=== PATIENT | female | born 1970 | race Hispanic/Latino ===

== ENCOUNTER 2018-06-13 00:21 | Inpatient (IN) | payer MEDICARE, OTHER ==
--- NOTE | 2018-06-13 01:13 | ED PDOC ---
Arrival/HPI - General Chief Complaint: Shortness Of Breath Time Seen by Provider: 06/13/18 00:29 Historian: Other (Attendants) - Critical Care Critical Care Minutes: 30 minutes - History of Present Illness Narrative History of Present Illness (Text): 06/13/18 01:09 A 47 year old female, whose past medical history includes developmental delay, mitral regurgitation, deafness, glaucoma, aortic insufficiency, presents from intermediate via EMS accompanied by attendant for further evaluation of exertional dyspnea and occasional perioral cyanosis over the past couple of days. Patient was seen in [facility]. Patient had extensive work up including labs, ultrasound of lower extremities, and CT Chest Angio. Results were noted. No evidence of any DVT, no embolis, Pulmonary emboli. Patient with a pleural effusion, possible CHF with slight elevation of BNP. Case was discussed with Dr. Whitehead from the [facility]. Patient was administered Lasix there. Patient remains stable. Request from the attendants to transfer patient to [place] for admission and further evaluation. Patient has remained stable with no fevers, chills, headache, dizziness, chest pain, shortness of breath, abdominal pain, nausea, vomiting, diarrhea, back pain, neck pain, urinary/bowel changes, or any other complaint. Patient's symptoms appear to be only exertional. Time/Duration: Other (Several Days) Symptom Onset: Sudden Symptom Course: Unchanged Activities at Onset: Rest, Light Context: Home (Detention) Past Medical History - Provider Review Nursing Documentation Reviewed: Yes - Cardiac Hx Cardiac Disorders: Yes Other/Comment: congenital heart defect - HEENT Hx HEENT Disorder: Yes Hx Blind: Yes Hx Deafness: Yes Hx Glaucoma: Yes - Psychiatric Hx Substance Use: No Family/Social History - Physician Review Nursing Documentation Reviewed: Yes Family/Social History: No Known Family HX Smoking Status: Never Smoked Hx Alcohol Use: No Hx Substance Use: No Allergies/Home Meds Allergies/Adverse Reactions: Allergies bee venom protein (honey bee) Adverse Reaction (Verified 06/13/18 14:09) ANAPHYLAXIS NSAIDS (Non-Steroidal Anti-Inflamma Adverse Reaction (Verified 06/13/18 14:09) NAUSEA Home Medications: Home Meds Medication Instructions Recorded Confirmed Aspirin [Lo-Dose Aspirin EC] 1 tab PO DAILY 06/13/18 Atenolol [Tenormin] 1 tab PO DAILY 06/13/18 06/13/18 Buspirone HCl [Buspirone HCl] 1 tab PO DAILY 06/13/18 06/13/18 Clonazepam [Klonopin] 1 tab PO DAILY 06/13/18 06/13/18 Dorzolamide 2% [Trusopt] 1 - 2 drop OU 06/13/18 FLUoxetine [Prozac] 1 tab PO DAILY 06/13/18 06/13/18 Famotidine [Heartburn Prevention] 1 tab PO DAILY 06/13/18 06/13/18 Ferrous Gluconate [Ferrous 1 tab PO DAILY 06/13/18 06/13/18 Gluconate] Latanoprost 0.005% Opht [Xalatan 1 drop OU 06/13/18 Opht] Rivaroxaban [Xarelto] 1 tab PO DAILY 06/13/18 06/13/18 Trazodone HCl [Trazodone HCl] 1 tab PO DAILY 06/13/18 06/13/18 acetaZOLAMIDE [Diamox 250 mg Tab] 1 tab PO TID 06/13/18 06/13/18 Review of Systems - Physician Review All systems were reviewed & negative as marked: Yes - Review of Systems Constitutional: absent: Fevers, Night Sweats Respiratory: absent: SOB, Cough Cardiovascular: PINEDA. absent: Chest Pain Gastrointestinal: absent: Abdominal Pain, Diarrhea, Nausea, Vomiting Genitourinary Female: absent: Urine Output Changes Musculoskeletal: absent: Back Pain, Neck Pain Skin: Other (Perioral cyanosis ) Neurological: absent: Headache, Dizziness Physical Exam Vital Signs Reviewed: Yes Vital Signs Temp Pulse Resp BP Pulse Ox 06/13/18 05:59 81 19 90/47 L 94 L 06/13/18 04:36 80 18 88/45 L 100 06/13/18 02:19 79 20 83/51 L 100 06/13/18 00:34 98.1 F 84 16 92/57 L 100 Temperature: Afebrile Blood Pressure: Hypotensive Pulse: Regular Respiratory Rate: Normal Appearance: Positive for: Non-Toxic Pain Distress: None Mental Status: No: Alert and Oriented X 3 (Awake and Alert) - Systems Exam Head: Present: Atraumatic, Normocephalic Pupils: Present: Other (Irregularly shaped pupils. ) Extroacular Muscles: Present: EOMI Conjunctiva: Present: Other ((+) Glaucoma) Mouth: Present: Moist Mucous Membranes Neck: Present: Normal Range of Motion Respiratory/Chest: Present: Clear to Auscultation, Good Air Exchange. No: Respiratory Distress, Accessory Muscle Use Cardiovascular: Present: Other (3/6 systolic murmur) Abdomen: No: Tenderness, Distention, Peritoneal Signs Back: Present: Normal Inspection Upper Extremity: Present: Normal Inspection. No: Cyanosis, Edema Lower Extremity: Present: Normal Inspection. No: Edema, Cyanosis Neurological: Present: GCS=15, CN II-XII Intact, Speech Normal Skin: Present: Warm, Dry, Normal Color. No: Rashes Psychiatric: Present: Alert (Awake and Alert), Normal Insight, Normal Concentration Medical Decision Making ED Course and Treatment: 06/13/18 01:18 Impression: A 47 year old female presents to the emergency department via EMS from [facility] for further evaluation of exertional dyspnea and occasional perioral cyanosis. Plan: -- EKG -- Labs -- Reassess and disposition Progress Notes: 06/13/18 02:38: Patient with hypotension. Case discussed with Dr. Santoyo and regional medical director. Will come evaluate patient in the emergency department. 06/13/18 02:47 EKG: Ordered, reviewed, and independently interpreted the EKG. Rate : 81 BPM Rhythm : NSR Interpretation : 1st degree AV block. LAD. Septal infarct. Non-specific ST-T changes. 06/13/18 04:13: Case discussed with Dr Santoyo and regional medical director. State patient is stable for telemetry admission at this time. Accepts to hospitalist service. - Lab Interpretations Lab Results: 06/13/18 01:25 06/13/18 01:25 Lab Results 06/13/18 01:25: WBC 10.5, RBC 3.07 L, Hgb 8.3 L, Hct 27.4 L, MCV 89.3, MCH 27.0 , MCHC 30.3 L, RDW 13.9, Plt Count 263, MPV 12.4 H 06/13/18 01:25: Sodium 140, Potassium 3.8, Chloride 105, Carbon Dioxide 25, Anion Gap 14, BUN 16, Creatinine 0.7, Est GFR ( Amer) > 60, Est GFR (Non- Af Amer) > 60, Random Glucose 102, Calcium 8.5, Total Bilirubin 0.4, AST 30, ALT 35, Alkaline Phosphatase 67, Lactate Dehydrogenase 523, Total Creatine Kinase < 20 L, Troponin I < 0.01, NT-Pro-B Natriuret Pep 1180 H, Total Protein 6.9, Albumin 3.8, Globulin 3.1, Albumin/Globulin Ratio 1.2 06/13/18 01:25: PT 19.5 H, INR 1.69 H, APTT 35.8 - EKG Interpretation Interpreted by ED Physician: Yes Type: 12 lead EKG - Medication Orders Current Medication Orders: Buspirone HCl (Buspar) 30 mg PO DAILY [facility] Last Admin: 06/13/18 10:13 Dose: 30 mg Behavioural Document 06/13/18 10:13 RAMOM (Rec: 06/13/18 10:13 [facility] [place] [place] Maintenance Maintenance Dose Yes Nonmedicinal Nonmedicinal Interventions Redirect Behavior Behavior for Medication: Anxiety Re-Assess: Reassess Psych Meds Document 06/13/18 11:13 RAMOM (Rec: 06/13/18 11:16 [facility] [facility] [place] [facility] Reassess Psych Med Effective Clonazepam (Klonopin) 1 mg PO DAILY [facility] PRN Reason: Protocol Last Admin: 06/13/18 11:00 Dose: 1 mg Behavioural Document 06/13/18 11:00 RAMOM (Rec: 06/13/18 11:00 [facility] [place] Maintenance Maintenance Dose Yes Nonmedicinal Nonmedicinal Interventions Redirect Behavior Behavior for Medication: Anxiety Re-Assess: Reassess Psych Meds Document 06/13/18 12:00 RAMOM (Rec: 06/13/18 13:19 [facility] [place] Reassess Psych Med Effective Dorzolamide HCl (Trusopt) 0 ml OU TID [facility] Last Admin: 06/13/18 13:20 Dose: 1 drop Ferrous Gluconate (Fergon) 324 mg PO DAILY [facility] Last Admin: 06/13/18 10:12 Dose: 324 mg Fluoxetine HCl (Prozac) 10 mg PO DAILY [facility] Last Admin: 06/13/18 10:12 Dose: 10 mg Home Med (Home Med) 0 unit OU TID [facility] Latanoprost (Xalatan Opht) 0 ml OU HS [facility] Metoprolol Tartrate (Lopressor) 25 mg PO BID [facility] Last Admin: 06/13/18 13:49 Dose: 25 mg MAR Pulse and Blood Pressure Document 06/13/18 13:49 RAMOM (Rec: 06/13/18 13:50 [facility] [place] [place] Pulse Pulse Rate (60-90) 80 Blood Pressure Blood Pressure (100/60-150/90) 92/63 Pantoprazole Sodium (Protonix Ec Tab) 40 mg PO 0600 [facility] Pilocarpine HCl (Isopto Carpine 1% Opht Soln) 0 ml OD QID [facility] Last Admin: 06/13/18 13:20 Dose: 1 drop Rivaroxaban (Xarelto) 20 mg PO DAILY [facility] PRN Reason: Protocol Last Admin: 06/13/18 10:12 Dose: 20 mg Trazodone HCl (Desyrel) 100 mg PO HS [facility] Discontinued Medications Adenosine (Adenosine 6 Mg/2 Ml Inj) 6 mg IVP ONCE ONE Stop: 06/13/18 14:22 Last Admin: 06/13/18 14:15 Dose: 6 mg IVP Administration Document 06/13/18 14:15 RAMOM (Rec: 06/13/18 14:53 [facility] [place] [place] Charges for Administration # of IVP Administrations 1 Furosemide (Lasix) 20 mg IVP ONCE ONE Stop: 06/13/18 16:39 Trazodone HCl (Desyrel) 100 mg PO DAILY [facility] - Scribe Statement The provider has reviewed the documentation as recorded by the Frank Sanchez Provider Scribe Attestation: All medical record entries made by the Scribe were at my direction and personally dictated by me. I have reviewed the chart and agree that the record accurately reflects my personal performance of the history, physical exam, medical decision making, and the department course for this patient. I have also personally directed, reviewed, and agree with the discharge instructions and disposition. Disposition/Present on Arrival - Present on Arrival Any Indicators Present on Arrival: No History of DVT/PE: No History of Uncontrolled Diabetes: No Urinary Catheter: No History of Decub. Ulcer: No History Surgical Site Infection Following: None - Disposition Have Diagnosis and Disposition been Completed?: Yes Diagnosis: CHF (congestive heart failure) Disposition: HOSPITALIZED Disposition Time: 04:12 Patient Problems: Current Active Problems Problem Status Onset CHF (congestive heart failure) Acute Condition: STABLE
[2018-06-13 01:37] LABS: HEMOGLOBIN 8.3 g/dL (12.0-16.0); MEAN CELL VOLUME 89.3 fl (80.0-105.0); MEAN CORPUSCULAR HGB CONC 30.3 g/dl (31.0-37.0); MEAN PLATELET VOLUME 12.4 fl (7.0-11.0); RBC 3.07 10^6/uL (3.5-6.1); RED CELL DISTRIBUTION WIDTH 13.9 % (11.5-14.5); WHITE BLOOD COUNT 10.5 10^3/ul (4.5-11.0)
[2018-06-13 01:46] LABS: ALB/GLOB RATIO 1.2 (1.1-1.8); ALBUMIN 3.8 g/dL (3.0-4.8); ALT/SGPT 35 U/L (7-56); AST/SGOT 30 U/L (14-36); BLOOD UREA NITROGEN 16 mg/dL (7-21); CALCIUM 8.5 mg/dL (8.4-10.5); GFR AFRICAN-AMERICAN > 60; GFR NON-AFRICAN AMERICAN > 60
[2018-06-13 01:57] LABS: B-TYPE NATRIURETIC PEPTIDE 1180 pg/mL (0-450); TROPONIN I < 0.01 ng/mL
[2018-06-13 02:21] LABS: INR 1.69 (0.93-1.08); PARTIAL THROMBOPLASTIN TIME 35.8 Seconds (25.1-36.5); PROTHROMBIN TIME 19.5 SECONDS (9.4-12.5)
[2018-06-13 05:09] LABS: BASO # 0.09 K/mm3 (0.0-2.0); EOS # 0.5 (0.0-0.7); EOS % 5.1 % (1.5-5.0); GRAN # 6.37 (1.4-6.5); HEMOGLOBIN 7.8 g/dL (12.0-16.0); LYMPH # 1.2 (1.2-3.4); LYMPH % 13.2 % (22.0-35.0); MEAN CELL VOLUME 89.8 fl (80.0-105.0); MEAN CORPUSCULAR HEMOGLOBIN 27.4 pg (25.0-35.0); MEAN CORPUSCULAR HGB CONC 30.5 g/dl (31.0-37.0); MEAN PLATELET VOLUME 12.3 fl (7.0-11.0); MONO % 10.7 % (1.0-6.0); RBC 2.85 10^6/uL (3.5-6.1); WHITE BLOOD COUNT 9.1 10^3/ul (4.5-11.0)
--- NOTE | 2018-06-13 05:36 | CP.PCM.CON ---
History of Present Illness - History of Present Illness History of Present Illness: Tanner Vivas PGY1 Internal Medicine Web Consultant - ICU Consult Note Past Patient History - Past Social History Smoking Status: Never Smoked - CARDIAC Hx Cardiac Disorders: Yes Other/Comment: congenital heart defect - HEENT Hx HEENT Problems: Yes Hx Blind: Yes Hx Deafness: Yes Hx Glaucoma: Yes - PSYCHIATRIC Hx Substance Use: No Meds Allergies/Adverse Reactions: Allergies Allergy/AdvReac Type Severity Reaction Status Date / Time bee venom protein (honey bee) AdvReac ANAPHYLAXIS Verified 06/13/18 00:39 NSAIDS (Non-Steroidal AdvReac NAUSEA Verified 06/13/18 00:39 Anti-Inflamma Results - Vital Signs Recent Vital Signs: Last Vital Signs Temp 98.1 F 06/13/18 00:34 Pulse 80 06/13/18 04:36 Resp 18 06/13/18 04:36 BP 88/45 L 06/13/18 04:36 Pulse Ox 100 06/13/18 04:36 - Labs Result Diagrams: 06/13/18 05:00 06/13/18 01:25 Labs: Laboratory Results - last 24 hr 06/13/18 05:00 WBC 9.1 RBC 2.85 L Hgb 7.8 L Hct 25.6 L MCV 89.8 MCH 27.4 MCHC 30.5 L RDW 14.0 Plt Count 248 MPV 12.3 H Gran % 70.0 H Lymph % (Auto) 13.2 L [place] % (Auto) 10.7 H Eos % (Auto) 5.1 H Baso % (Auto) 1.0 Gran # 6.37 Lymph # (Auto) 1.2 [place] # (Auto) 1.0 H Eos # (Auto) 0.5 Baso # (Auto) 0.09
[2018-06-13 06:06] LABS: IRON 21 ug/dL (45-180)
[2018-06-13 06:08] LABS: ALB/GLOB RATIO 1.1 (1.1-1.8); ALBUMIN 3.4 g/dL (3.0-4.8); ALT/SGPT 32 U/L (7-56); AST/SGOT 23 U/L (14-36); BLOOD UREA NITROGEN 14 mg/dL (7-21); CALCIUM 8.3 mg/dL (8.4-10.5); GFR AFRICAN-AMERICAN > 60; GFR NON-AFRICAN AMERICAN > 60
[2018-06-13 06:15] LABS: % IRON SATURATION 6 % (20-55); TOTAL IRON BINDING CAPACITY 322 ug/dL (265-497)
--- NOTE | 2018-06-13 06:24 | CP.PCM.HP ---
<Tanner Vivas - Last Filed: 06/13/18 06:03> History of Present Illness - History of Present Illness History of Present Illness: Tanner Vivas DO PGY1 Internal Medicine [employer]cher - Hospital H&P CC: Exertional Dyspnea/ Cyanosis/ Cough 47F w/ a PMH significant for developmental delay, deafness, autism, congenital rubella syndrome, glaucoma, mitral regurgitation, aortic insufficiency, atrial fibrillation anticoagulated w/ xarvaheo [place] [facility] [place] w/ CC of exertional dyspnea, cyanosis, and cough. She is developmentally delayed, only communicates w/ sign language. Care givers noticed that patient has been less tolerant to ambulation and requires frequent stops when walking to catch breath since Monday. Patient was also noted to have increasing cough and wheezing; denies She was sent to [facility] ED and transferred subsequently to [facility] for [place]. Per report, at [facility] pt had no LE DVT on US, CT chest angio showed no PE, did show R sided small pleural effusion; BNP elevated, and subsequently administered lasix. In ED patient was noted to be hypotensive 80s/ 50s HR in 80s with some runs of tachycardia in @ 115. Per field care coordinator pt has not had any decreased appetite, urinary complaints, bowel complaints, hematochezia, melena, sick contacts, recent travel, wt loss/gain, fever, chill, N/V/D/C, . Remainder of ROS was unable to be assessed due to pt's baseline mentation. PMD: Dr. Shepard [place] [facility]: [facility] PMH: As Above Social: Lives in correction; able to ambulate w/o cane Present on Admission - Present on Admission Any Indicators Present on Admission: No Review of Systems - Review of Systems Systems not reviewed;Unavailable: Other (Baseline mentation) Past Patient History - Past Social History Smoking Status: Never Smoked - CARDIAC Hx Cardiac Disorders: Yes Other/Comment: congenital heart defect - HEENT Hx HEENT Problems: Yes Hx Blind: Yes Hx Deafness: Yes Hx Glaucoma: Yes - PSYCHIATRIC Hx Substance Use: No Meds Allergies/Adverse Reactions: Allergies Allergy/AdvReac Type Severity Reaction Status Date / Time bee venom protein (honey bee) AdvReac ANAPHYLAXIS Verified 06/13/18 00:39 NSAIDS (Non-Steroidal AdvReac NAUSEA Verified 06/13/18 00:39 Anti-Inflamma Physical Exam - Constitutional Appears: Non-toxic - Head Exam Head Exam: ATRAUMATIC, NORMOCEPHALIC - Eye Exam Additional comments: Clouded; Cataracts BL - ENT Exam Additional comments: Poor dentation - Neck Exam Neck exam: Positive for: Normal Inspection - Respiratory Exam Respiratory Exam: Rhonchi (BL), NORMAL BREATHING PATTERN. absent: Wheezes - Cardiovascular Exam Cardiovascular Exam: +S1, +S2 Additional comments: Systolic murmur at Aortic Post 3/6 Systolic Murmur at Pulmonary Post 5/6 Systolic Murmur at mitral Post 3/6 - GI/Abdominal Exam GI & Abdominal Exam: Normal Bowel Sounds, Soft. absent: Tenderness - Rectal Exam Rectal Exam: NORMAL INSPECTION Additional comments: FOBT+ - Extremities Exam Extremities exam: Positive for: pedal edema Additional comments: 2+ BL pitting - Psychiatric Exam Additional comments: Appears to be at baseline - Skin Skin Exam: Dry, Intact, Warm Results - Vital Signs Recent Vital Signs: Last Vital Signs Temp 98.1 F 06/13/18 00:34 Pulse 81 06/13/18 05:59 Resp 19 06/13/18 05:59 BP 90/47 L 06/13/18 05:59 Pulse Ox 94 L 06/13/18 05:59 - Labs Result Diagrams: 06/13/18 05:00 06/13/18 01:25 Labs: Laboratory Results - last 24 hr 06/13/18 05:00 WBC 9.1 RBC 2.85 L Hgb 7.8 L Hct 25.6 L MCV 89.8 MCH 27.4 MCHC 30.5 L RDW 14.0 Plt Count 248 MPV 12.3 H Gran % 70.0 H Lymph % (Auto) 13.2 L [place] % (Auto) 10.7 H Eos % (Auto) 5.1 H Baso % (Auto) 1.0 Gran # 6.37 Lymph # (Auto) 1.2 [place] # (Auto) 1.0 H Eos # (Auto) 0.5 Baso # (Auto) 0.09 Assessment & Plan - Assessment and Plan (Free Text) Assessment: 47F w/ a PMH significant for developmental delay, deafness, autism, congenital rubella syndrome, glaucoma, mitral regurgitation, aortic insufficiency, atrial fibrillation anticoagulated w/ xarleto [place] [facility] [place] w/ CC of exertional dyspnea, cyanosis, and cough. Exertional Dyspnea - Pulmonary Edema 2/2 Pulmonary HTN vs Anemia vs Infective etiology CT[facility] from [facility] ED shows R sided pleural effusion; Pt. given 40 lasix at [facility] O2 Sat >95% on nonrebreather; 80-85% off of nonrebreather mask Unclear if murmur at pulmonic position is new onset; no mention in prior documentation [facility] 1180 Hold Acetozolamide 2/2 Hypotension Procal pending ABG pending CXR pending Echocardiogram pending Cardiology consulted Normocytic Anemia Anemia appears to be chronic given patient is on Fe supplement; however unable to establish baseline Hb at this time Follow up w/ PMD Dr. Shepard; FOBT + however appears to be false given Oral Fe Supplement; No gross blood on exam; no tarry stool on exam Iron, TIBC, B12, Folate, Levels pending Hx Atrial Fibrillation Hold rate control w/ atenolol 2/2 Hypotension C/w home Xarleto 1mg QD Hx Psychiatric Disorder/ Developmental Delay -C/w Home Rx below: Buspirone 1mg QD clonazepam 1mg QD prozac 1mg QD Trazadone 1 tab HS GI/ DVT PPX: Protonix / Xarelto as above Dispo: Admit to telemetry for further evaluation of dyspnea/SOB Tanner Vivas DO PGY1 Internal Medicine [employer]cher - Date & Time Date: 06/13/18 Time: 06:25 <Yousif Ortega - Last Filed: 06/13/18 07:04> Results - Vital Signs Recent Vital Signs: Last Vital Signs Temp 98.1 F 06/13/18 00:34 Pulse 81 06/13/18 05:59 Resp 19 06/13/18 05:59 BP 90/47 L 06/13/18 05:59 Pulse Ox 94 L 06/13/18 05:59 - Labs Result Diagrams: 06/13/18 05:00 06/13/18 05:00 Labs: Laboratory Results - last 24 hr 06/13/18 06/13/18 06/13/18 05:00 05:00 05:00 WBC 9.1 RBC 2.85 L Hgb 7.8 L Hct 25.6 L MCV 89.8 MCH 27.4 MCHC 30.5 L RDW 14.0 Plt Count 248 MPV 12.3 H Gran % 70.0 H Lymph % (Auto) 13.2 L [place] % (Auto) 10.7 H Eos % (Auto) 5.1 H Baso % (Auto) 1.0 Gran # 6.37 Lymph # (Auto) 1.2 [place] # (Auto) 1.0 H Eos # (Auto) 0.5 Baso # (Auto) 0.09 Sodium 140 Potassium 3.8 Chloride 107 Carbon Dioxide 25 Anion Gap 12 BUN 14 Creatinine 0.7 Est GFR ( Amer) > 60 Est GFR (Non-Af Amer) > 60 Random Glucose 97 Calcium 8.3 L Iron 21 L TIBC 322 % Saturation 6 L Total Bilirubin 0.3 AST 23 ALT 32 Alkaline Phosphatase 60 Total Protein 6.3 Albumin 3.4 Globulin 3.0 Albumin/Globulin Ratio 1.1 Assessment & Plan - Assessment and Plan (Free Text) Plan: Pt seen and examined by me independently, I agree with the above note by resident.
[2018-06-13 07:16] LABS: ARTERIAL BLOOD GAS PCO2 43 mm/Hg (35-45); ARTERIAL BLOOD GAS PH 7.38 (7.35-7.45)
[2018-06-13 07:17] LABS: ARTERIAL BLOOD GAS HCO3 25.4 mmol/L (21-28); ARTERIAL BLOOD GAS TCO2 26.7 mmol.L (22-28)
[2018-06-13 07:18] LABS: ARTERIAL BLOOD GAS O2 SAT 99.8 % (95-98)
[2018-06-13] MEDS ORDERED: Sodium Chloride 0.9% 250 ML IV STA (07:24)
[2018-06-13] MEDS: Dorzolamide 2% Opht Sol 10ml OU SCH ×3 (11:00→17:44)
--- NOTE | 2018-06-13 11:08 | CP.PCM.CON ---
History of Present Illness - History of Present Illness History of Present Illness: John Hale DO PGY-1, ICU Consult note for Dr. Mccoy CC: Exertional Dyspnea/ Cyanosis/ Cough 47F w/ a PMH of developmental delay, deafness, autism, congenital rubella syndrome, HTN, glaucoma, mitral regurgitation, aortic insufficiency, atrial fibrillation anticoagulated w/ Xarelto (last dose 6 pm 06/12), neurogenic bladder (wears adult diaper), anxiety presents to [facility] on 06/13 w/ CC of exertional dyspnea, cyanosis, and cough. She is developmentally delayed, only communicates w/ sign language and finger spelling with caretaker resort (Bar). Pt' s sputum has not been evaluated as she is swallowing after coughing. Care givers reports pt has had shortness of breath on 06/08, with associated blue discoloration of lips, that resolved after five minutes of rest. Caregiver also states that the patient's lips turned blue again while short of breath last night, which prompted evaluation at [facility] ED. As per reports, bilateral lower extremity dopplar showed no evidence of DVT. Chest CTA showed no PE, right sided small pleural effusion. Pt's BNP was elevated at 400, and she received Lasix 40 mg IVP. Pt was admitted to the floor early this morning for medical management. ICU was consulted for respiratory distress ( tachypnea) and hypotension (90/47). Pt was seen and examined at bedside. Translation was done by caregiver using combination of sign language and finger spelling. We attempted using [employer] video translation but pt is not fluent in sign language and unable to understand video job putter up and ticket preparer. As per caregiver, pt feels the same as earlier today without any substantial improvement. Pt has not had decreased appetite, urinary complaints, bowel complaints, hematochezia, melena, recent travel, wt loss/gain, fever, chill, N/V/D/C. Pt denies chest pain. PMD: Dr. Shepard, [place] Pharmacy: [facility] PMH: see HPI PSHx: open heart surgery likely due to valve replacement; caregiver denies history of CAD FMHx: father is deaf; mother 3 years ago (cause unknown) Allx: Bee sting, NSAIDs Social: Lives in [facility]; able to ambulate w/o cane. denies etoh, smoking, illicit drug use. Review of Systems - Review of Systems Systems not reviewed;Unavailable: Language Barrier (pt is deaf, and autistic; poor communication with sign language) All systems: reviewed and no additional remarkable complaints except (as per HPI ) Past Patient History - Past Social History Smoking Status: Never Smoked Alcohol: None Drugs: Denies Home Situation {Lives}: Other (lives in [facility]) - CARDIAC Hx Cardiac Disorders: Yes Hx Atrial Fibrillation: Yes (on xarelto) Hx Hypertension: Yes Other/Comment: congenital heart defect - NEUROLOGICAL Other/Comment: autism, congential rubella syndrome - HEENT Hx HEENT Problems: Yes Hx Blind: Yes Hx Deafness: Yes Hx Glaucoma: Yes - GENITOURINARY/GYNECOLOGICAL Hx Genitourinary Disorders: Yes (neurogenic bladder) - PSYCHIATRIC Hx Anxiety: Yes Hx Substance Use: No - SURGICAL HISTORY Hx Surgeries: Yes (open heart) Meds Allergies/Adverse Reactions: Allergies Allergy/AdvReac Type Severity Reaction Status Date / Time bee venom protein (honey bee) AdvReac ANAPHYLAXIS Verified 06/13/18 00:39 NSAIDS (Non-Steroidal AdvReac NAUSEA Verified 06/13/18 00:39 Anti-Inflamma - Medications Medications: Current Medications Buspirone HCl (Buspar) 30 mg PO DAILY LURDES Clonazepam (Klonopin) 1 mg PO DAILY LURDES PRN Reason: Protocol Dorzolamide HCl (Trusopt) 0 ml OU TID LURDES Ferrous Gluconate (Fergon) 324 mg PO DAILY LURDES Fluoxetine HCl (Prozac) 10 mg PO DAILY LURDES Latanoprost (Xalatan Opht) 0 ml OU HS LURDES Pantoprazole Sodium (Protonix Ec Tab) 40 mg PO 0600 LURDES Rivaroxaban (Xarelto) 20 mg PO DAILY LURDES PRN Reason: Protocol Trazodone HCl (Desyrel) 100 mg PO HS LURDES Physical Exam - Constitutional Appears: No Acute Distress - Head Exam Head Exam: ATRAUMATIC, NORMAL INSPECTION. absent: NORMOCEPHALIC (microcephaly) - Eye Exam Eye Exam: EOMI. absent: Conjunctival injection, Normal appearance (glaucoma), Scleral icterus - ENT Exam ENT Exam: Mucous Membranes Moist - Neck Exam Neck exam: Positive for: Normal Inspection - Respiratory Exam Respiratory Exam: Rales (diffuse, worse on left lung hernández), Wheezes (scattered ). absent: Accessory Muscle Use, Clear to Auscultation Bilateral - Cardiovascular Exam Cardiovascular Exam: REGULAR RHYTHM, Systolic Murmur (harsh, loudest in pulmonic valve) - GI/Abdominal Exam GI & Abdominal Exam: Normal Bowel Sounds (in all 4 quadrants), Soft. absent: Tenderness - Extremities Exam Extremities exam: Positive for: pedal edema (3+ pitting edema to the knees bilaterally) - Neurological Exam Neurological exam: Alert - Psychiatric Exam Psychiatric exam: Normal Affect - Skin Skin Exam: Dry, Intact, Normal Color ((+) ecchymosis to right lower extremity), Warm Results - Vital Signs Recent Vital Signs: Last Vital Signs Temp 98.1 F 06/13/18 00:34 Pulse 80 06/13/18 09:31 Resp 22 06/13/18 09:30 BP 94/66 L 06/13/18 09:23 Pulse Ox 100 06/13/18 09:30 - Labs Result Diagrams: 06/13/18 05:00 06/13/18 05:00 Labs: Laboratory Results - last 24 hr 06/13/18 06/13/18 06/13/18 05:00 05:00 05:00 WBC 9.1 RBC 2.85 L Hgb 7.8 L Hct 25.6 L MCV 89.8 MCH 27.4 MCHC 30.5 L RDW 14.0 Plt Count 248 MPV 12.3 H Gran % 70.0 H Lymph % (Auto) 13.2 L [place] % (Auto) 10.7 H Eos % (Auto) 5.1 H Baso % (Auto) 1.0 Gran # 6.37 Lymph # (Auto) 1.2 [place] # (Auto) 1.0 H Eos # (Auto) 0.5 Baso # (Auto) 0.09 pCO2 pO2 HCO3 ABG pH ABG Total CO2 ABG O2 Saturation ABG Base Excess ABG Hemoglobin ABG Carboxyhemoglobin POC ABG HHb (Measured) ABG Methemoglobin Hgb O2 Saturation Sodium 140 Potassium 3.8 Chloride 107 Carbon Dioxide 25 Anion Gap 12 BUN 14 Creatinine 0.7 Est GFR ( Amer) > 60 Est GFR (Non-Af Amer) > 60 Random Glucose 97 Calcium 8.3 L Iron 21 L TIBC 322 % Saturation 6 L Total Bilirubin 0.3 AST 23 ALT 32 Alkaline Phosphatase 60 Total Protein 6.3 Albumin 3.4 Globulin 3.0 Albumin/Globulin Ratio 1.1 Blood Type Antibody Screen Crossmatch BBK History Checked 06/13/18 06/13/18 05:43 09:30 WBC RBC Hgb Hct MCV MCH MCHC RDW Plt Count MPV Gran % Lymph % (Auto) [place] % (Auto) Eos % (Auto) Baso % (Auto) Gran # Lymph # (Auto) [place] # (Auto) Eos # (Auto) Baso # (Auto) pCO2 43 pO2 332.0 H HCO3 25.4 ABG pH 7.38 ABG Total CO2 26.7 ABG O2 Saturation 99.8 H ABG Base Excess 0.2 ABG Hemoglobin 8.0 L ABG Carboxyhemoglobin 2.0 H POC ABG HHb (Measured) 0.2 ABG Methemoglobin 1.2 Hgb O2 Saturation 96.5 Sodium Potassium Chloride Carbon Dioxide Anion Gap BUN Creatinine Est GFR ( Amer) Est GFR (Non-Af Amer) Random Glucose Calcium Iron TIBC % Saturation Total Bilirubin AST ALT Alkaline Phosphatase Total Protein Albumin Globulin Albumin/Globulin Ratio Blood Type A POSITIVE Antibody Screen Negative Crossmatch See Detail BBK History Checked No verified bt Assessment & Plan - Assessment and Plan (Free Text) Assessment: This is a 47 year old F w/ a PMH of HTN, mitral regurgitation, aortic insufficiency, atrial fibrillation anticoagulated w/ Xarelto (last dose 6 pm ), congenital rubella syndrome, developmental delay, deafness, autism, glaucoma, neurogenic bladder (wears adult diapers), anxiety presents to [facility] on 06/13 w/ CC of exertional dyspnea, cyanosis, and cough. Pt was evaluated at [facility] ED on 06/12. As per reports, bilateral lower extremity dopplar showed no evidence of DVT. Chest CTA showed no PE, right sided small pleural effusion. Pt's BNP was elevated at 400, and she received Lasix 40 mg IVP. Pt was admitted to the floor early this morning for medical management. ICU was consulted for respiratory distress (tachypnea) and hypotension (90/47). Plan: Neuro: - monitor for mental status changes - pt is nonverbal at baseline (autism and congenital rubella syndrome), but is able to answer questions via interpretor (caretaker resort [place]) Cardio: - maintain MAP>65 mmHg - BNP elevated at 1180 - troponin is negative - Lasix 40 mg IVP after blood transfusion - monitor vital signs - atenolol is on hold due to BP - f/u echocardiogram - cardiology consulted, will f/u with recs Pulm: - Chest CTA (06/12): No PE, small right plueral effusion. - maintain spo2>90% - O2 via ventimask prn - HoB>30 degrees GI: - ppx with ppi - HHD Renal: - maintain euvolemia - replete electrolytes as needed - pt has neurogenic bladder (incontinent) at baseline Heme: - per PMD and medical team, pt's baseline hgb is 14, and experienced heavy menstrual period recently - will transfuse 2 units pRBCs, and follow up H/H - transvginal US will be done to rule out organic causes - goal Hgb is greater than 9 ID: - no leukocytosis, pt afebrile - f/u procalcitonin Endo: - maintain euglycemia - TSH is normal per record from [facility] PPX: PPI for GI; pt received xarelto dose today, but future vte ppx with SCDs Dispo: Manage the pt in the ICU for hypotension and symptomatic anemia Case was reviewed and discussed with attending physician, Dr. Mccoy
[2018-06-13 12:23] LABS: FERRITIN 14.2 ng/mL
[2018-06-13 12:54] LABS: FOLATE 15.7 ng/mL
[2018-06-13] MEDS: Pilocarpine 1% Opht (15ml) OD SCH ×3 (13:20→21:51)
--- NOTE | 2018-06-13 16:04 | CON ---
DATE: 06/13/2018 CARDIOLOGY CONSULTATION HISTORY: The patient is a 47-year-old woman with a history of developmental issues, congenital heart disease as well as apparently some kind of heart surgery and follows at [facility] for several years. What we do know is that she suffers from chronic atrial fibrillation, treated with anticoagulation. No other cardiac history is obtainable, though we are attempting to call the oxygen plant operator to get some information. She presented with dyspnea and after the Lasix, developed hypotension, was transferred to the ICU. Currently, the patient is not in any distress. In the ICU, the patient was in an SVT at 120 and converted spontaneously. PHYSICAL EXAMINATION: GENERAL: Currently, the patient is in bed, awake and alert. VITAL SIGNS: Blood pressure is 92/63, heart rates in the 80s, normal sinus rhythm after conversion. NECK: Negative JVD. LUNGS: Decreased breath sounds. HEART: Reveals II/ systolic ejection murmur. EXTREMITIES: Without edema. EKG shows normal sinus rhythm with an IVCD, first-degree heart block noted. LABORATORY DATA: BUN and creatinine are unremarkable. ProBNP was 1180. Troponin is negative x1. Hemoglobin is 7.8. IMPRESSION: 1. Dyspnea, likely due to diastolic congestive heart failure. 2. Questionable aortic valve disease and probable aortic valve disease. 3. Anemia. 4. Chronic atrial fibrillation with an episode of supraventricular tachycardia, which spontaneously converted to normal sinus rhythm. 5. Anemia. 6. History of congenital heart disease. PLAN: Given these findings, we will need to obtain history from her oxygen plant operator at [facility] in terms of her previous cardiac history. We will start the patient on beta blockers at this time to help control her heart rate. Echocardiogram has been ordered. Yuriy Rg MD
[2018-06-13 17:10] VITALS: BMI 26.9
[2018-06-13] MEDS ORDERED: Pneumococcal 23-Valent Vaccine IM ONE (17:10)
[2018-06-13] MEDS: ALPHAGAN P 0.1% OU SCH (17:44)
--- NOTE | 2018-06-13 18:22 | CARD ---
APPROVED REPORT Date of service: 06/13/2018 EXAM: Two-dimensional and M-mode echocardiogram with Doppler and color Doppler. INDICATION 2D DIMENSIONS Left Atrium (2D)5.2 (1.6-4.0cm)IVSd1.2 (0.7-1.1cm) LVDd3.7 (3.9-5.9cm)LVOT Diameter2.3 (1.8-2.4cm) PWd1.2 (0.7-1.1cm)LVDs2.3 (2.5-4.0cm) FS (%) 37.2 %LVEF (%)68.0 (>50%) M-Mode DIMENSIONS Aortic Root1.30 (2.2-3.7cm) Aortic Valve AoV Peak Oxtmqdsu934.0cm/sAoV SXL772.0cmAO Peak GR.101mmHg LVOT Peak Uwkdlvvo73.3cm/sLVOT VTI17.70cmAO Mean GR.53mmHg JOSE ANTONIO (VMAX)0.21qt3QXN (VTI)0.40ic8SO P 1/2 Lnsa036ns Mitral Valve MV E Xbedfadc966.0cm/sMV E Peak Gr.149mmHgMV A Usrhfrfl69.4cm/s E/A ratio2.9 TDI Lateral E' Peak V13.60cm/sMedial E' Peak V8.77cm/sE/Lateral E'12.1 E/Medial E'18.8 Tricuspid Valve TR Peak Wwejiyux096mf/sRAP [id number] Peak Gr.36mmHg [id number] LEFT VENTRICLE The left ventricle is normal size. There is normal left ventricular wall thickness. The left ventricular function is normal. The left ventricular ejection fraction is within the normal range. There is normal LV segmental wall motion. RIGHT VENTRICLE The right ventricle is normal size. There is normal right ventricular wall thickness. The right ventricular systolic function is normal. ATRIA The left atrium is moderately dilated. The right atrium is moderately dilated. AORTIC VALVE The aortic valve is bicusped and moderately calcified There is severe aortic regurgitation. There is severe valvular aortic stenosis. MITRAL VALVE The mitral valve is moderately thickened. Mitral regurgitation is moderate. TRICUSPID VALVE There is mild to moderate tricuspid regurgitation. There is mild to moderate pulmonary hypertension. GREAT VESSELS The aortic root is mildly enlarged. The IVC is dilated. <Conclusion> The aortic valve is bicusped and moderately calcified There is severe aortic regurgitation. There is severe valvular aortic stenosis. Mitral regurgitation is moderate. There is mild to moderate tricuspid regurgitation. There is mild to moderate pulmonary hypertension. There is normal left ventricular wall thickness. The left ventricular function is normal. The left ventricular ejection fraction is within the normal range.
--- NOTE | 2018-06-13 18:42 | CARD ---
APPROVED REPORT Date of service: 06/13/2018 EKG Measurement Heart [id number] <Conclusion> Sinus rhythm with 1st degree AV block Left axis deviation Left ventricular hypertrophy with QRS widening and repolarization abnormality Cannot rule out Septal infarct, age undetermined Abnormal ECG
[2018-06-13 20:08] LABS: BASO # 0.08 K/mm3 (0.0-2.0); BASO % 0.9 % (0.0-3.0); EOS # 0.5 (0.0-0.7); EOS % 5.1 % (1.5-5.0); GRAN # 6.26 (1.4-6.5); GRAN % 70.4 % (50.0-68.0); HEMOGLOBIN 11.2 g/dL (12.0-16.0); LYMPH # 1.1 (1.2-3.4); MEAN CELL VOLUME 86.6 fl (80.0-105.0); MEAN CORPUSCULAR HEMOGLOBIN 27.8 pg (25.0-35.0); MEAN CORPUSCULAR HGB CONC 32.1 g/dl (31.0-37.0); MEAN PLATELET VOLUME 12.1 fl (7.0-11.0); MONO % 11.6 % (1.0-6.0); RBC 4.03 10^6/uL (3.5-6.1); RED CELL DISTRIBUTION WIDTH 14.8 % (11.5-14.5); WHITE BLOOD COUNT 8.9 10^3/ul (4.5-11.0)
[2018-06-13] MEDS: Latanoprost 2.5 ml Opht Soln OU SCH (21:53)
[2018-06-13 23:25] LABS: URINE BILIRUBIN NEGATIVE (NEGATIVE); URINE BLOOD NEGATIVE (NEGATIVE); URINE GLUCOSE (UA) NEGATIVE (NEGATIVE); URINE LEUKOCYTE ESTERASE NEGATIVE Leu/uL (NEGATIVE); URINE PROTEIN NEGATIVE mg/dL (<30 mg/dL); URINE UROBILINOGEN 0.2 E.U./dL (<1 E.U./dL)
[2018-06-13 23:29] LABS: URINE APPEARANCE CLEAR (CLEAR); URINE COLOR LIGHT YELLOW (YELLOW)
[2018-06-14] MEDS: Pantoprazole 40 mg EC Tab PO SCH (05:47)
[2018-06-14 06:00] LABS: BASO # 0.08 K/mm3 (0.0-2.0); EOS # 0.6 (0.0-0.7); EOS % 7.1 % (1.5-5.0); GRAN # 5.27 (1.4-6.5); GRAN % 68.1 % (50.0-68.0); HEMOGLOBIN 11.4 g/dL (12.0-16.0); LYMPH # 0.6 (1.2-3.4); LYMPH % 8.1 % (22.0-35.0); MEAN CELL VOLUME 85.6 fl (80.0-105.0); MEAN CORPUSCULAR HEMOGLOBIN 27.3 pg (25.0-35.0); MEAN CORPUSCULAR HGB CONC 31.9 g/dl (31.0-37.0); MEAN PLATELET VOLUME 12.5 fl (7.0-11.0); MONO # 1.2 (0.1-0.6); MONO % 15.7 % (1.0-6.0); RBC 4.17 10^6/uL (3.5-6.1); RED CELL DISTRIBUTION WIDTH 15.1 % (11.5-14.5); WHITE BLOOD COUNT 7.8 10^3/ul (4.5-11.0)
[2018-06-14 06:10] LABS: BLOOD UREA NITROGEN 14 mg/dL (7-21); CALCIUM 8.9 mg/dL (8.4-10.5); GFR AFRICAN-AMERICAN > 60; GFR NON-AFRICAN AMERICAN > 60
--- NOTE | 2018-06-14 07:24 | CP.CCUPN ---
<John Hale - Last Filed: 06/14/18 09:45> CCU Subjective - Physician Review Subjective (Free Text): John Hale DO PGY-1, ICU progress note for Dr. Mccoy Pt was seen and examined at bedside. Commercial Glazier is not at bedside, and I was unable to interview the pt effectively due to baseline deafness, intellectual disability and inability to communicate without assistance of caregiver. No acute events overnight; pt has been afebrile, and produced 1400 mL of clear urine via purewick catheter. Pt has neurogenic bladder at baseline. No bowel movements overnight. A 12-point ROS was unobtainable due to pt being deaf with developmental delay at baseline. CCU Objective - Vital Signs / Intake & Output Vital Signs (Last 4 hours): Vital Signs Temp Pulse 06/14/18 06:00 80 06/14/18 04:00 97.8 F Intake and Output (Last 8hrs): Intake & Output 06/13/18 06/14/18 06/14/18 22:59 06:59 14:59 Intake Total 1170 300 Output Total 0 1400 Balance 1170 -1100 Weight 68.946 kg 68.946 kg Intake: Oral 480 300 Blood Product 650 Red Blood Cells Cpd As1 325 Lr Unit [id number] Red Blood Cells Cpd As1 325 Lr Unit [id number] Other 40 Red Blood Cells Cpd As1 20 Lr Unit [id number] Red Blood Cells Cpd As1 20 Lr Unit [id number] Output: Urine 0 1400 Condom 0 1400 Other: Voiding Method Incontinent # Bowel Movements 0 0 - Physical Exam Physical Exam Limitations: Positive for: Other (intellectual disability, autism) Head: Positive for: Atraumatic. Negative for: Normocephalic (microcephaly) Pupils: Positive for: Other (Irregularly shaped pupils. ) Extroacular Muscles: Positive for: EOMI Conjunctiva: Positive for: Other ((+) Glaucoma) Mouth: Positive for: Moist Mucous Membranes Nose (Internal): Negative for: Normal Inspection (syndromic faces consistent iwth congenital rubells syndrom) Neck: Positive for: Normal Range of Motion Respiratory/Chest: Positive for: Good Air Exchange, Rales (diffuse; more prominent in left lung hernández). Negative for: Respiratory Distress, Accessory Muscle Use, Wheezes Cardiovascular: Positive for: Other (5/6 systolic murmur that is most prominent at pulmonic valve) Abdomen: Negative for: Tenderness, Distention, Peritoneal Signs Back: Positive for: Normal Inspection Upper Extremity: Positive for: Normal Inspection. Negative for: Cyanosis, Edema Lower Extremity: Positive for: Normal Inspection. Negative for: Edema, CALF TENDERNESS, Cyanosis Neurological: Positive for: GCS=15, CN II-XII Intact, Speech Normal Skin: Positive for: Warm, Dry, Normal Color. Negative for: Rashes Psychiatric: Positive for: Alert (Awake and Alert), Normal Insight, Normal Concentration - Medications Active Medications: Active Medications Generic Name Dose Route Start Last Admin Trade Name Freq PRN Reason Stop Dose Admin Buspirone HCl 30 mg 06/13/18 10:00 06/13/18 10:13 Buspar PO 30 mg DAILY LURDES Administration Clonazepam 1 mg 06/13/18 10:00 06/13/18 11:00 Klonopin PO 1 mg DAILY LURDES Administration Protocol Dorzolamide HCl 0 ml 06/13/18 10:00 06/13/18 17:44 Trusopt OU 1 drop TID LURDES Administration Ferrous Gluconate 324 mg 06/13/18 10:00 06/13/18 10:12 Fergon PO 324 mg DAILY LURDES Administration Fluoxetine HCl 10 mg 06/13/18 10:00 06/13/18 10:12 Prozac PO 10 mg DAILY LURDES Administration Home Med 0 unit 06/13/18 18:00 06/13/18 17:44 Home Med OU 1 unit TID LURDES Administration Latanoprost 0 ml 06/13/18 22:00 06/13/18 21:53 Xalatan Opht OU 2.5 ml HS LURDES Administration Metoprolol Tartrate 25 mg 06/13/18 18:00 06/13/18 17:32 Lopressor PO Not Given BID LURDES Pantoprazole Sodium 40 mg 06/14/18 06:00 06/14/18 05:47 Protonix Ec Tab PO 40 mg 0600 LURDES Administration Pilocarpine HCl 0 ml 06/13/18 14:00 06/13/18 21:51 Isopto Carpine 1% Opht Soln OD 1 drop QID LURDES Administration Rivaroxaban 20 mg 06/13/18 10:00 06/13/18 10:12 Xarelto PO 20 mg DAILY LURDES Administration Protocol Trazodone HCl 100 mg 06/13/18 22:00 06/13/18 21:51 Desyrel PO 100 mg HS LURDES Administration - Patient Studies Lab Studies: Lab Studies 06/14/18 06/14/18 06/13/18 Range/Units 05:45 05:45 22:50 WBC 7.8 (4.5-11.0) 10^3/ul RBC 4.17 (3.5-6.1) 10^6/uL Hgb 11.4 L (12.0-16.0) g/dL Hct 35.7 L (36.0-48.0) % MCV 85.6 (80.0-105.0) fl MCH 27.3 (25.0-35.0) pg MCHC 31.9 (31.0-37.0) g/dl RDW 15.1 H (11.5-14.5) % Plt Count 231 (120.0-450.0) 10^3/uL MPV 12.5 H (7.0-11.0) fl Gran % 68.1 H (50.0-68.0) % Lymph % (Auto) 8.1 L (22.0-35.0) % Darke % (Auto) 15.7 H (1.0-6.0) % Eos % (Auto) 7.1 H (1.5-5.0) % Baso % (Auto) 1.0 (0.0-3.0) % Gran # 5.27 (1.4-6.5) Lymph # (Auto) 0.6 L (1.2-3.4) Darke # (Auto) 1.2 H (0.1-0.6) Eos # (Auto) 0.6 (0.0-0.7) Baso # (Auto) 0.08 (0.0-2.0) K/mm3 pCO2 (35-45) mm/Hg pO2 (80-100) mm/Hg HCO3 (21-28) mmol/L ABG pH (7.35-7.45) ABG Total CO2 (22-28) mmol.L ABG O2 Saturation (95-98) % ABG Base Excess (-2.0-3.0) mmol/L ABG Hemoglobin (11.7-17.4) g/dL ABG Carboxyhemoglobin (0.5-1.5) % POC ABG HHb (Measured) (0-5) % ABG Methemoglobin (0.0-3.0) % Hgb O2 Saturation (95.0-98.0) % Sodium 141 (132-148) mmol/L Potassium 4.0 (3.6-5.0) mmol/L Chloride 106 (98-107) mmol/L Carbon Dioxide 27 (21-33) mmol/L Anion Gap 13 (10-20) BUN 14 (7-21) mg/dL Creatinine 0.7 (0.7-1.2) mg/dl Est GFR ( Amer) > 60 Est GFR (Non-Af Amer) > 60 Random Glucose 92 (70-110) mg/dL Calcium 8.9 (8.4-10.5) mg/dL Ferritin ng/mL Total Bilirubin (0.2-1.3) mg/dL AST (14-36) U/L ALT (7-56) U/L Alkaline Phosphatase (38-126) U/L Total Protein (5.8-8.3) g/dL Albumin (3.0-4.8) g/dL Globulin gm/dL Albumin/Globulin Ratio (1.1-1.8) Vitamin B12 (239-931) pg/mL Folate ng/mL Procalcitonin (0.19-0.49) NG/ML Urine Color Light yellow (YELLOW) Urine Appearance Clear (CLEAR) Urine pH 6.0 (4.7-8.0) Ur Specific [place] 1.010 (1.005-1.035) Urine Protein Negative (<30 mg/dL) mg/dL Urine Glucose (UA) Negative (NEGATIVE) mg/dL Urine Ketones Negative (NEGATIVE) mg/dL Urine Blood Negative (NEGATIVE) Urine Nitrate Negative (NEGATIVE) Urine Bilirubin Negative (NEGATIVE) Urine Urobilinogen 0.2 (<1 E.U./dL) E.U./dL Ur Leukocyte Esterase Negative (NEGATIVE) Kait/uL Blood Type Blood Type Confirm Antibody Screen Crossmatch BBK History Checked 06/13/18 06/13/18 06/13/18 Range/Units 18:55 09:45 09:30 WBC 8.9 (4.5-11.0) 10^3/ul RBC 4.03 (3.5-6.1) 10^6/uL Hgb 11.2 L D (12.0-16.0) g/dL Hct 34.9 L (36.0-48.0) % MCV 86.6 D (80.0-105.0) fl MCH 27.8 (25.0-35.0) pg MCHC 32.1 (31.0-37.0) g/dl RDW 14.8 H (11.5-14.5) % Plt Count 239 (120.0-450.0) 10^3/uL MPV 12.1 H (7.0-11.0) fl Gran % 70.4 H (50.0-68.0) % Lymph % (Auto) 12.0 L (22.0-35.0) % Darke % (Auto) 11.6 H (1.0-6.0) % Eos % (Auto) 5.1 H (1.5-5.0) % Baso % (Auto) 0.9 (0.0-3.0) % Gran # 6.26 (1.4-6.5) Lymph # (Auto) 1.1 L (1.2-3.4) Darke # (Auto) 1.0 H (0.1-0.6) Eos # (Auto) 0.5 (0.0-0.7) Baso # (Auto) 0.08 (0.0-2.0) K/mm3 pCO2 (35-45) mm/Hg pO2 (80-100) mm/Hg HCO3 (21-28) mmol/L ABG pH (7.35-7.45) ABG Total CO2 (22-28) mmol.L ABG O2 Saturation (95-98) % ABG Base Excess (-2.0-3.0) mmol/L ABG Hemoglobin (11.7-17.4) g/dL ABG Carboxyhemoglobin (0.5-1.5) % POC ABG HHb (Measured) (0-5) % ABG Methemoglobin (0.0-3.0) % Hgb O2 Saturation (95.0-98.0) % Sodium (132-148) mmol/L Potassium (3.6-5.0) mmol/L Chloride (98-107) mmol/L Carbon Dioxide (21-33) mmol/L Anion Gap (10-20) BUN (7-21) mg/dL Creatinine (0.7-1.2) mg/dl Est GFR ( Amer) Est GFR (Non-Af Amer) Random Glucose (70-110) mg/dL Calcium (8.4-10.5) mg/dL Ferritin ng/mL Total Bilirubin (0.2-1.3) mg/dL AST (14-36) U/L ALT (7-56) U/L Alkaline Phosphatase (38-126) U/L Total Protein (5.8-8.3) g/dL Albumin (3.0-4.8) g/dL Globulin gm/dL Albumin/Globulin Ratio (1.1-1.8) Vitamin B12 (239-931) pg/mL Folate ng/mL Procalcitonin (0.19-0.49) NG/ML Urine Color (YELLOW) Urine Appearance (CLEAR) Urine pH (4.7-8.0) Ur Specific [place] (1.005-1.035) Urine Protein (<30 mg/dL) mg/dL Urine Glucose (UA) (NEGATIVE) mg/dL Urine Ketones (NEGATIVE) mg/dL Urine Blood (NEGATIVE) Urine Nitrate (NEGATIVE) Urine Bilirubin (NEGATIVE) Urine Urobilinogen (<1 E.U./dL) E.U./dL Ur Leukocyte Esterase (NEGATIVE) Kait/uL Blood Type A POSITIVE Blood Type Confirm A POSITIVE Antibody Screen Negative Crossmatch See Detail BBK History Checked No verified bt 06/13/18 06/13/18 06/13/18 Range/Units 05:43 05:00 05:00 WBC (4.5-11.0) 10^3/ul RBC (3.5-6.1) 10^6/uL Hgb (12.0-16.0) g/dL Hct (36.0-48.0) % MCV (80.0-105.0) fl MCH (25.0-35.0) pg MCHC (31.0-37.0) g/dl RDW (11.5-14.5) % Plt Count (120.0-450.0) 10^3/uL MPV (7.0-11.0) fl Gran % (50.0-68.0) % Lymph % (Auto) (22.0-35.0) % Darke % (Auto) (1.0-6.0) % Eos % (Auto) (1.5-5.0) % Baso % (Auto) (0.0-3.0) % Gran # (1.4-6.5) Lymph # (Auto) (1.2-3.4) Darke # (Auto) (0.1-0.6) Eos # (Auto) (0.0-0.7) Baso # (Auto) (0.0-2.0) K/mm3 pCO2 43 (35-45) mm/Hg pO2 332.0 H (80-100) mm/Hg HCO3 25.4 (21-28) mmol/L ABG pH 7.38 (7.35-7.45) ABG Total CO2 26.7 (22-28) mmol.L ABG O2 Saturation 99.8 H (95-98) % ABG Base Excess 0.2 (-2.0-3.0) mmol/L ABG Hemoglobin 8.0 L (11.7-17.4) g/dL ABG Carboxyhemoglobin 2.0 H (0.5-1.5) % POC ABG HHb (Measured) 0.2 (0-5) % ABG Methemoglobin 1.2 (0.0-3.0) % Hgb O2 Saturation 96.5 (95.0-98.0) % Sodium 140 (132-148) mmol/L Potassium 3.8 (3.6-5.0) mmol/L Chloride 107 (98-107) mmol/L Carbon Dioxide 25 (21-33) mmol/L Anion Gap 12 (10-20) BUN 14 (7-21) mg/dL Creatinine 0.7 (0.7-1.2) mg/dl Est GFR ( Amer) > 60 Est GFR (Non-Af Amer) > 60 Random Glucose 97 (70-110) mg/dL Calcium 8.3 L (8.4-10.5) mg/dL Ferritin 14.2 ng/mL Total Bilirubin 0.3 (0.2-1.3) mg/dL AST 23 (14-36) U/L ALT 32 (7-56) U/L Alkaline Phosphatase 60 (38-126) U/L Total Protein 6.3 (5.8-8.3) g/dL Albumin 3.4 (3.0-4.8) g/dL Globulin 3.0 gm/dL Albumin/Globulin Ratio 1.1 (1.1-1.8) Vitamin B12 510 (239-931) pg/mL Folate 15.7 ng/mL Procalcitonin < 0.05 L (0.19-0.49) NG/ML Urine Color (YELLOW) Urine Appearance (CLEAR) Urine pH (4.7-8.0) Ur Specific [place] (1.005-1.035) Urine Protein (<30 mg/dL) mg/dL Urine Glucose (UA) (NEGATIVE) mg/dL Urine Ketones (NEGATIVE) mg/dL Urine Blood (NEGATIVE) Urine Nitrate (NEGATIVE) Urine Bilirubin (NEGATIVE) Urine Urobilinogen (<1 E.U./dL) E.U./dL Ur Leukocyte Esterase (NEGATIVE) Kait/uL Blood Type Blood Type Confirm Antibody Screen Crossmatch BBK History Checked Laboratory Results - last 24 hr 06/13/18 06/13/18 06/13/18 05:00 05:00 05:43 WBC RBC Hgb Hct MCV MCH MCHC RDW Plt Count MPV Gran % Lymph % (Auto) Darke % (Auto) Eos % (Auto) Baso % (Auto) Gran # Lymph # (Auto) Darke # (Auto) Eos # (Auto) Baso # (Auto) pCO2 43 pO2 332.0 H HCO3 25.4 ABG pH 7.38 ABG Total CO2 26.7 ABG O2 Saturation 99.8 H ABG Base Excess 0.2 ABG Hemoglobin 8.0 L ABG Carboxyhemoglobin 2.0 H POC ABG HHb (Measured) 0.2 ABG Methemoglobin 1.2 Hgb O2 Saturation 96.5 Sodium 140 Potassium 3.8 Chloride 107 Carbon Dioxide 25 Anion Gap 12 BUN 14 Creatinine 0.7 Est GFR ( Amer) > 60 Est GFR (Non-Af Amer) > 60 Random Glucose 97 Calcium 8.3 L Ferritin 14.2 Total Bilirubin 0.3 AST 23 ALT 32 Alkaline Phosphatase 60 Total Protein 6.3 Albumin 3.4 Globulin 3.0 Albumin/Globulin Ratio 1.1 Vitamin B12 510 Folate 15.7 Procalcitonin < 0.05 L Urine Color Urine Appearance Urine pH Ur Specific [place] Urine Protein Urine Glucose (UA) Urine Ketones Urine Blood Urine Nitrate Urine Bilirubin Urine Urobilinogen Ur Leukocyte Esterase Blood Type Blood Type Confirm Antibody Screen Crossmatch BBK History Checked 06/13/18 06/13/18 06/13/18 09:30 09:45 18:55 WBC 8.9 RBC 4.03 Hgb 11.2 L D Hct 34.9 L MCV 86.6 D MCH 27.8 MCHC 32.1 RDW 14.8 H Plt Count 239 MPV 12.1 H Gran % 70.4 H Lymph % (Auto) 12.0 L Darke % (Auto) 11.6 H Eos % (Auto) 5.1 H Baso % (Auto) 0.9 Gran # 6.26 Lymph # (Auto) 1.1 L Darke # (Auto) 1.0 H Eos # (Auto) 0.5 Baso # (Auto) 0.08 pCO2 pO2 HCO3 ABG pH ABG Total CO2 ABG O2 Saturation ABG Base Excess ABG Hemoglobin ABG Carboxyhemoglobin POC ABG HHb (Measured) ABG Methemoglobin Hgb O2 Saturation Sodium Potassium Chloride Carbon Dioxide Anion Gap BUN Creatinine Est GFR ( Amer) Est GFR (Non-Af Amer) Random Glucose Calcium Ferritin Total Bilirubin AST ALT Alkaline Phosphatase Total Protein Albumin Globulin Albumin/Globulin Ratio Vitamin B12 Folate Procalcitonin Urine Color Urine Appearance Urine pH Ur Specific [place] Urine Protein Urine Glucose (UA) Urine Ketones Urine Blood Urine Nitrate Urine Bilirubin Urine Urobilinogen Ur Leukocyte Esterase Blood Type A POSITIVE Blood Type Confirm A POSITIVE Antibody Screen Negative Crossmatch See Detail BBK History Checked No verified bt 06/13/18 06/14/18 06/14/18 22:50 05:45 05:45 WBC 7.8 RBC 4.17 Hgb 11.4 L Hct 35.7 L MCV 85.6 MCH 27.3 MCHC 31.9 RDW 15.1 H Plt Count 231 MPV 12.5 H Gran % 68.1 H Lymph % (Auto) 8.1 L Darke % (Auto) 15.7 H Eos % (Auto) 7.1 H Baso % (Auto) 1.0 Gran # 5.27 Lymph # (Auto) 0.6 L Darke # (Auto) 1.2 H Eos # (Auto) 0.6 Baso # (Auto) 0.08 pCO2 pO2 HCO3 ABG pH ABG Total CO2 ABG O2 Saturation ABG Base Excess ABG Hemoglobin ABG Carboxyhemoglobin POC ABG HHb (Measured) ABG Methemoglobin Hgb O2 Saturation Sodium 141 Potassium 4.0 Chloride 106 Carbon Dioxide 27 Anion Gap 13 BUN 14 Creatinine 0.7 Est GFR ( Amer) > 60 Est GFR (Non-Af Amer) > 60 Random Glucose 92 Calcium 8.9 Ferritin Total Bilirubin AST ALT Alkaline Phosphatase Total Protein Albumin Globulin Albumin/Globulin Ratio Vitamin B12 Folate Procalcitonin Urine Color Light yellow Urine Appearance Clear Urine pH 6.0 Ur Specific [place] 1.010 Urine Protein Negative Urine Glucose (UA) Negative Urine Ketones Negative Urine Blood Negative Urine Nitrate Negative Urine Bilirubin Negative Urine Urobilinogen 0.2 Ur Leukocyte Esterase Negative Blood Type Blood Type Confirm Antibody Screen Crossmatch BBK History Checked Review of Systems - Review of Systems All systems: reviewed and no additional remarkable complaints except (as per HPI ) Critical Care Progress Note - Nutrition Nutrition: Nutrition Category Date Time Status Heart Healthy Diet [DIET] Diets 06/13/18 Breakfast Active Assessment/Plan - Assessment and Plan (Free Text) Assessment: This is a 47 year old F w/ a PMH of HTN, mitral regurgitation, aortic insufficiency, atrial fibrillation anticoagulated w/ Xarelto (last dose 6 pm ), congenital rubella syndrome, developmental delay, deafness, autism, glaucoma, neurogenic bladder (wears adult diapers), anxiety presents to [facility] on 06/13 w/ CC of exertional dyspnea, cyanosis, and cough. Pt was evaluated at [facility] ED on 06/12. As per reports, bilateral lower extremity dopplar showed no evidence of DVT. Chest CTA showed no PE, right sided small pleural effusion. Pt's BNP was elevated at 400, and she received Lasix 40 mg IVP. Pt was transferred to [facility] and admitted to the floor for medical management. Cardiology consulted. Pt noted to have a Hgb of 7.8; baseline of 14 as per PMD. ICU was consulted for respiratory distress (tachypnea ) and hypotension (90/47). Pt received 2 units of pRBCs with adequate response; Hgb is now greater than 11 on two CBCs. Pt continues to have asymptomatic episodes of SVT (120s) on the monitor which last a few minutes and convert to NSR spontaneously. Pt is in no respiratory distress, and is maintained on ventimask at 5L. Plan: Neuro: - monitor for mental status changes - pt is nonverbal at baseline (autism and congenital rubella syndrome), but is able to answer questions via interpretor (patient care coordinator Bar) Cardio: - maintain MAP>65 mmHg - monitor vital signs - atenolol is on hold due to BP - continue Lopressor 25 mg PO BID as per Cardio - Echocardiogram (06/13) shows EF of 68%. Bicuspid aortic valve with moderate calcifications. Severe aortic regurgitations. Severe aortic valvular stenosis. Moderate MR. Mild to moderate TR and pulmonary hypertension. - pt's lower extremity edema has decreased due to lasix post blood transfusion, but continues to have rales on lung exam - f/u with cardio recs - f/u with [facility] cardiology records Pulm: - Chest CTA (06/12): No PE, small right plueral effusion. - maintain spo2>90% - O2 via ventimask prn - HoB>30 degrees GI: - ppx with ppi - HHD Renal: - maintain euvolemia - replete electrolytes as needed - pt has neurogenic bladder (incontinent) at baseline; has good urine output measured with purewick catheter Heme: - H/H is stable s/p transfusion of pRBCs x 2 units - maintain Hgb is greater than 9 - xarelto is on hold until transvaginal US results - continue ferrous gluconate - f/u transvaginal US ID: - no signs of infectious etiology - no leukocytosis, pt afebrile - Procalcitonin <0.05 Endo: - maintain euglycemia - TSH is normal per record from [facility] PPX: PPI for GI; vte ppx with SCDs (anticoagulation is on hold pending transvaginal US) Dispo: Pt is medically stable and safe for transfer to telemetry; Hospitalist is aware of transfer and agrees with management Case was reviewed and discussed with attending physician, Dr. Mccoy <John Mccoy - Last Filed: 06/14/18 10:35> CCU Objective - Vital Signs / Intake & Output Vital Signs (Last 4 hours): Vital Signs Pulse Resp BP Pulse Ox 06/14/18 10:01 127 H 41 H 113/77 92 L 06/14/18 10:00 128 H 31 H 93 L 06/14/18 09:45 126 H 117/63 06/14/18 09:43 128 H 39 H 117/63 92 L 06/14/18 09:17 127 H 20 94/63 L 91 L 06/14/18 09:15 124 H 91 L 06/14/18 08:00 77 26 H 92/30 L 91 L 06/14/18 07:02 71 25 H 107/50 L 91 L 06/14/18 07:00 68 23 85/53 L 91 L Intake and Output (Last 8hrs): Intake & Output 06/13/18 06/14/18 06/14/18 22:59 06:59 14:59 Intake Total 1170 300 Output Total 0 1400 Balance 1170 -1100 Weight 152 lb 152 lb Intake: Oral 480 300 Blood Product 650 Red Blood Cells Cpd As1 325 Lr Unit [id number] Red Blood Cells Cpd As1 325 Lr Unit [id number] Other 40 Red Blood Cells Cpd As1 20 Lr Unit [id number] Red Blood Cells Cpd As1 20 Lr Unit [id number] Output: Urine 0 1400 Condom 0 1400 Other: Voiding Method Incontinent # Bowel Movements 0 0 - Medications Active Medications: Active Medications Generic Name Dose Route Start Last Admin Trade Name Shu PRN Reason Stop Dose Admin Buspirone HCl 30 mg 06/13/18 10:00 06/14/18 09:49 Buspar PO 30 mg DAILY LURDES Administration Clonazepam 1 mg 06/13/18 10:00 06/13/18 11:00 Klonopin PO 1 mg DAILY LURDES Administration Protocol Dorzolamide HCl 0 ml 06/13/18 10:00 06/14/18 09:45 Trusopt OU 1 drop TID LURDES Administration Ferrous Gluconate 324 mg 06/13/18 10:00 06/14/18 09:49 Fergon PO 324 mg DAILY LURDES Administration Fluoxetine HCl 10 mg 06/13/18 10:00 06/14/18 09:42 Prozac PO 10 mg DAILY LURDES Administration Home Med 0 unit 06/13/18 18:00 06/14/18 09:42 Home Med OU 1 unit TID LURDES Administration Latanoprost 0 ml 06/13/18 22:00 06/13/18 21:53 Xalatan Opht OU 2.5 ml HS LURDES Administration Metoprolol Tartrate 25 mg 06/13/18 18:00 06/14/18 09:45 Lopressor PO 25 mg BID LURDES Administration Pantoprazole Sodium 40 mg 06/14/18 06:00 06/14/18 05:47 Protonix Ec Tab PO 40 mg 0600 LURDES Administration Pilocarpine HCl 0 ml 06/13/18 14:00 06/14/18 09:43 Isopto Carpine 1% Opht Soln OD 1 drop QID LURDES Administration Rivaroxaban 20 mg 06/13/18 10:00 06/13/18 10:12 Xarelto PO 20 mg DAILY LURDES Administration Protocol Trazodone HCl 100 mg 06/13/18 22:00 06/13/18 21:51 Desyrel PO 100 mg HS LURDES Administration - Patient Studies Lab Studies: Lab Studies 06/14/18 06/14/18 06/13/18 Range/Units 05:45 05:45 22:50 WBC 7.8 (4.5-11.0) 10^3/ul RBC 4.17 (3.5-6.1) 10^6/uL Hgb 11.4 L (12.0-16.0) g/dL Hct 35.7 L (36.0-48.0) % MCV 85.6 (80.0-105.0) fl MCH 27.3 (25.0-35.0) pg MCHC 31.9 (31.0-37.0) g/dl RDW 15.1 H (11.5-14.5) % Plt Count 231 (120.0-450.0) 10^3/uL MPV 12.5 H (7.0-11.0) fl Gran % 68.1 H (50.0-68.0) % Lymph % (Auto) 8.1 L (22.0-35.0) % Darke % (Auto) 15.7 H (1.0-6.0) % Eos % (Auto) 7.1 H (1.5-5.0) % Baso % (Auto) 1.0 (0.0-3.0) % Gran # 5.27 (1.4-6.5) Lymph # (Auto) 0.6 L (1.2-3.4) Darke # (Auto) 1.2 H (0.1-0.6) Eos # (Auto) 0.6 (0.0-0.7) Baso # (Auto) 0.08 (0.0-2.0) K/mm3 Sodium 141 (132-148) mmol/L Potassium 4.0 (3.6-5.0) mmol/L Chloride 106 (98-107) mmol/L Carbon Dioxide 27 (21-33) mmol/L Anion Gap 13 (10-20) BUN 14 (7-21) mg/dL Creatinine 0.7 (0.7-1.2) mg/dl Est GFR ( Amer) > 60 Est GFR (Non-Af Amer) > 60 Random Glucose 92 (70-110) mg/dL Calcium 8.9 (8.4-10.5) mg/dL Ferritin ng/mL Vitamin B12 (239-931) pg/mL Folate ng/mL Procalcitonin (0.19-0.49) NG/ML Urine Color Light yellow (YELLOW) Urine Appearance Clear (CLEAR) Urine pH 6.0 (4.7-8.0) Ur Specific [place] 1.010 (1.005-1.035) Urine Protein Negative (<30 mg/dL) mg/dL Urine Glucose (UA) Negative (NEGATIVE) mg/dL Urine Ketones Negative (NEGATIVE) mg/dL Urine Blood Negative (NEGATIVE) Urine Nitrate Negative (NEGATIVE) Urine Bilirubin Negative (NEGATIVE) Urine Urobilinogen 0.2 (<1 E.U./dL) E.U./dL Ur Leukocyte Esterase Negative (NEGATIVE) Kait/uL Blood Type Blood Type Confirm Antibody Screen Crossmatch BBK History Checked 06/13/18 06/13/18 06/13/18 Range/Units 18:55 09:45 09:30 WBC 8.9 (4.5-11.0) 10^3/ul RBC 4.03 (3.5-6.1) 10^6/uL Hgb 11.2 L D (12.0-16.0) g/dL Hct 34.9 L (36.0-48.0) % MCV 86.6 D (80.0-105.0) fl MCH 27.8 (25.0-35.0) pg MCHC 32.1 (31.0-37.0) g/dl RDW 14.8 H (11.5-14.5) % Plt Count 239 (120.0-450.0) 10^3/uL MPV 12.1 H (7.0-11.0) fl Gran % 70.4 H (50.0-68.0) % Lymph % (Auto) 12.0 L (22.0-35.0) % Darke % (Auto) 11.6 H (1.0-6.0) % Eos % (Auto) 5.1 H (1.5-5.0) % Baso % (Auto) 0.9 (0.0-3.0) % Gran # 6.26 (1.4-6.5) Lymph # (Auto) 1.1 L (1.2-3.4) Darke # (Auto) 1.0 H (0.1-0.6) Eos # (Auto) 0.5 (0.0-0.7) Baso # (Auto) 0.08 (0.0-2.0) K/mm3 Sodium (132-148) mmol/L Potassium (3.6-5.0) mmol/L Chloride (98-107) mmol/L Carbon Dioxide (21-33) mmol/L Anion Gap (10-20) BUN (7-21) mg/dL Creatinine (0.7-1.2) mg/dl Est GFR ( Amer) Est GFR (Non-Af Amer) Random Glucose (70-110) mg/dL Calcium (8.4-10.5) mg/dL Ferritin ng/mL Vitamin B12 (239-931) pg/mL Folate ng/mL Procalcitonin (0.19-0.49) NG/ML Urine Color (YELLOW) Urine Appearance (CLEAR) Urine pH (4.7-8.0) Ur Specific [place] (1.005-1.035) Urine Protein (<30 mg/dL) mg/dL Urine Glucose (UA) (NEGATIVE) mg/dL Urine Ketones (NEGATIVE) mg/dL Urine Blood (NEGATIVE) Urine Nitrate (NEGATIVE) Urine Bilirubin (NEGATIVE) Urine Urobilinogen (<1 E.U./dL) E.U./dL Ur Leukocyte Esterase (NEGATIVE) Kait/uL Blood Type A POSITIVE Blood Type Confirm A POSITIVE Antibody Screen Negative Crossmatch See Detail BBK History Checked No verified bt 06/13/18 06/13/18 Range/Units 05:00 05:00 WBC (4.5-11.0) 10^3/ul RBC (3.5-6.1) 10^6/uL Hgb (12.0-16.0) g/dL Hct (36.0-48.0) % MCV (80.0-105.0) fl MCH (25.0-35.0) pg MCHC (31.0-37.0) g/dl RDW (11.5-14.5) % Plt Count (120.0-450.0) 10^3/uL MPV (7.0-11.0) fl Gran % (50.0-68.0) % Lymph % (Auto) (22.0-35.0) % Darke % (Auto) (1.0-6.0) % Eos % (Auto) (1.5-5.0) % Baso % (Auto) (0.0-3.0) % Gran # (1.4-6.5) Lymph # (Auto) (1.2-3.4) Darke # (Auto) (0.1-0.6) Eos # (Auto) (0.0-0.7) Baso # (Auto) (0.0-2.0) K/mm3 Sodium (132-148) mmol/L Potassium (3.6-5.0) mmol/L Chloride (98-107) mmol/L Carbon Dioxide (21-33) mmol/L Anion Gap (10-20) BUN (7-21) mg/dL Creatinine (0.7-1.2) mg/dl Est GFR ( Amer) Est GFR (Non-Af Amer) Random Glucose (70-110) mg/dL Calcium (8.4-10.5) mg/dL Ferritin 14.2 ng/mL Vitamin B12 510 (239-931) pg/mL Folate 15.7 ng/mL Procalcitonin < 0.05 L (0.19-0.49) NG/ML Urine Color (YELLOW) Urine Appearance (CLEAR) Urine pH (4.7-8.0) Ur Specific [place] (1.005-1.035) Urine Protein (<30 mg/dL) mg/dL Urine Glucose (UA) (NEGATIVE) mg/dL Urine Ketones (NEGATIVE) mg/dL Urine Blood (NEGATIVE) Urine Nitrate (NEGATIVE) Urine Bilirubin (NEGATIVE) Urine Urobilinogen (<1 E.U./dL) E.U./dL Ur Leukocyte Esterase (NEGATIVE) Kait/uL Blood Type Blood Type Confirm Antibody Screen Crossmatch BBK History Checked Laboratory Results - last 24 hr 06/13/18 06/13/18 06/13/18 05:00 05:00 09:30 WBC RBC Hgb Hct MCV MCH MCHC RDW Plt Count MPV Gran % Lymph % (Auto) Darke % (Auto) Eos % (Auto) Baso % (Auto) Gran # Lymph # (Auto) Darke # (Auto) Eos # (Auto) Baso # (Auto) Sodium Potassium Chloride Carbon Dioxide Anion Gap BUN Creatinine Est GFR ( Amer) Est GFR (Non-Af Amer) Random Glucose Calcium Ferritin 14.2 Vitamin B12 510 Folate 15.7 Procalcitonin < 0.05 L Urine Color Urine Appearance Urine pH Ur Specific [place] Urine Protein Urine Glucose (UA) Urine Ketones Urine Blood Urine Nitrate Urine Bilirubin Urine Urobilinogen Ur Leukocyte Esterase Blood Type A POSITIVE Blood Type Confirm Antibody Screen Negative Crossmatch See Detail BBK History Checked No verified bt 06/13/18 06/13/18 06/13/18 09:45 18:55 22:50 WBC 8.9 RBC 4.03 Hgb 11.2 L D Hct 34.9 L MCV 86.6 D MCH 27.8 MCHC 32.1 RDW 14.8 H Plt Count 239 MPV 12.1 H Gran % 70.4 H Lymph % (Auto) 12.0 L Darke % (Auto) 11.6 H Eos % (Auto) 5.1 H Baso % (Auto) 0.9 Gran # 6.26 Lymph # (Auto) 1.1 L Darke # (Auto) 1.0 H Eos # (Auto) 0.5 Baso # (Auto) 0.08 Sodium Potassium Chloride Carbon Dioxide Anion Gap BUN Creatinine Est GFR ( Amer) Est GFR (Non-Af Amer) Random Glucose Calcium Ferritin Vitamin B12 Folate Procalcitonin Urine Color Light yellow Urine Appearance Clear Urine pH 6.0 Ur Specific [place] 1.010 Urine Protein Negative Urine Glucose (UA) Negative Urine Ketones Negative Urine Blood Negative Urine Nitrate Negative Urine Bilirubin Negative Urine Urobilinogen 0.2 Ur Leukocyte Esterase Negative Blood Type Blood Type Confirm A POSITIVE Antibody Screen Crossmatch BBK History Checked 06/14/18 06/14/18 05:45 05:45 WBC 7.8 RBC 4.17 Hgb 11.4 L Hct 35.7 L MCV 85.6 MCH 27.3 MCHC 31.9 RDW 15.1 H Plt Count 231 MPV 12.5 H Gran % 68.1 H Lymph % (Auto) 8.1 L Darke % (Auto) 15.7 H Eos % (Auto) 7.1 H Baso % (Auto) 1.0 Gran # 5.27 Lymph # (Auto) 0.6 L Darke # (Auto) 1.2 H Eos # (Auto) 0.6 Baso # (Auto) 0.08 Sodium 141 Potassium 4.0 Chloride 106 Carbon Dioxide 27 Anion Gap 13 BUN 14 Creatinine 0.7 Est GFR ( Amer) > 60 Est GFR (Non-Af Amer) > 60 Random Glucose 92 Calcium 8.9 Ferritin Vitamin B12 Folate Procalcitonin Urine Color Urine Appearance Urine pH Ur Specific [place] Urine Protein Urine Glucose (UA) Urine Ketones Urine Blood Urine Nitrate Urine Bilirubin Urine Urobilinogen Ur Leukocyte Esterase Blood Type Blood Type Confirm Antibody Screen Crossmatch BBK History Checked Critical Care Progress Note - Nutrition Nutrition: Nutrition Category Date Time Status Heart Healthy Diet [DIET] Diets 06/13/18 Breakfast Active Assessment/Plan - Assessment and Plan (Free Text) Plan: Patient seen and examined on rounds with resident, agree with note with following additions/exceptions: Patient is 47yo female w/PMH of developmental delay, deafness, autism, congenital rubella syndrome, HTN, glaucoma, mitral regurgitation, aortic insufficiency, atrial fibrillation on Xarelto, neurogenic bladder, anxiety presents to [facility] on 06/13 c/o exertional dyspnea, cyanosis, and coughP patient found to be anemic, baseline HH ~14. Patient went to [facility] ER where she had negative DVT/PE study, noted to have pleural effusion. Currently the patient is afebrile, BP stable, O2 sat 92% on room air. Pt given 2u PRBC yesterday, with appropriate HH response. Had pelvic U/S done, results pending. Anemia SOB Afib Developmental delay/Autism HTN MR Recommend: - supp o2 as needed, goal sat>90% - NO ID issues - BP control - lopressor 25mg BID - cardiology follow up - monitor HH - check Iron studies, FOBT, VitB12 levels - Research Clerk consult - GI ppx - transfer to telemetry
--- NOTE | 2018-06-14 07:56 | CP.PCM.PN ---
Addendum entered and electronically signed by Graeme Vivas DO 06/14/18 13:33: Update on Management: director of primary consulted- spoke with Dr. Walker and reviewed the patient's case thus far. Advised that no acute WIRE STITCHER OPERATOR intervention is required at this time. Instructed to have the patient follow up with her private OBGYN or his office in the outpatient setting. Original Note: <Graeme Vivas - Last Filed: 06/14/18 11:45> Subjective - Date & Time of Evaluation Date of Evaluation: 06/14/18 Time of Evaluation: 09:00 - Subjective Subjective: Subjective: Patient seen and examined at bedside. Resting comfortably in bed. No acute overnight events. Further subjective data cannot be gathered at this time due to communication barrier as ham stripper is not at beside. 12-point review of systems cannot be ascertained at this time due to communication barrier Physical Examination: - Constitutional Appears: Non-toxic - Head Exam Head Exam: ATRAUMATIC, NORMOCEPHALIC - Eye Exam Additional comments: Clouded; Cataracts BL - ENT Exam Additional comments: Poor dentation - Neck Exam Neck exam: Positive for: Normal Inspection - Respiratory Exam Respiratory Exam: no accessory muscle use absent: Wheezes - Cardiovascular Exam Cardiovascular Exam: +S1, +S2, tachycardic, + systolic murmur 2nd ICS Right, 2nd ICS left, and left inferior sternal border - GI/Abdominal Exam GI & Abdominal Exam: Normal Bowel Sounds, Soft. absent: Tenderness - Extremities Exam Extremities exam: Positive for: trace edema bilateral lower extremities - Skin Skin Exam: Dry, Intact, Warm Assessment and Plan: Patient is a 47 year old female with a PMHx of significant for developmental delay, deafness, autism, congenital rubella syndrome, glaucoma, mitral regurgitation, aortic insufficiency, and atrial fibrillation anticoagulated w/ xarleto who was admitted for evaluation and treatment of exertional dyspnea, cyanosis, and cough. It is important to note the patient went to [facility] where she underwent a LLE u/s and CT chest angio which ruled out a DVT and PE. In ED patient was noted to be hypotensive 80s/50s HR in 80s with some runs of sinus tachycardia in the 115s. Patient was admitted to the ICU for further management. Exertional Dyspnea - likely secondary to diastolic congestive heart failure vs chronic atrial fibrillation with intermittent SVTs - maintain O2 Sat >95% on nonrebreather - Procal low- no need for abx - ABG- pH WNL, carboxyhemoglobin elevated 2.0 - Echocardiogram reviewed and appreciated- LVEF 68%, aortic valve bicuspid, severe aortic regurg, severe valvular aortic stenosis, MR moderate - Cardiology consulted- recommendations appreciated- started patient on Lopressor 25 mg BID - Call placed to patient's information officer Dr. East, information consent form faxed to his office, spoke with office staff, informed that information will be sent, awaiting requested information Normocytic Anemia - Hgb reviewed, trended, appreciated- 11.4 from 7.6 s/p 2units - Anemia appears to be chronic given patient is on Fe supplement; however unable to establish baseline Hb at this time - Iron, TIBC, B12, Folate- iron is low at 21, % saturation is low - transvaginal ultrasound could not be completed due to patient noncompliance, pelvic ultrasound official read pending to find source of bleed Deconditioning - physical therapy consulted awaiting recommendations Hx Atrial Fibrillation - hold home Xarleto 1mg QD due to possible GI bleed - started patient on Lopressor as per cardiology - cardiology consulted- appreciate recommendations Hx Psychiatric Disorder/ Developmental Delay - Buspirone 1mg QD - clonazepam 1mg QD - prozac 1mg QD - Trazadone 1 tab HS Prophylaxis - PPI- Protonix - DVT- hold Xarelto as above Patient seen, case discussed with, and plan approved by attending physician, Dr. Vail. Objective - Vital Signs/Intake and Output Vital Signs (last 24 hours): Temp Pulse Resp BP Pulse Ox 97.8 F 80 28 H 99/53 L 91 L 06/14/18 04:00 06/14/18 06:00 06/13/18 21:00 06/13/18 21:00 06/13/18 21:00 Intake and Output: 06/14/18 06/14/18 06:59 18:59 Intake Total 300 Output Total 1400 Balance -1100 - Medications Medications: Current Medications Buspirone HCl (Buspar) 30 mg PO DAILY [facility] Last Admin: 06/13/18 10:13 Dose: 30 mg Clonazepam (Klonopin) 1 mg PO DAILY [facility] PRN Reason: Protocol Last Admin: 06/13/18 11:00 Dose: 1 mg Dorzolamide HCl (Trusopt) 0 ml OU TID [facility] Last Admin: 06/13/18 17:44 Dose: 1 drop Ferrous Gluconate (Fergon) 324 mg PO DAILY [facility] Last Admin: 06/13/18 10:12 Dose: 324 mg Fluoxetine HCl (Prozac) 10 mg PO DAILY [facility] Last Admin: 06/13/18 10:12 Dose: 10 mg Home Med (Home Med) 0 unit OU TID [facility] Last Admin: 06/13/18 17:44 Dose: 1 unit Latanoprost (Xalatan Opht) 0 ml OU HS [facility] Last Admin: 06/13/18 21:53 Dose: 2.5 ml Metoprolol Tartrate (Lopressor) 25 mg PO BID [facility] Last Admin: 06/13/18 17:32 Dose: Not Given Pantoprazole Sodium (Protonix Ec Tab) 40 mg PO 0600 [facility] Last Admin: 06/14/18 05:47 Dose: 40 mg Pilocarpine HCl (Isopto Carpine 1% Opht Soln) 0 ml OD QID [facility] Last Admin: 06/13/18 21:51 Dose: 1 drop Rivaroxaban (Xarelto) 20 mg PO DAILY [facility] PRN Reason: Protocol Last Admin: 06/13/18 10:12 Dose: 20 mg Trazodone HCl (Desyrel) 100 mg PO HS [facility] Last Admin: 06/13/18 21:51 Dose: 100 mg - Labs Labs: 06/14/18 05:45 06/14/18 05:45 PT 19.5 SECONDS (9.4-12.5) H 06/13/18 01:25 INR 1.69 (0.93-1.08) H 06/13/18 01:25 APTT 35.8 Seconds (25.1-36.5) 06/13/18 01:25 <Rangasamy,Ajantha - Last Filed: 06/16/18 14:10> Objective - Vital Signs/Intake and Output Vital Signs (last 24 hours): Temp Pulse Resp BP Pulse Ox 98.1 F 68 18 136/97 H 100 06/16/18 04:00 06/16/18 12:00 06/16/18 12:00 06/16/18 12:00 06/16/18 04:00 Intake and Output: 06/16/18 06/16/18 06:59 18:59 Intake Total 180 Balance 180 - Medications Medications: Current Medications Buspirone HCl (Buspar) 30 mg PO DAILY [facility] Last Admin: 06/15/18 09:40 Dose: 30 mg Clonazepam (Klonopin) 1 mg PO BID [facility] PRN Reason: Protocol Docusate Sodium (Colace Liquid) 100 mg PO TID [facility] Last Admin: 06/16/18 12:29 Dose: Not Given Dorzolamide HCl (Trusopt) 0 ml OU TID [facility] Last Admin: 06/16/18 10:10 Dose: 1 drop Ferrous Gluconate (Fergon) 324 mg PO DAILY [facility] Last Admin: 06/16/18 10:08 Dose: 324 mg Fluoxetine HCl (Prozac) 10 mg PO DAILY [facility] Last Admin: 06/16/18 13:22 Dose: Not Given Home Med (Home Med) 0 unit OU TID [facility] Last Admin: 06/16/18 10:09 Dose: 1 unit Latanoprost (Xalatan Opht) 0 ml OU HS [facility] Last Admin: 06/16/18 00:20 Dose: 2.5 ml Lorazepam (Ativan) 1 mg IVP Q6H PRN; Protocol PRN Reason: Anxiety Metoprolol Tartrate (Lopressor) 25 mg PO BID [facility] Last Admin: 06/16/18 13:22 Dose: Not Given Metoprolol Tartrate (Lopressor) 5 mg IVP Q6 PRN PRN Reason: Systolic Blood Pressure Pantoprazole Sodium (Protonix Ec Tab) 40 mg PO 0600 [facility] Last Admin: 06/16/18 06:43 Dose: 40 mg Pilocarpine HCl (Isopto Carpine 1% Opht Soln) 0 ml OD QID [facility] Last Admin: 06/16/18 10:09 Dose: 1 drop Polyethylene Glycol (Miralax) 17 gm PO DAILY [facility] Last Admin: 06/16/18 13:22 Dose: Not Given Rivaroxaban (Xarelto) 20 mg PO DAILY [facility] PRN Reason: Protocol Last Admin: 06/16/18 13:22 Dose: Not Given Trazodone HCl (Desyrel) 100 mg PO HS [facility] Last Admin: 06/16/18 00:19 Dose: Not Given - Labs Labs: 06/16/18 06:30 06/16/18 06:30 PT 19.5 SECONDS (9.4-12.5) H 06/13/18 01:25 INR 1.69 (0.93-1.08) H 06/13/18 01:25 APTT 35.8 Seconds (25.1-36.5) 06/13/18 01:25 Attending/Attestation - Attestation I have personally seen and examined this patient.: Yes I have fully participated in the care of the patient.: Yes I have reviewed all pertinent clinical information, including history, physical exam and plan: Yes Notes (Text): 06/16/18 14:02 Attending note; Patient seen and examined with resident in ICU. Patient is alert and awake. On oxygen nasal cannula. Not in any acute distress. tolerating diet well. No nausea or vomiting. Patient is a 47 year old female with a PMHx significant for developmental delay , deafness, autism, congenital rubella syndrome, glaucoma, mitral regurgitation , as,aortic insufficiency, and atrial fibrillation anticoagulated w/ xarleto who was admitted for evaluation and treatment of exertional dyspnea, cyanosis, and cough. The patient was initially seen by [facility]. Doppler LE is negative for DVT on US and CT chest angio showed no PE, did show R sided small pleural effusion; BNP elevated, and subsequently administered lasix. The patient was then transferred to [facility]. Monitored on the second floor. Then transferred to ICU for close monitoring. The patient was hypotensive initially with 80/50. Baseline blood pressure is 90/ 60. Patient was tachycardic. Hemoglobin was found to be 7.9. No active bleeding noted. Status post 2 unit PRBC transfusion. Currently tachycardia resolved. Hypotension is resolving. Not in any acute distress. Cardiology evaluation appreciated. Message left with patient's primary information officer. Awaiting for fax report. Dyspnea is resolving; mostly secondary to anemia. Patient's previous hemoglobin was 14 in January 2018. Currently hemoglobin is 11.2. pelvic ultrasound showed no significant abnormality even though it is limited. Reviewed with WIRE STITCHER OPERATOR in detail. Patient needs close outpatient follow-up with primary WIRE STITCHER OPERATOR. Congenital rubella syndrome with viri disorder; continue home medications including clonazepam, BuSpirone,prozac,and trazadone. 1;1 sitter at the bedside for assistance at times. Case discussed with PMD in detail by the resident. Monitor patient closely in ICU. Case discussed with case management coordinator/socially responsible investment adviser in detail.
[2018-06-14] MEDS: ALPHAGAN P 0.1% OU SCH ×3 (09:42→17:37)
[2018-06-14] MEDS: Pilocarpine 1% Opht (15ml) OD SCH ×3 (09:43→17:37)
[2018-06-14] MEDS: Dorzolamide 2% Opht Sol 10ml OU SCH ×3 (09:45→17:36)
--- NOTE | 2018-06-14 12:25 | US ---
Date of service: 06/14/2018 HISTORY: bleeding COMPARISON: None available. TECHNIQUE: Transabdominal only. Attempt at transvaginal evaluation was unsuccessful due to the patient's inability to cooperate for the examination. The transabdominal examination was performed with the patient sitting. FINDINGS: UTERUS: Measures 7.0 x 3.7 x 5.2 cm. Normal in size and appearance. No fibroid or other mass lesion seen. ENDOMETRIUM: Measures 8 mm in diameter. Trace endometrial fluid noted. CERVIX: No cervical abnormality identified. RIGHT OVARY: Not visualized LEFT OVARY: Not visualize FREE FLUID: No significant free fluid noted. OTHER FINDINGS: None. IMPRESSION: Limited examination. Trace endometrial fluid. Ovaries not visualized. Unable to perform transvaginal examination.
[2018-06-14] MEDS ORDERED: Barium Sulfate Susp 2.1% w/v, 2.0% w/w 450 mL Bottle PO ONE (13:02)
--- NOTE | 2018-06-14 17:26 | CT ---
Date of service: 06/14/2018 PROCEDURE: CT Abdomen and Pelvis without intravenous contrast HISTORY: symptomatic anemia COMPARISON: None. TECHNIQUE: Unenhanced study. Neither oral nor intravenous contrast administered. Sensitivity and specificity for acute inflammatory processes limited by the absence of oral and intravenous contrast. The value of this study in the assessment of symptomatic anemia is also limited. Radiation dose: Total exam DLP = 923.65 mGy-cm. This CT exam was performed using one or more of the following dose reduction techniques: Automated exposure control, adjustment of the mA and/or kV according to patient size, and/or use of iterative reconstruction technique. FINDINGS: LOWER THORAX: Trace right pleural effusion the similar finding identified on recent CT of the thorax 06/12/2018. LIVER: Unremarkable. No gross lesion or ductal dilatation. GALLBLADDER AND BILE DUCTS: Unremarkable. PANCREAS: Unremarkable. No gross lesion or ductal dilatation. SPLEEN: Unremarkable. ADRENALS: Unremarkable. No mass. KIDNEYS AND URETERS: Unremarkable. No hydronephrosis. No solid mass. Incidental finding(s): Nonobstructing calculi in the upper and lower poles. The largest measures 13 mm. VASCULATURE: Unremarkable. No aortic aneurysm. BOWEL: Constipation/fecal impaction without obstructing lesion APPENDIX: Unremarkable. Normal appendix. PERITONEUM: Unremarkable. No free fluid. No free air. LYMPH NODES: Unremarkable. No enlarged lymph nodes. BLADDER: Unremarkable. REPRODUCTIVE: Unremarkable. BONES: No acute fracture. OTHER FINDINGS: None. IMPRESSION: No acute findings related to/accounting for the clinical presentation. Additional benign and/or incidental findings described above. Limitations of the current examination: Absence of oral and intravenous contrast in the setting of symptomatic anemia.
[2018-06-14] MEDS: Latanoprost 2.5 ml Opht Soln OU SCH (21:49)
--- NOTE | 2018-06-14 22:34 | PN ---
DATE: 06/14/[address] Yuriy Rg. SUBJECTIVE: Patient does not appear to be in any respiratory distress. She is on nasal O2. PHYSICAL EXAMINATION: GENERAL: Patient is a middle-aged female who does not appear to be in acute distress. VITAL SIGNS: Blood pressure 95/64, heart rate 74, temperature 97.5, respirations 31. HEENT: Slight pallor. NECK: No JVD. CHEST: Bibasilar coarse crepitations. HEART: S1 and S2, regular. EXTREMITIES: 1+ pitting edema. Abdomen and pelvis CT scan revealed no acute findings. EKG revealed sinus rhythm with first degree AV block, left axis deviation, left ventricular hypertrophy, cannot rule out septal infarct. Echocardiographic study revealed a bicuspid and moderate calcified aortic valve with sever aortic insufficiency and severe aortic stenosis, [id number] pulmonary hypertension, normal ejection fraction. LABORATORY DATA: Today's SMA-7 is entirely within normal limit. Today's hemoglobin and hematocrit 11.4 and 35.7, white count and platelet count are within normal limits. ASSESSMENT: 1. Bicuspid aortic valve with severe aortic stenosis and aortic insufficiency. 2. Anemia. 3. History of atrial fibrillation, the patient converted to sinus rhythm while in intensive care unit. RECOMMENDATIONS: Continue current Lopressor 25 mg twice a day, Xarelto 20 mg once a day. Obtain a portable chest x-ray. Bin Gallagher MD
[2018-06-15 05:37] LABS: BASO # 0.05 K/mm3 (0.0-2.0); BASO % 0.7 % (0.0-3.0); EOS # 0.5 (0.0-0.7); EOS % 6.5 % (1.5-5.0); GRAN # 5.33 (1.4-6.5); GRAN % 71.9 % (50.0-68.0); HEMOGLOBIN 10.9 g/dL (12.0-16.0); LYMPH # 0.7 (1.2-3.4); LYMPH % 9.7 % (22.0-35.0); MEAN CELL VOLUME 87.1 fl (80.0-105.0); MEAN CORPUSCULAR HEMOGLOBIN 27.1 pg (25.0-35.0); MEAN CORPUSCULAR HGB CONC 31.1 g/dl (31.0-37.0); MEAN PLATELET VOLUME 11.8 fl (7.0-11.0); MONO # 0.8 (0.1-0.6); MONO % 11.2 % (1.0-6.0); RBC 4.02 10^6/uL (3.5-6.1); RED CELL DISTRIBUTION WIDTH 14.9 % (11.5-14.5); WHITE BLOOD COUNT 7.4 10^3/ul (4.5-11.0)
[2018-06-15 06:40] LABS: BLOOD UREA NITROGEN 11 mg/dL (7-21); CALCIUM 8.6 mg/dL (8.4-10.5); GFR AFRICAN-AMERICAN > 60; GFR NON-AFRICAN AMERICAN > 60
[2018-06-15] MEDS: Pantoprazole 40 mg EC Tab PO SCH (07:26)
[2018-06-15] MEDS: Dorzolamide 2% Opht Sol 10ml OU SCH ×3 (09:46→18:46)
[2018-06-15] MEDS: POLYETHYLENE GLYCOL 3350 17 GM/Dose PACKET PO SCH (09:50)
[2018-06-15] MEDS: ALPHAGAN P 0.1% OU SCH ×3 (10:05→18:45)
[2018-06-15] MEDS: Pilocarpine 1% Opht (15ml) OD SCH ×3 (10:17→18:46)
--- NOTE | 2018-06-15 10:21 | RAD ---
Date of service: 06/15/2018 HISTORY: follow up pleural effusion COMPARISON: Outside CT 06/12/2018 FINDINGS: LUNGS: No active pulmonary disease. PLEURA: No significant effusion CARDIOVASCULAR: Mild vascular congestion. OSSEOUS STRUCTURES: There is a pectus deformity. Mild scoliosis convex to the left VISUALIZED UPPER ABDOMEN: Normal. OTHER FINDINGS: None. IMPRESSION: Mild vascular congestion
--- NOTE | 2018-06-15 11:58 | PN ---
DATE: 06/15/2018 FOLLOWUP SUBJECTIVE: The patient is comfortable in bed this morning. She ate her breakfast and had her medications. No record of ventricular arrhythmia. PHYSICAL EXAMINATION: VITAL SIGNS: Blood pressure 97/63, heart rate 77, respirations 28, temperature 98 degrees Fahrenheit. HEENT: Mild pallor. NECK: No JVD. CHEST: Minimal basal rhonchi. HEART: S1 and S2 regular. Grade IV/ ejection systolic murmur over left sternal border. EXTREMITIES: Trace leg edema. LABORATORY DATA: Hemoglobin and hematocrit 10.9 and 35. White count and platelet count are within normal limit. Today's SMA-7 is entirely within normal limit. Chest x-ray revealed mild vascular congestion. ASSESSMENT: 1. Improved congestive heart failure. 2. Severe aortic stenosis and aortic insufficiency with possibly calcific bicuspid aortic valve. 3. Anemia. 4. Paroxysmal atrial fibrillation. RECOMMENDATIONS: Continue current Lopressor 25 mg twice a day, Prozac 10 mg once a day, Xarelto 20 mg once a day. The plan is to transfer the patient to telemetry prior to going to subacute rehab. Bin Gallagher MD
--- NOTE | 2018-06-15 13:37 | CP.PCM.PN ---
<Ascencion Mcginnis - Last Filed: 06/15/18 15:40> Subjective - Date & Time of Evaluation Date of Evaluation: 06/15/18 Time of Evaluation: 13:36 - Subjective Subjective: Ascencion Mcginnis D.O PGY-1, Internal Medicine progress note for Patient seen and examined at bedside. Resting comfortably in bed, no acute overnight events. Patient downgraded to telemetry floor from the ICU. Further subjective data cannot be gathered at this time due to communication barrier as orderlies teacher is not at beside. Objective - Vital Signs/Intake and Output Vital Signs (last 24 hours): Temp Pulse Resp BP Pulse Ox 98 F 118 H 28 H 128/67 94 L 06/15/18 04:00 06/15/18 12:00 06/15/18 12:00 06/15/18 12:00 06/15/18 12:00 Intake and Output: 06/15/18 06/15/18 06:59 18:59 Intake Total 720 Output Total 400 Balance 320 - Medications Medications: Current Medications Buspirone HCl (Buspar) 30 mg PO DAILY [facility] Last Admin: 06/15/18 09:40 Dose: 30 mg Clonazepam (Klonopin) 1 mg PO DAILY [facility] PRN Reason: Protocol Last Admin: 06/15/18 09:43 Dose: 1 mg Docusate Sodium (Colace Liquid) 100 mg PO TID [facility] Last Admin: 06/15/18 09:40 Dose: 100 mg Dorzolamide HCl (Trusopt) 0 ml OU TID [facility] Last Admin: 06/15/18 09:46 Dose: 1 drop Ferrous Gluconate (Fergon) 324 mg PO DAILY [facility] Last Admin: 06/15/18 09:43 Dose: 324 mg Fluoxetine HCl (Prozac) 10 mg PO DAILY [facility] Last Admin: 06/15/18 09:54 Dose: 10 mg Home Med (Home Med) 0 unit OU TID [facility] Last Admin: 06/15/18 10:05 Dose: 1 unit Latanoprost (Xalatan Opht) 0 ml OU HS [facility] Last Admin: 06/14/18 21:49 Dose: 2.5 ml Metoprolol Tartrate (Lopressor) 25 mg PO BID [facility] Last Admin: 06/15/18 09:50 Dose: 25 mg Pantoprazole Sodium (Protonix Ec Tab) 40 mg PO 0600 [facility] Last Admin: 06/15/18 07:26 Dose: 40 mg Pilocarpine HCl (Isopto Carpine 1% Opht Soln) 0 ml OD QID [facility] Last Admin: 06/15/18 10:17 Dose: 1 drop Polyethylene Glycol (Miralax) 17 gm PO DAILY [facility] Last Admin: 06/15/18 09:50 Dose: 17 gm Rivaroxaban (Xarelto) 20 mg PO DAILY [facility] PRN Reason: Protocol Last Admin: 06/15/18 09:43 Dose: 20 mg Trazodone HCl (Desyrel) 100 mg PO HS [facility] Last Admin: 06/14/18 21:48 Dose: 100 mg - Labs Labs: 06/15/18 04:45 06/15/18 04:45 PT 19.5 SECONDS (9.4-12.5) H 06/13/18 01:25 INR 1.69 (0.93-1.08) H 06/13/18 01:25 APTT 35.8 Seconds (25.1-36.5) 06/13/18 01:25 - Constitutional Appears: No Acute Distress - Head Exam Head Exam: ATRAUMATIC, NORMAL INSPECTION - Eye Exam Eye Exam: absent: Normal appearance Additional comments: Cataracts on bilateral eyes - ENT Exam ENT Exam: Mucous Membranes Moist Additional comments: Poor dentation - Respiratory Exam Respiratory Exam: Clear to Ausculation Bilateral. absent: Rales, Rhonchi, Wheezes - Cardiovascular Exam Cardiovascular Exam: Tachycardia, +S1, +S2, Murmur Additional comments: systolic murmur heard 2nd left, 2nd right intercostal spaces, and left inferior sternal border - GI/Abdominal Exam GI & Abdominal Exam: Soft, Normal Bowel Sounds. absent: Tenderness - Extremities Exam Extremities Exam: absent: Calf Tenderness Additional comments: trace edema bilateral lower extremities - Neurological Exam Neurological Exam: Alert, Awake - Psychiatric Exam Psychiatric exam: Normal Affect, Normal Mood - Skin Skin Exam: Dry, Normal Color, Warm Assessment and Plan - Assessment and Plan (Free Text) Assessment: Ms. Wong is a 47 year old female with a PMHx of significant for developmental delay, deafness, autism, congenital rubella syndrome, glaucoma, mitral regurgitation, aortic insufficiency, and atrial fibrillation anticoagulated w/ xarleto who was admitted for evaluation and treatment of exertional dyspnea, cyanosis, and cough. It is important to note the patient went to [facility] where she underwent a LLE u/s and CT chest angio which ruled out a DVT and PE. In ED patient was noted to be hypotensive 80s/50s HR in 80s with some runs of sinus tachycardia in the 115s. Plan: Exertional Dyspnea - likely secondary to diastolic congestive heart failure vs chronic atrial fibrillation with intermittent SVTs - maintain O2 Sat >95% on nonrebreather - ABG (06/13): pH WNL - Echocardiogram (06/13) reviewed and appreciated- LVEF 68%, aortic valve bicuspid, severe aortic regurg, severe valvular aortic stenosis, MR moderate - Call placed to patient's roller leveler Dr. East, information consent form faxed to his office, spoke with office staff, informed that information will be sent, awaiting requested information Hx Atrial Fibrillation - Continue home Xarleto 1mg QD - FOBT negative - c/w Lopressor 25mg PO BID as per cardiology - cardiology consulted Normocytic Anemia, resolved - Hgb reviewed, trended, appreciated- 11.4 from 7.6 s/p 2units - Anemia appears to be chronic given patient is on Fe supplement; however unable to establish baseline Hb at this time - Iron, TIBC, B12, Folate- iron is low at 21, % saturation is low - Transvaginal ultrasound not done due to patient getting agitated - Pelvic ultrasound (06/13): trace endometrial fluid Constipation - Pelvic ultrasound showed constipation - started colace and miralax Deconditioning - physical therapy consulted awaiting recommendations Hx Psychiatric Disorder/ Developmental Delay - Buspirone 1mg QD - clonazepam 1mg QD - prozac 1mg QD - Trazadone 1 tab HS Prophylaxis - PPI- Protonix - DVT- Xarelto Patient seen, case discussed with, and plan approved by attending physician, Dr. Vail. <Mima Vail - Last Filed: 06/16/18 14:14> Objective - Vital Signs/Intake and Output Vital Signs (last 24 hours): Temp Pulse Resp BP Pulse Ox 98.1 F 68 18 136/97 H 100 06/16/18 04:00 06/16/18 12:00 06/16/18 12:00 06/16/18 12:00 06/16/18 04:00 Intake and Output: 06/16/18 06/16/18 06:59 18:59 Intake Total 180 Balance 180 - Medications Medications: Current Medications Buspirone HCl (Buspar) 30 mg PO DAILY [facility] Last Admin: 06/15/18 09:40 Dose: 30 mg Clonazepam (Klonopin) 1 mg PO BID [facility] PRN Reason: Protocol Docusate Sodium (Colace Liquid) 100 mg PO TID [facility] Last Admin: 06/16/18 12:29 Dose: Not Given Dorzolamide HCl (Trusopt) 0 ml OU TID [facility] Last Admin: 06/16/18 10:10 Dose: 1 drop Ferrous Gluconate (Fergon) 324 mg PO DAILY [facility] Last Admin: 06/16/18 10:08 Dose: 324 mg Fluoxetine HCl (Prozac) 10 mg PO DAILY [facility] Last Admin: 06/16/18 13:22 Dose: Not Given Home Med (Home Med) 0 unit OU TID [facility] Last Admin: 06/16/18 10:09 Dose: 1 unit Latanoprost (Xalatan Opht) 0 ml OU [facility] Last Admin: 06/16/18 00:20 Dose: 2.5 ml Lorazepam (Ativan) 1 mg IVP Q6H PRN; Protocol PRN Reason: Anxiety Metoprolol Tartrate (Lopressor) 25 mg PO BID [facility] Last Admin: 06/16/18 13:22 Dose: Not Given Metoprolol Tartrate (Lopressor) 5 mg IVP Q6 PRN PRN Reason: Systolic Blood Pressure Pantoprazole Sodium (Protonix Ec Tab) 40 mg PO 0600 [facility] Last Admin: 06/16/18 06:43 Dose: 40 mg Pilocarpine HCl (Isopto Carpine 1% Opht Soln) 0 ml OD QID [facility] Last Admin: 06/16/18 10:09 Dose: 1 drop Polyethylene Glycol (Miralax) 17 gm PO DAILY [facility] Last Admin: 06/16/18 13:22 Dose: Not Given Rivaroxaban (Xarelto) 20 mg PO DAILY [facility] PRN Reason: Protocol Last Admin: 06/16/18 13:22 Dose: Not Given Trazodone HCl (Desyrel) 100 mg PO HS [facility] Last Admin: 06/16/18 00:19 Dose: Not Given - Labs Labs: 06/16/18 06:30 06/16/18 06:30 PT 19.5 SECONDS (9.4-12.5) H 06/13/18 01:25 INR 1.69 (0.93-1.08) H 06/13/18 01:25 APTT 35.8 Seconds (25.1-36.5) 06/13/18 01:25 Attending/Attestation - Attestation I have personally seen and examined this patient.: Yes I have fully participated in the care of the patient.: Yes I have reviewed all pertinent clinical information, including history, physical exam and plan: Yes Notes (Text): 06/16/18 14:11 Attending note; Patient seen and examined with resident in ICU. Patient is alert and awake. Not in any acute distress. tolerating diet well. No nausea or vomiting. Patient is a 47 year old female with a PMHx significant for developmental delay , deafness, autism, congenital rubella syndrome, glaucoma, mitral regurgitation , as,aortic insufficiency, and atrial fibrillation anticoagulated w/ xarleto who was admitted for evaluation and treatment of exertional dyspnea, cyanosis, and cough. The patient was initially seen by [facility]. Doppler LE is negative for DVT on US and CT chest angio showed no PE, did show R sided small pleural effusion; BNP elevated, and subsequently administered lasix. The patient was then transferred to [facility]. Anemia; Status post 2 unit PRBC transfusion. Currently tachycardia resolved. Hypotension resolved. Patient with a history of significant aortic stenosis/insufficiency. Paroxysmal atrial fibrillation; continue xarelto. No active bleeding noted. UA is normal. Stool for occult blood is negative. No vaginal bleeding. Constipation; CT abdomen showed constipation. Started on MiraLAX and Colace. Patient is having bowel movement. Tolerating diet well. Abdominal examination is normal. pelvic ultrasound showed no significant abnormality even though it is limited. Reviewed with SENIOR PROFESSIONAL SERVICES CONSULTANT in detail. Patient needs close outpatient follow-up with primary SENIOR PROFESSIONAL SERVICES CONSULTANT. Congenital rubella syndrome with viri disorder; continue home medications including clonazepam, BuSpirone,prozac,and trazadone. Case discussed with catalytic case operator/social media marketing specialist in detail. Transferred to telemetry floor. Physical therapy evaluation requested.
[2018-06-16] MEDS: Pilocarpine 1% Opht (15ml) OD SCH ×6 (00:20→23:05)
[2018-06-16] MEDS: Latanoprost 2.5 ml Opht Soln OU SCH ×2 (00:20→23:04)
[2018-06-16] MEDS: Pantoprazole 40 mg EC Tab PO SCH (06:43)
[2018-06-16 07:17] LABS: BASO # 0.06 K/mm3 (0.0-2.0); BASO % 0.6 % (0.0-3.0); EOS # 0.5 (0.0-0.7); EOS % 5.7 % (1.5-5.0); GRAN # 6.64 (1.4-6.5); GRAN % 70.9 % (50.0-68.0); HEMOGLOBIN 11.7 g/dL (12.0-16.0); LYMPH # 0.7 (1.2-3.4); LYMPH % 7.7 % (22.0-35.0); MEAN CELL VOLUME 88.2 fl (80.0-105.0); MEAN CORPUSCULAR HEMOGLOBIN 27.1 pg (25.0-35.0); MEAN CORPUSCULAR HGB CONC 30.7 g/dl (31.0-37.0); MEAN PLATELET VOLUME 12.3 fl (7.0-11.0); MONO # 1.4 (0.1-0.6); MONO % 15.1 % (1.0-6.0); RBC 4.32 10^6/uL (3.5-6.1); WHITE BLOOD COUNT 9.4 10^3/ul (4.5-11.0)
[2018-06-16 07:41] LABS: ALB/GLOB RATIO 1.3 (1.1-1.8); ALBUMIN 3.9 g/dL (3.0-4.8); ALT/SGPT 30 U/L (7-56); AST/SGOT 28 U/L (14-36); BLOOD UREA NITROGEN 7 mg/dL (7-21); CALCIUM 9.1 mg/dL (8.4-10.5); GFR AFRICAN-AMERICAN > 60; GFR NON-AFRICAN AMERICAN > 60
[2018-06-16] MEDS: POLYETHYLENE GLYCOL 3350 17 GM/Dose PACKET PO SCH ×2 (10:08→13:22)
[2018-06-16] MEDS: ALPHAGAN P 0.1% OU SCH ×3 (10:09→17:22)
[2018-06-16] MEDS: Dorzolamide 2% Opht Sol 10ml OU SCH ×3 (10:10→17:22)
--- NOTE | 2018-06-16 10:43 | CP.PCM.PN ---
<Ascencion Mcginnis - Last Filed: 06/16/18 12:02> Subjective - Date & Time of Evaluation Date of Evaluation: 06/16/18 Time of Evaluation: 10:37 - Subjective Subjective: Ascencion Mcginnis D.O PGY-1, Internal Medicine progress note for Patient seen and examined at bedside. Patient was agitated last night after her packer sausage and wiener left, patient was put on 1:1. Further subjective data cannot be gathered at this time due to communication barrier as packer sausage and wiener is not at beside. Objective - Vital Signs/Intake and Output Vital Signs (last 24 hours): Temp Pulse Resp BP Pulse Ox 98.1 F 120 H 16 115/74 100 06/16/18 04:00 06/16/18 10:08 06/16/18 04:00 06/16/18 10:08 06/16/18 04:00 Intake and Output: 06/16/18 06/16/18 06:59 18:59 Intake Total 180 Balance 180 - Medications Medications: Current Medications Buspirone HCl (Buspar) 30 mg PO DAILY [facility] Last Admin: 06/16/18 10:18 Dose: 30 mg Clonazepam (Klonopin) 1 mg PO DAILY [facility] PRN Reason: Protocol Last Admin: 06/16/18 10:08 Dose: 1 mg Docusate Sodium (Colace Liquid) 100 mg PO TID [facility] Last Admin: 06/16/18 10:08 Dose: 100 mg Dorzolamide HCl (Trusopt) 0 ml OU TID [facility] Last Admin: 06/16/18 10:10 Dose: 1 drop Ferrous Gluconate (Fergon) 324 mg PO DAILY [facility] Last Admin: 06/16/18 10:08 Dose: 324 mg Fluoxetine HCl (Prozac) 10 mg PO DAILY [facility] Last Admin: 06/16/18 10:07 Dose: 10 mg Home Med (Home Med) 0 unit OU TID [facility] Last Admin: 06/16/18 10:09 Dose: 1 unit Latanoprost (Xalatan Opht) 0 ml OU HS [facility] Last Admin: 06/16/18 00:20 Dose: 2.5 ml Metoprolol Tartrate (Lopressor) 25 mg PO BID [facility] Last Admin: 06/16/18 10:08 Dose: 25 mg Pantoprazole Sodium (Protonix Ec Tab) 40 mg PO 0600 [facility] Last Admin: 06/16/18 06:43 Dose: 40 mg Pilocarpine HCl (Isopto Carpine 1% Opht Soln) 0 ml OD QID [facility] Last Admin: 06/16/18 10:09 Dose: 1 drop Polyethylene Glycol (Miralax) 17 gm PO DAILY [facility] Last Admin: 06/16/18 10:08 Dose: 17 gm Rivaroxaban (Xarelto) 20 mg PO DAILY [facility] PRN Reason: Protocol Last Admin: 06/16/18 10:08 Dose: 20 mg Trazodone HCl (Desyrel) 100 mg PO HS [facility] Last Admin: 06/16/18 00:19 Dose: Not Given - Labs Labs: 06/16/18 06:30 06/16/18 06:30 PT 19.5 SECONDS (9.4-12.5) H 06/13/18 01:25 INR 1.69 (0.93-1.08) H 06/13/18 01:25 APTT 35.8 Seconds (25.1-36.5) 06/13/18 01:25 - Constitutional Appears: No Acute Distress - Head Exam Head Exam: ATRAUMATIC, NORMAL INSPECTION - Eye Exam Additional comments: cataracts on bilateral eyes - ENT Exam ENT Exam: Mucous Membranes Moist - Respiratory Exam Respiratory Exam: Clear to Ausculation Bilateral. absent: Rales, Rhonchi, Wheezes - Cardiovascular Exam Cardiovascular Exam: REGULAR RHYTHM, +S1, +S2. absent: Gallop, Rubs, Murmur - GI/Abdominal Exam GI & Abdominal Exam: Soft, Normal Bowel Sounds. absent: Tenderness - Extremities Exam Extremities Exam: absent: Calf Tenderness Additional comments: trace edema on both legs - Neurological Exam Neurological Exam: Alert, Awake - Psychiatric Exam Psychiatric exam: Normal Affect, Normal Mood - Skin Skin Exam: Dry, Normal Color, Warm Assessment and Plan - Assessment and Plan (Free Text) Assessment: Ms. Wong is a 47 year old female with a PMHx of significant for developmental delay, deafness, autism, congenital rubella syndrome, glaucoma, mitral regurgitation, aortic insufficiency, and atrial fibrillation anticoagulated w/ xarleto who was admitted for evaluation and treatment of exertional dyspnea, cyanosis, and cough. Plan: Exertional Dyspnea - likely secondary to diastolic congestive heart failure vs chronic atrial fibrillation with intermittent SVTs - maintain O2 Sat >95% on nonrebreather - Echocardiogram (06/13) reviewed and appreciated- LVEF 68%, aortic valve bicuspid, severe aortic regurg, severe valvular aortic stenosis, MR moderate - Call placed to patient's welding teacher Dr. East, information consent form faxed to his office, spoke with office staff, informed that information will be sent, awaiting requested information Hx Atrial Fibrillation - Continue home Xarelto 1mg QD - FOBT negative - c/w Lopressor 25mg PO BID as per cardiology - cardiology consulted - d/c telemetry Normocytic Anemia, resolved - Anemia appears to be chronic - C/w home iron pills - Transvaginal ultrasound not done due to patient getting agitated - Pelvic ultrasound (06/13): trace endometrial fluid Constipation - Pelvic ultrasound showed constipation - c/w colace and miralax Deconditioning - physical therapy consulted awaiting recommendations Hx Psychiatric Disorder/ Developmental Delay - Buspirone 1mg QD - clonazepam 1mg QD - prozac 1mg QD - Trazadone 1 tab HS Prophylaxis - PPI- Protonix - DVT- Xarelto Patient seen, case discussed with, and plan approved by attending physician, Dr. Vail. <Mima Vail - Last Filed: 06/17/18 13:24> Objective - Vital Signs/Intake and Output Vital Signs (last 24 hours): Temp Pulse Resp BP Pulse Ox 99 F 114 H 18 109/77 91 L 06/17/18 12:00 06/17/18 12:00 06/17/18 12:00 06/17/18 12:00 06/17/18 06:05 Intake and Output: 06/17/18 06/17/18 06:59 18:59 Intake Total 540 Balance 540 - Medications Medications: Current Medications Buspirone HCl (Buspar) 30 mg PO DAILY [facility] Last Admin: 06/17/18 11:23 Dose: 30 mg Clonazepam (Klonopin) 1 mg PO BID [facility] PRN Reason: Protocol Last Admin: 06/17/18 11:22 Dose: 1 mg Docusate Sodium (Colace Liquid) 100 mg PO TID [facility] Last Admin: 06/17/18 11:25 Dose: 100 mg Dorzolamide HCl (Trusopt) 0 ml OU TID [facility] Last Admin: 06/17/18 11:29 Dose: 1 drop Enoxaparin Sodium (Lovenox) 60 mg SC Q12H [facility] PRN Reason: Protocol Last Admin: 06/17/18 02:52 Dose: 60 mg Ferrous Gluconate (Fergon) 324 mg PO DAILY [facility] Last Admin: 06/17/18 11:22 Dose: 324 mg Fluoxetine HCl (Prozac) 10 mg PO DAILY [facility] Last Admin: 06/17/18 11:22 Dose: 10 mg Home Med (Home Med) 0 unit OU TID [facility] Last Admin: 06/17/18 11:27 Dose: 1 unit Latanoprost (Xalatan Opht) 0 ml OU HS [facility] Last Admin: 06/16/18 23:04 Dose: 2.5 ml Lorazepam (Ativan) 1 mg IVP Q6H PRN; Protocol PRN Reason: Anxiety Metoprolol Tartrate (Lopressor) 25 mg PO BID [facility] Last Admin: 06/17/18 11:21 Dose: 25 mg Metoprolol Tartrate (Lopressor) 5 mg IVP Q6 PRN PRN Reason: Systolic Blood Pressure Last Admin: 06/16/18 14:22 Dose: 5 mg Pantoprazole Sodium (Protonix Ec Tab) 40 mg PO 0600 [facility] Last Admin: 06/17/18 05:32 Dose: Not Given Pilocarpine HCl (Isopto Carpine 1% Opht Soln) 0 ml OD QID [facility] Last Admin: 06/17/18 11:28 Dose: 1 drop Polyethylene Glycol (Miralax) 17 gm PO DAILY [facility] Last Admin: 06/17/18 11:25 Dose: 17 gm Trazodone HCl (Desyrel) 100 mg PO [facility] Last Admin: 06/16/18 23:03 Dose: 100 mg - Labs Labs: 06/17/18 07:00 06/16/18 06:30 PT 19.5 SECONDS (9.4-12.5) H 06/13/18 01:25 INR 1.69 (0.93-1.08) H 06/13/18 01:25 APTT 35.8 Seconds (25.1-36.5) 06/13/18 01:25 Attending/Attestation - Attestation I have personally seen and examined this patient.: Yes I have fully participated in the care of the patient.: Yes I have reviewed all pertinent clinical information, including history, physical exam and plan: Yes Notes (Text): 06/17/18 13:14 Attending note; Patient seen and examined with resident. Patient is alert and awake. Not in any acute distress. Patient was agitated last night after the sitter left. Now has episodes of restlessness. Walking around in the room. Oxygen saturation is normal. tolerating diet well. No nausea or vomiting. Patient is refusing by mouth medications on and off. Patient is a 47 year old female with a PMHx significant for developmental delay , deafness, autism, congenital rubella syndrome, glaucoma, mitral regurgitation , as,aortic insufficiency, and atrial fibrillation anticoagulated w/ xarleto who was admitted for evaluation and treatment of exertional dyspnea, cyanosis, and cough. The patient was initially seen by [facility]. Doppler LE is negative for DVT on US and CT chest angio showed no PE, did show R sided small pleural effusion; BNP elevated, and subsequently administered lasix. Shortness of breath secondary to Anemia/aortic valvular disease. Status post 2 unit PRBC transfusion. Hemoglobin stable at 10.8. Paroxysmal atrial fibrillation; continue xarelto. No active bleeding noted. UA is normal. Stool for occult blood is negative. No vaginal bleeding. Constipation; CT abdomen showed constipation. Started on MiraLAX and Colace. Patient is having bowel movement. Tolerating diet well. GI evaluation requested. pelvic ultrasound showed no significant abnormality even though it is limited. Reviewed with DIET COUNSELOR in detail. Patient needs close outpatient follow-up with primary DIET COUNSELOR. Congenital rubella syndrome with viri disorder; continue home medications including clonazepam, BuSpirone,prozac,and trazadone. Monitor closely in telemetry. Might need to give IV medication if patient refuses by mouth meds. IV metoprolol can be given to control heart rate instead of by mouth metoprolol. Subcutaneous Lovenox given instead of xarelto. continue IV Ativan when necessary. Nursing staff informed. Monitor closely. We will follow up with school social worker for discharge planning.
--- NOTE | 2018-06-16 13:55 | PN ---
DATE: 06/16/2018 FOLLOWUP SUBJECTIVE: The patient appears comfortable. She is walking around. She is one-to-one watch. PHYSICAL EXAMINATION: VITAL SIGNS: Blood pressure 115/74, heart rate 120, temperature 98.1, respirations 16. HEENT: No icterus. CHEST: Minimal rhonchi. HEART: S1 and S2 regular with grade IV/ ejection systolic murmur over left sternal border. EXTREMITIES: Trace leg edema. LABORATORY DATA: Hemoglobin and hematocrit 11.7 and 38.1. White count and platelet count today are within normal limits. Today's SMA-7 is within normal limit except for creatinine 0.6. ASSESSMENT: 1. Bicuspid aortic valve with severe aortic stenosis and aortic insufficiency. 2. Anemia. 3. Paroxysmal atrial fibrillation. RECOMMENDATIONS: Continue current BuSpar, Desyrel, Klonopin, Lopressor and Xarelto at 20 mg daily. Bin Gallagher MD
[2018-06-16] MEDS: Metoprolol 1 mg/ml Inj IVP PRN (14:22)
[2018-06-16] MEDS: Enoxaparin 60 mg Syringe SC SCH (15:48)
[2018-06-17] MEDS: Enoxaparin 60 mg Syringe SC SCH (02:52)
[2018-06-17] MEDS: Pantoprazole 40 mg EC Tab PO SCH ×2 (05:28→05:32)
[2018-06-17 07:45] LABS: BASO # 0.07 K/mm3 (0.0-2.0); BASO % 1.2 % (0.0-3.0); EOS # 0.5 (0.0-0.7); EOS % 8.3 % (1.5-5.0); GRAN # 3.41 (1.4-6.5); GRAN % 60.6 % (50.0-68.0); HEMOGLOBIN 10.8 g/dL (12.0-16.0); LYMPH # 0.9 (1.2-3.4); LYMPH % 15.3 % (22.0-35.0); MEAN CELL VOLUME 88.9 fl (80.0-105.0); MEAN CORPUSCULAR HEMOGLOBIN 27.2 pg (25.0-35.0); MEAN CORPUSCULAR HGB CONC 30.6 g/dl (31.0-37.0); MEAN PLATELET VOLUME 12.6 fl (7.0-11.0); MONO # 0.8 (0.1-0.6); MONO % 14.6 % (1.0-6.0); RBC 3.97 10^6/uL (3.5-6.1); RED CELL DISTRIBUTION WIDTH 15.1 % (11.5-14.5); WHITE BLOOD COUNT 5.6 10^3/ul (4.5-11.0)
[2018-06-17] MEDS ORDERED: Mineral Oil Enema 135 ml RC ONE (08:00)
--- NOTE | 2018-06-17 10:13 | CP.PCM.PN ---
<Ascencion Mcginnis - Last Filed: 06/17/18 10:09> Subjective - Date & Time of Evaluation Date of Evaluation: 06/17/18 Time of Evaluation: 10:09 - Subjective Subjective: Ascencion Mcginnis D.O PGY-1, Internal Medicine progress note for Patient seen and examined at bedside. Patient still on 1:1 but she is not agitated today. Further subjective data cannot be gathered at this time due to communication barrier as cadence specialists is not at beside. Objective - Vital Signs/Intake and Output Vital Signs (last 24 hours): Temp Pulse Resp BP Pulse Ox 97.3 F L 105 H 20 101/72 91 L 06/17/18 06:05 06/17/18 06:05 06/17/18 06:05 06/17/18 06:05 06/17/18 06:05 Intake and Output: 06/17/18 06/17/18 06:59 18:59 Intake Total 540 Balance 540 - Medications Medications: Current Medications Buspirone HCl (Buspar) 30 mg PO DAILY [facility] Last Admin: 06/15/18 09:40 Dose: 30 mg Clonazepam (Klonopin) 1 mg PO BID [facility] PRN Reason: Protocol Last Admin: 06/16/18 17:22 Dose: 1 mg Docusate Sodium (Colace Liquid) 100 mg PO TID [facility] Last Admin: 06/16/18 18:05 Dose: Not Given Dorzolamide HCl (Trusopt) 0 ml OU TID [facility] Last Admin: 06/16/18 17:22 Dose: 1 drop Enoxaparin Sodium (Lovenox) 60 mg SC Q12H [facility] PRN Reason: Protocol Last Admin: 06/17/18 02:52 Dose: 60 mg Ferrous Gluconate (Fergon) 324 mg PO DAILY [facility] Last Admin: 06/16/18 14:13 Dose: Not Given Fluoxetine HCl (Prozac) 10 mg PO DAILY [facility] Last Admin: 06/16/18 13:22 Dose: Not Given Home Med (Home Med) 0 unit OU TID [facility] Last Admin: 06/16/18 17:22 Dose: 1 unit Latanoprost (Xalatan Opht) 0 ml OU HS [facility] Last Admin: 06/16/18 23:04 Dose: 2.5 ml Lorazepam (Ativan) 1 mg IVP Q6H PRN; Protocol PRN Reason: Anxiety Metoprolol Tartrate (Lopressor) 25 mg PO BID [facility] Last Admin: 06/16/18 17:21 Dose: 25 mg Metoprolol Tartrate (Lopressor) 5 mg IVP Q6 PRN PRN Reason: Systolic Blood Pressure Last Admin: 06/16/18 14:22 Dose: 5 mg Pantoprazole Sodium (Protonix Ec Tab) 40 mg PO 0600 [facility] Last Admin: 06/17/18 05:32 Dose: Not Given Pilocarpine HCl (Isopto Carpine 1% Opht Soln) 0 ml OD QID [facility] Last Admin: 06/16/18 23:05 Dose: 1 drop Polyethylene Glycol (Miralax) 17 gm PO DAILY [facility] Last Admin: 06/16/18 13:22 Dose: Not Given Trazodone HCl (Desyrel) 100 mg PO HS [facility] Last Admin: 06/16/18 23:03 Dose: 100 mg - Labs Labs: 06/17/18 07:00 06/16/18 06:30 PT 19.5 SECONDS (9.4-12.5) H 06/13/18 01:25 INR 1.69 (0.93-1.08) H 06/13/18 01:25 APTT 35.8 Seconds (25.1-36.5) 06/13/18 01:25 - Constitutional Appears: No Acute Distress - Head Exam Head Exam: ATRAUMATIC, NORMAL INSPECTION - Eye Exam Additional comments: cataracts present on bilateral eyes - ENT Exam ENT Exam: Mucous Membranes Moist - Respiratory Exam Respiratory Exam: Clear to Ausculation Bilateral. absent: Rales, Rhonchi, Wheezes - Cardiovascular Exam Cardiovascular Exam: REGULAR RHYTHM, +S1, +S2, Murmur Additional comments: + systolic murmur 2nd ICS Right, 2nd ICS left, and left inferior sternal border - GI/Abdominal Exam GI & Abdominal Exam: Soft, Normal Bowel Sounds. absent: Tenderness - Extremities Exam Extremities Exam: absent: Calf Tenderness, Pedal Edema - Neurological Exam Neurological Exam: Alert, Awake - Psychiatric Exam Psychiatric exam: Normal Affect, Normal Mood - Skin Skin Exam: Dry, Normal Color, Warm Assessment and Plan - Assessment and Plan (Free Text) Assessment: Ms. Wong is a 47 year old female with a PMHx of significant for developmental delay, deafness, autism, congenital rubella syndrome, glaucoma, mitral regurgitation, aortic insufficiency, and atrial fibrillation anticoagulated w/ xarleto who was admitted for evaluation and treatment of exertional dyspnea, cyanosis, and cough. Plan: Hx Atrial Fibrillation - Xarelto 1mg QD held- patient is refusing PO medications, give lovenox SC - started Lovenox 60mg SC Q12 - c/w Lopressor 25mg PO BID-patient is refusing PO medications, give IV Lopressor - c/w Lopressor IV 5mg Q6 PRN - cardiology consulted, Dr. Gallagher - patient on telemetry Constipation - Pelvic ultrasound showed constipation - c/w colace and miralax- not given, patient is refusing PO medications - will consider suppositories Exertional Dyspnea, resolved - likely secondary to diastolic congestive heart failure vs chronic atrial fibrillation with intermittent SVTs - Echocardiogram (06/13): LVEF 68%, aortic valve bicuspid, severe aortic regurg, severe valvular aortic stenosis, MR moderate - Call placed to patient's roll forming supervisor Dr. East, information consent form faxed to his office, spoke with office staff, informed that information will be sent, awaiting requested information Normocytic Anemia, resolved - Anemia appears to be chronic - C/w home iron pills- not given, patient is refusing PO medications - Transvaginal ultrasound not done due to patient getting agitated - Pelvic ultrasound (06/13): trace endometrial fluid Deconditioning - physical therapy consulted awaiting recommendations Hx Psychiatric Disorder/ Developmental Delay - Buspirone 30mg QD - clonazepam 1mg BID - prozac 10mg QD-not given, patient is refusing PO medications - Trazadone 100mg HS Prophylaxis - PPI: Protonix - DVT: Lovenox Patient seen, case discussed with, and plan approved by attending physician, Dr. Vail. <Mima Vail - Last Filed: 06/17/18 13:27> Objective - Vital Signs/Intake and Output Vital Signs (last 24 hours): Temp Pulse Resp BP Pulse Ox 99 F 114 H 18 109/77 91 L 06/17/18 12:00 06/17/18 12:00 06/17/18 12:00 06/17/18 12:00 06/17/18 06:05 Intake and Output: 06/17/18 06/17/18 06:59 18:59 Intake Total 540 Balance 540 - Medications Medications: Current Medications Buspirone HCl (Buspar) 30 mg PO DAILY [facility] Last Admin: 06/17/18 11:23 Dose: 30 mg Clonazepam (Klonopin) 1 mg PO BID [facility] PRN Reason: Protocol Last Admin: 06/17/18 11:22 Dose: 1 mg Docusate Sodium (Colace Liquid) 100 mg PO TID [facility] Last Admin: 06/17/18 11:25 Dose: 100 mg Dorzolamide HCl (Trusopt) 0 ml OU TID [facility] Last Admin: 06/17/18 11:29 Dose: 1 drop Ferrous Gluconate (Fergon) 324 mg PO DAILY [facility] Last Admin: 06/17/18 11:22 Dose: 324 mg Fluoxetine HCl (Prozac) 10 mg PO DAILY [facility] Last Admin: 06/17/18 11:22 Dose: 10 mg Home Med (Home Med) 0 unit OU TID [facility] Last Admin: 06/17/18 11:27 Dose: 1 unit Latanoprost (Xalatan Opht) 0 ml OU HS [facility] Last Admin: 06/16/18 23:04 Dose: 2.5 ml Lorazepam (Ativan) 1 mg IVP Q6H PRN; Protocol PRN Reason: Anxiety Metoprolol Tartrate (Lopressor) 25 mg PO BID [facility] Last Admin: 06/17/18 11:21 Dose: 25 mg Metoprolol Tartrate (Lopressor) 5 mg IVP Q6 PRN PRN Reason: Systolic Blood Pressure Last Admin: 06/16/18 14:22 Dose: 5 mg Pantoprazole Sodium (Protonix Ec Tab) 40 mg PO 0600 [facility] Last Admin: 06/17/18 05:32 Dose: Not Given Pilocarpine HCl (Isopto Carpine 1% Opht Soln) 0 ml OD QID [facility] Last Admin: 06/17/18 11:28 Dose: 1 drop Polyethylene Glycol (Miralax) 17 gm PO DAILY [facility] Last Admin: 06/17/18 11:25 Dose: 17 gm Rivaroxaban (Xarelto) 20 mg PO DAILY [facility] PRN Reason: Protocol Trazodone HCl (Desyrel) 100 mg PO HS [facility] Last Admin: 06/16/18 23:03 Dose: 100 mg - Labs Labs: 06/17/18 07:00 06/16/18 06:30 PT 19.5 SECONDS (9.4-12.5) H 06/13/18 01:25 INR 1.69 (0.93-1.08) H 06/13/18 01:25 APTT 35.8 Seconds (25.1-36.5) 06/13/18 01:25 Attending/Attestation - Attestation I have personally seen and examined this patient.: Yes I have fully participated in the care of the patient.: Yes I have reviewed all pertinent clinical information, including history, physical exam and plan: Yes Notes (Text): 06/17/18 13:24 Attending note; Patient seen and examined with resident. One-to-one sitter by the bedside. Patient is more calm today. Taking po medications today. Patient is a 47 year old female with a PMHx significant for developmental delay , deafness, autism, congenital rubella syndrome, glaucoma, mitral regurgitation , as,aortic insufficiency, and atrial fibrillation anticoagulated w/ xarleto who was admitted for evaluation and treatment of exertional dyspnea, cyanosis, and cough. The patient was initially seen by [facility]. Doppler LE is negative for DVT on US and CT chest angio showed no PE, did show R sided small pleural effusion; BNP elevated, and subsequently administered lasix. Shortness of breath secondary to Anemia/aortic valvular disease. resolved. Status post 2 unit PRBC transfusion. Hemoglobin stable at 10.8. Paroxysmal atrial fibrillation; continue xarelto. No active bleeding noted. UA is normal. Stool for occult blood is negative. No vaginal bleeding. Constipation; CT abdomen showed constipation. Started on MiraLAX and Colace. Patient is having bowel movement. Tolerating diet well. Denies any nausea, vomiting. GI evaluation appreciated. Fleet enema ordered. Congenital rubella syndrome with viri disorder; continue home medications including clonazepam, BuSpirone,prozac,and trazadone. Patient has episodes of agitation and aggression. Continue one-to-one observation. Monitor closely in telemetry. Nursing staff informed. We will follow up with social service manager for discharge planning. Upon discharge the patient will follow-up with PMD Dr. Mera. 06/17/18 13:27
[2018-06-17] MEDS: POLYETHYLENE GLYCOL 3350 17 GM/Dose PACKET PO SCH (11:25)
[2018-06-17] MEDS: ALPHAGAN P 0.1% OU SCH ×3 (11:27→17:33)
[2018-06-17] MEDS: Pilocarpine 1% Opht (15ml) OD SCH ×4 (11:28→22:01)
[2018-06-17] MEDS: Dorzolamide 2% Opht Sol 10ml OU SCH ×3 (11:29→17:34)
--- NOTE | 2018-06-17 13:53 | CON ---
DATE: 06/17/2018 HISTORY OF PRESENT ILLNESS: I examined Ms. Wong this morning. She is a 47-year-old white female with past medical history significant for developmental delay with some deafness, mitral regurgitation, aortic insufficiency, atrial fibrillation, apparently anticoagulated with Xarelto, presented to the hospital on 06/13/2018 with dyspnea and cough. Patient is also known to have increasing cough and wheezing. Evaluation at local facility included ultrasound as well as chest CT angio, which is noncontributory. Her BNP had been elevated. She was also hypotensive on admission. This consult was called by Dr. Vail for complaints of constipation. On review of her pelvic ultrasound, no findings were noted. Review of the images on CT scan, which was performed on 06/14/2018, indicated a small pleural effusion, also trace amount of stool noted in the ascending colon, as well as in the distal sigmoid and rectum. Does not appear to be bowel obstruction or stricture. I discussed this case with the nurse on the floor. Apparently, there has not been no abdominal pain, nausea or vomiting. Bowel movements have been very small pebble like, according to the clinical nursing instructor at bedside. PHYSICAL EXAMINATION: VITAL SIGNS: I reviewed this patient's vital signs. HEENT: Unable to be performed properly. LUNGS: Decreased breath sounds at bases. HEART: Irregular rhythm. ABDOMEN: Soft. Fullness noted in the area above the umbilicus suggestive of stool in the transverse colon. She also has a fullness noted at the periumbilical and left lower quadrants. LABORATORY DATA: Reviewed. As indicated in the note above, CT indicates substantial amount of stool, noted in the distal sigmoid as well as rectum. OVERALL ASSESSMENT: This is a 47-year-old female with developmental delay, admitted with congestive heart failure and initial brain natriuretic peptide value was 1180. Patient is being treated for congestive heart failure and being seen by multiple consultants. According to the last Cardiology note, patient has tricuspid aortic valve and severe aortic stenosis with aortic insufficiency. I reviewed the recommendations of Dr. Gallagher. Imaging studies and her physical exam are suggestive of scattered stool throughout the colon and substantially in the distal colon and rectum. Would suggest at least for today Fleet's oil retention enema followed by two water enemas. If this is unsuccessful in inducing a bowel movement ,may require digital disimpaction by the house staff. After she has success with the bowel movement with the regimen noted above, suggest continuing with the MiraLax and Colace. She may need a mini colon prep or either MOM or magnesium citrate on a periodic basis to maintain bowel movements. John Darden DO, PhD MARRY
[2018-06-17] MEDS: Latanoprost 2.5 ml Opht Soln OU SCH (22:02)
[2018-06-18] MEDS: Pantoprazole 40 mg EC Tab PO SCH (05:34)
[2018-06-18] MEDS: Pilocarpine 1% Opht (15ml) OD SCH ×4 (09:55→23:20)
[2018-06-18] MEDS: ALPHAGAN P 0.1% OU SCH ×3 (09:55→17:29)
[2018-06-18] MEDS: Dorzolamide 2% Opht Sol 10ml OU SCH ×3 (09:56→17:29)
[2018-06-18] MEDS ORDERED: POLYETHYLENE GLYCOL 3350 17 GM/Dose PACKET PO PRN (15:14)
--- NOTE | 2018-06-18 15:26 | CP.PCM.PN ---
<Anabel Martellpham - Last Filed: 06/18/18 17:51> Subjective - Date & Time of Evaluation Date of Evaluation: 06/18/18 Time of Evaluation: 15:23 - Subjective Subjective: Yolanda Martell PGY-[address] Progress Note for Hospitalist Dr. Vivas Ms. Wong is deaf and non-verbal at this time. She was not agitated last night. Communication unavailable due to vendor management specialist not at bedside. Nursing notes indicate low agitation over night. Objective - Vital Signs/Intake and Output Vital Signs (last 24 hours): Temp Pulse Resp BP Pulse Ox 98.7 F 121 H 19 107/76 94 L 06/18/18 12:00 06/18/18 12:00 06/18/18 12:00 06/18/18 12:00 06/18/18 05:53 - Medications Medications: Current Medications Buspirone HCl (Buspar) 30 mg PO DAILY [facility] Last Admin: 06/18/18 09:53 Dose: 30 mg Clonazepam (Klonopin) 1 mg PO BID [facility] PRN Reason: Protocol Last Admin: 06/18/18 09:53 Dose: 1 mg Dorzolamide HCl (Trusopt) 0 ml OU TID [facility] Last Admin: 06/18/18 14:08 Dose: 1 drop Ferrous Gluconate (Fergon) 324 mg PO DAILY [facility] Last Admin: 06/18/18 09:53 Dose: 324 mg Fluoxetine HCl (Prozac) 10 mg PO DAILY [facility] Last Admin: 06/18/18 09:54 Dose: 10 mg Home Med (Home Med) 0 unit OU TID [facility] Last Admin: 06/18/18 14:08 Dose: 1 unit Latanoprost (Xalatan Opht) 0 ml OU HS [facility] Last Admin: 06/17/18 22:02 Dose: 2.5 ml Lorazepam (Ativan) 1 mg IVP Q6H PRN; Protocol PRN Reason: Anxiety Metoprolol Tartrate (Lopressor) 25 mg PO BID [facility] Last Admin: 06/18/18 09:54 Dose: Not Given Metoprolol Tartrate (Lopressor) 5 mg IVP Q6 PRN PRN Reason: Systolic Blood Pressure Last Admin: 06/16/18 14:22 Dose: 5 mg Metoprolol Tartrate (Lopressor) 12.5 mg PO BID [facility] Pantoprazole Sodium (Protonix Ec Tab) 40 mg PO 0600 [facility] Last Admin: 06/18/18 05:34 Dose: Not Given Pilocarpine HCl (Isopto Carpine 1% Opht Soln) 0 ml OD QID [facility] Last Admin: 06/18/18 14:07 Dose: 1 drop Polyethylene Glycol (Miralax) 17 gm PO DAILY [facility] PRN Reason: Constipation Rivaroxaban (Xarelto) 20 mg PO DAILY [facility] PRN Reason: Protocol Last Admin: 06/18/18 09:53 Dose: 20 mg Trazodone HCl (Desyrel) 100 mg PO HS [facility] Last Admin: 06/17/18 22:12 Dose: Not Given - Labs Labs: 06/17/18 07:00 06/16/18 06:30 PT 19.5 SECONDS (9.4-12.5) H 06/13/18 01:25 INR 1.69 (0.93-1.08) H 06/13/18 01:25 APTT 35.8 Seconds (25.1-36.5) 06/13/18 01:25 - Constitutional Appears: Well, No Acute Distress - Head Exam Head Exam: ATRAUMATIC - Eye Exam Eye Exam: EOMI - ENT Exam ENT Exam: Mucous Membranes Moist, Normal Exam - Neck Exam Neck Exam: Full ROM - Respiratory Exam Respiratory Exam: Clear to Ausculation Bilateral - Cardiovascular Exam Cardiovascular Exam: REGULAR RHYTHM, +S1, +S2, Murmur Additional comments: systolic murmur best heard at the Right and Left 2nd intercostal spaces - GI/Abdominal Exam GI & Abdominal Exam: Soft, Normal Bowel Sounds - Extremities Exam Extremities Exam: Normal Inspection - Neurological Exam Neurological Exam: Normal Gait - Skin Skin Exam: Normal Color Assessment and Plan - Assessment and Plan (Free Text) Assessment: Ms. Wong is a 47 year old female with a PMHx of significant for developmental delay, deafness, autism, congenital rubella syndrome, glaucoma, mitral regurgitation, aortic insufficiency, and atrial fibrillation anticoagulated w/ xarleto who was admitted for evaluation and treatment of exertional dyspnea, cyanosis, and cough. Plan: Hx Atrial Fibrillation - xarelto 20 given - changed Lopressor to 12mg PO BID due to hypotension, pt refused lopressor today - cardiology consulted, Dr. Gallagher - patient on telemetry Constipation - Pelvic ultrasound showed constipation - consulted Dr. Darden, will give fleet oil retention enema followed by 2 water enemas Exertional Dyspnea, resolved - likely secondary to diastolic congestive heart failure vs chronic atrial fibrillation with intermittent SVTs - Echocardiogram (06/13): LVEF 68%, aortic valve bicuspid, severe aortic regurg, severe valvular aortic stenosis, MR moderate - Call placed to patient's manufacturing applications engineer Dr. East, information consent form faxed to his office, spoke with office staff, informed that information will be sent, awaiting requested information Normocytic Anemia, resolved - Anemia appears to be chronic - C/w home iron pills - Transvaginal ultrasound not done due to patient getting agitated - Pelvic ultrasound (06/13): trace endometrial fluid Deconditioning - physical therapy consulted, does not recommend services at this time Hx Psychiatric Disorder/ Developmental Delay - Buspirone 30mg QD - clonazepam 1mg BID - prozac 10mg QD-not given, patient is refusing PO medications - Trazadone 100mg HS Prophylaxis - PPI: Protonix - DVT: Lovenox <Cassandra Vivas R - Last Filed: 06/19/18 20:23> Objective - Vital Signs/Intake and Output Vital Signs (last 24 hours): Temp Pulse Resp BP Pulse Ox 99.2 F 122 H 18 115/79 96 06/19/18 12:27 06/19/18 18:00 06/19/18 06:00 06/19/18 17:52 06/19/18 06:00 - Medications Medications: Current Medications Acetaminophen (Tylenol 325mg Tab) 650 mg PO Q6H PRN PRN Reason: Fever >100.4 F Last Admin: 06/19/18 11:27 Dose: 650 mg Buspirone HCl (Buspar) 30 mg PO DAILY [facility] Last Admin: 06/19/18 10:15 Dose: 30 mg Clonazepam (Klonopin) 1 mg PO BID [facility] PRN Reason: Protocol Last Admin: 06/19/18 17:52 Dose: 1 mg Dorzolamide HCl (Trusopt) 0 ml OU TID [facility] Last Admin: 06/19/18 17:54 Dose: 2 drop Ferrous Gluconate (Fergon) 324 mg PO DAILY [facility] Last Admin: 06/19/18 10:15 Dose: 324 mg Fluoxetine HCl (Prozac) 10 mg PO DAILY [facility] Last Admin: 06/19/18 10:17 Dose: 10 mg Home Med (Home Med) 0 unit OU TID [facility] Last Admin: 06/19/18 17:53 Dose: 1 unit Latanoprost (Xalatan Opht) 0 ml OU HS [facility] Last Admin: 06/18/18 23:20 Dose: 2.5 ml Lorazepam (Ativan) 1 mg IVP Q6H PRN; Protocol PRN Reason: Anxiety Last Admin: 06/19/18 06:34 Dose: 1 mg Metoprolol Tartrate (Lopressor) 5 mg IVP Q6 PRN PRN Reason: Systolic Blood Pressure Last Admin: 06/19/18 06:35 Dose: 5 mg Metoprolol Tartrate (Lopressor) 50 mg PO BRKDIN [facility] Last Admin: 06/19/18 17:52 Dose: 50 mg Pantoprazole Sodium (Protonix Ec Tab) 40 mg PO 0600 [facility] Last Admin: 06/19/18 05:55 Dose: 40 mg Pilocarpine HCl (Isopto Carpine 1% Opht Soln) 0 ml OD QID [facility] Last Admin: 06/19/18 17:53 Dose: 1 drop Polyethylene Glycol (Miralax) 17 gm PO DAILY PRN PRN Reason: Constipation Rivaroxaban (Xarelto) 20 mg PO DAILY [facility] PRN Reason: Protocol Last Admin: 06/19/18 10:17 Dose: 20 mg Trazodone HCl (Desyrel) 100 mg PO HS [facility] Last Admin: 06/18/18 23:21 Dose: 100 mg - Labs Labs: 06/17/18 07:00 06/16/18 06:30 PT 19.5 SECONDS (9.4-12.5) H 06/13/18 01:25 INR 1.69 (0.93-1.08) H 06/13/18 01:25 APTT 35.8 Seconds (25.1-36.5) 06/13/18 01:25 Attending/Attestation - Attestation I have personally seen and examined this patient.: Yes I have fully participated in the care of the patient.: Yes I have reviewed all pertinent clinical information, including history, physical exam and plan: Yes Notes (Text): Patient seen and examined by me at 11:25AM 06/18/18 with resident. Patient is new to me. Case discussed with Dr. Mcmillan. Case including HPI, physical exam , and assessment and plan discussed with resident. Agree with above with following additions/corrections. Patient is a 47-year-old female with past medical history significant for developmental delay, autism, congenital rubella syndrome, deafness, blindness, aortic insufficiency, atrial fibrillation maintained Xarelto, glaucoma, and mitral regurgitation that presented to the emergency room with exertional dyspnea, cyanosis, and cough. Patient was evaluated prior at [facility] where she had left lower extremity doppler and CTA chest which were negative for DVT and PE. Unable to obtain review of systems from patient as patient is deaf and blind. Per patient's nurse, patient has been having approximately 8 water bowel movements today. She is afebrile. Patient is ambulating with assistance. Per nurse, patient is currently on her menstrual period. Physical exam: Gen: Awake and alert sitting up in chair in no acute distress HEENT: Normocephalic atraumatic. Neck is supple. Unable to examine oral pharynx as patient is not opening mouth. Patient is deaf and blind Cardiovascular: Normal rhythm. Normal S1, S2. Positive systolic murmur. No rubs or gallops appreciated Pulmonary: Normal respiratory effort. No rhonchi, rales or wheezing appreciated. Gastrointestinal: Soft, nontender, nondistended, positive bowel sounds all 4 quadrants, no guarding Musculoskeletal: Moves all extremities. Mild lower extremity edema Central nervous system: Unable to evaluate as patient is deaf and blind and not following commands Dermatologic: Skin warm and dry Assessment and plan: Patient is a 47-year-old female with past medical history significant for developmental delay, autism, congenital rubella syndrome, deafness, blindness, aortic insufficiency, atrial fibrillation maintained Xarelto, glaucoma, and mitral regurgitation that presented to the emergency room with exertional dyspnea, cyanosis, and cough. 1. Exertional dyspnea, cyanosis, and cough. Likely secondary to valvular disease vs anemia. ?diastolic CHF. Symptoms improved. S/P 2 units PRBCs. Patient ambulating without dyspnea. Continue with O2 via nasal cannula as needed. Cardiology following, recommendations appreciated. 2. Anemia. Stool for occult blood negative. Patient refusing blood work. H&H improved status post 2 units PRBC. Pelvic ultrasound showed trace endometrial fluid. Patient is on her menstrual period per nurse. Patient to have close outpatient follow up with [facility]. Continue ferrous gluconate daily. 3. Severe aortic stenosis/aortic regurgitation. Seen on echo. Cardiology following, recommendations appreciated. Pending records from patient's manufacturing applications engineer. 4. Constipation. S/P enema. Now with diarrhea. Miralax and colace held. Continue to monitor for now 5. Paroxysmal Atrial Fibrillation. Currently in Sinus rhythm. Patient refusing some PO medications. Taking Xarelto and Metoprolol intermittently. Cardiology following, recommendations appreciated 6. Psychiatric disorder/Developemental Delay/Congenital Rubella Syndrome. Continue Buspar, Klonopin, prozac, and trazodone. Continue one to one. 7. Glaucoma/blindness. Continue home eye drops. 8. GI/DVT prophylaxis. Protonix and Xarelto. Case was discussed in detail with the patient and mecical resident regarding current diagnosis and treatment plan.
--- NOTE | 2018-06-18 18:38 | PN ---
DATE: 06/18/2018 SUBJECTIVE: The patient is currently sleepy and she is on one-to-one watch. According to the attender, the patient was able to have her liquid breakfast this morning and she walked around. PHYSICAL EXAMINATION: VITAL SIGNS: Blood pressure 107/76, heart rate 121, temperature 98.7, and respirations 19. HEENT: Normocephalic. CHEST: Clear. HEART: S1 and S2, regular with grade 4/6 ejection systolic murmur over left sternal border. EXTREMITIES: Trace leg edema. LABORATORY DATA: Yesterday's hemoglobin and hematocrit 10.8 and 35.3, white count and platelet count were within normal limits. ASSESSMENT: 1. Bicuspid aortic valve with severe aortic stenosis and aortic insufficiency. 2. Paroxysmal atrial fibrillation. 3. Anemia. 4. Developmental delay. RECOMMENDATIONS: Continue current Lopressor 50 mg intravenously every 6 hours p.r.n. Continue Xarelto 20 mg once a day. Bin Gallagher MD
[2018-06-18] MEDS: Latanoprost 2.5 ml Opht Soln OU SCH (23:20)
[2018-06-19] MEDS: Pantoprazole 40 mg EC Tab PO SCH (05:55)
[2018-06-19] MEDS: Metoprolol 1 mg/ml Inj IVP PRN (06:35)
--- NOTE | 2018-06-19 08:45 | CP.PCM.PN ---
<Yolanda Martell - Last Filed: 06/19/18 19:51> Subjective - Date & Time of Evaluation Date of Evaluation: 06/19/18 Time of Evaluation: 16:38 - Subjective Subjective: Yolanda Martell, PGY-[address] Cassandra Vivas Ms. Wong was seen today, however was unable to verbally communicate. Most history was gathered from nursing and state tested nursing assistant. Overnight patient had no acute events however this AM she was agitated and refusing labs. Patient is constantly drinking coffee and asking for more. Spoke with handicapper harness racing today, she claims that the patient's father who is her medical proxy will be coming in tomorrow for a meeting in order to discuss goals of care. Objective - Vital Signs/Intake and Output Vital Signs (last 24 hours): Temp Pulse Resp BP Pulse Ox 97.5 F L 153 H 18 124/68 96 06/19/18 06:00 06/19/18 06:35 06/19/18 06:00 06/19/18 06:35 06/19/18 06:00 - Medications Medications: Current Medications Buspirone HCl (Buspar) 30 mg PO DAILY [facility] Last Admin: 06/18/18 09:53 Dose: 30 mg Clonazepam (Klonopin) 1 mg PO BID [facility] PRN Reason: Protocol Last Admin: 06/18/18 17:23 Dose: 1 mg Dorzolamide HCl (Trusopt) 0 ml OU TID [facility] Last Admin: 06/18/18 17:29 Dose: 1 drop Ferrous Gluconate (Fergon) 324 mg PO DAILY [facility] Last Admin: 06/18/18 09:53 Dose: 324 mg Fluoxetine HCl (Prozac) 10 mg PO DAILY [facility] Last Admin: 06/18/18 09:54 Dose: 10 mg Home Med (Home Med) 0 unit OU TID [facility] Last Admin: 06/18/18 17:29 Dose: 1 unit Latanoprost (Xalatan Opht) 0 ml OU HS [facility] Last Admin: 06/18/18 23:20 Dose: 2.5 ml Lorazepam (Ativan) 1 mg IVP Q6H PRN; Protocol PRN Reason: Anxiety Last Admin: 06/19/18 06:34 Dose: 1 mg Metoprolol Tartrate (Lopressor) 25 mg PO BID [facility] Last Admin: 06/18/18 17:27 Dose: Not Given Metoprolol Tartrate (Lopressor) 5 mg IVP Q6 PRN PRN Reason: Systolic Blood Pressure Last Admin: 06/19/18 06:35 Dose: 5 mg Metoprolol Tartrate (Lopressor) 12.5 mg PO BID [facility] Last Admin: 06/18/18 17:28 Dose: 12.5 mg Pantoprazole Sodium (Protonix Ec Tab) 40 mg PO 0600 [facility] Last Admin: 06/19/18 05:55 Dose: 40 mg Pilocarpine HCl (Isopto Carpine 1% Opht Soln) 0 ml OD QID [facility] Last Admin: 06/18/18 23:20 Dose: 1 drop Polyethylene Glycol (Miralax) 17 gm PO DAILY PRN PRN Reason: Constipation Rivaroxaban (Xarelto) 20 mg PO DAILY [facility] PRN Reason: Protocol Last Admin: 06/18/18 09:53 Dose: 20 mg Trazodone HCl (Desyrel) 100 mg PO HS [facility] Last Admin: 06/18/18 23:21 Dose: 100 mg - Labs Labs: 06/17/18 07:00 06/16/18 06:30 PT 19.5 SECONDS (9.4-12.5) H 06/13/18 01:25 INR 1.69 (0.93-1.08) H 06/13/18 01:25 APTT 35.8 Seconds (25.1-36.5) 06/13/18 01:25 - Constitutional Appears: Agitated - Head Exam Head Exam: ATRAUMATIC, NORMOCEPHALIC - Eye Exam Eye Exam: EOMI - ENT Exam ENT Exam: Mucous Membranes Moist - Neck Exam Neck Exam: Full ROM - Respiratory Exam Respiratory Exam: Clear to Ausculation Bilateral. absent: Rales, Rhonchi, Wheezes - Cardiovascular Exam Cardiovascular Exam: REGULAR RHYTHM, +S1, +S2 Additional comments: systolic ejection murmur heard best at left sternal border - GI/Abdominal Exam GI & Abdominal Exam: Soft. absent: Distended, Tenderness - Neurological Exam Neurological Exam: Alert, Awake, Normal Gait - Psychiatric Exam Psychiatric exam: Anxious - Skin Skin Exam: Normal Color Assessment and Plan - Assessment and Plan (Free Text) Assessment: Ms. Wong is a 47 year old female with a PMHx of significant for developmental delay, deafness, autism, congenital rubella syndrome, glaucoma, mitral regurgitation, aortic insufficiency, and atrial fibrillation anticoagulated w/ xarleto who was admitted for evaluation and treatment of exertional dyspnea, cyanosis, and cough. Plan: Exertional Dyspnea - resolved - Echocardiogram (06/13): LVEF 68%, aortic valve bicuspid, severe aortic regurg, severe valvular aortic stenosis, MR moderate - medical records from [facility] to be faxed - handicapper harness racing Celeste was spoken with over the phone today. Patient's father, Nathan, is the patient's health care proxy and will be coming in to the hospital tomorrow 06/20/18 to discuss goals of care in terms of cardiac disease. As per the handicapper harness racing, patient's father did not want any intervention when the patient was admitted in the past at [facility]; will discuss goals of care in further detail with father in person as he is deaf and unable to communicate over the phone. - Medical records from [facility] pending - Palliative care consulted to discuss goals of care - Cardiology Dr. Rg consulted- reccs appreciated Fever: - Tmax of 101.2 today 06/19 - Tylenol prn for temp - CXR 06/19: unremarkable - f/u blood cx, urine cx, procal, UA Hx of Atrial Fibrillation: - monitor on TELE - in light of tachycardia, patient started on Lopressor 50g po bid - Lopressor 5mg q6h ivp prn - Xarelto 20mg po qd for anticoagulation Constipation: - resolved - Pelvic US 06/13: constipation - given fleet oil enema as per recommendations of Dr. Darden Normocytic Anemia: - s/p 2U PRBC - Most likely chronic etiology- unknown baseline - continue home Fe pills - Irone studies as follows Iron: 21 TIBC: 322 %sat: 6 Ferritin: 14.2 B12: 510 Folate: 15.7 - Pelvic US (06/13): trace endometrial fluid - TVUS not done due to patient agitation - Bed Teacher Dr. Walker recommended f/u outpatient Deconditioning - physical therapy consulted, does not recommend services at this time Hx of Developmental Delay/ Psychiatric Disorder - agitated today, asking for multiple cups of coffee - current regimen: Buspirone 30mg QD - clonazepam 1mg BID - prozac 10mg QD - Trazadone 100mg HS - Psych on board- reccs appreciated GI ppx: Protonix DVT ppx: patient is ambulating and OOB to chair; on home med of Xarelto Diet: HHD Case discussed with attending Dr. Cassandra Vivas <Cassandra Vivas R - Last Filed: 06/20/18 08:02> Objective - Vital Signs/Intake and Output Vital Signs (last 24 hours): Temp Pulse Resp BP Pulse Ox 97.2 F L 98 H 18 95/65 L 92 L 06/20/18 00:01 06/20/18 06:00 06/20/18 00:01 06/20/18 00:01 06/20/18 00:01 - Medications Medications: Current Medications Acetaminophen (Tylenol 325mg Tab) 650 mg PO Q6H PRN PRN Reason: Fever >100.4 F Last Admin: 06/19/18 11:27 Dose: 650 mg Buspirone HCl (Buspar) 30 mg PO DAILY [facility] Last Admin: 06/19/18 10:15 Dose: 30 mg Clonazepam (Klonopin) 1 mg PO BID [facility] PRN Reason: Protocol Last Admin: 06/19/18 17:52 Dose: 1 mg Dorzolamide HCl (Trusopt) 0 ml OU TID [facility] Last Admin: 06/19/18 17:54 Dose: 2 drop Ferrous Gluconate (Fergon) 324 mg PO DAILY [facility] Last Admin: 06/19/18 10:15 Dose: 324 mg Fluoxetine HCl (Prozac) 10 mg PO DAILY [facility] Last Admin: 06/19/18 10:17 Dose: 10 mg Home Med (Home Med) 0 unit OU TID [facility] Last Admin: 06/19/18 17:53 Dose: 1 unit Ceftriaxone Sodium (Rocephin 1 Gram Ivpb) 1 gm in 100 mls @ 100 mls/hr IVPB DAILY [facility] PRN Reason: Protocol Latanoprost (Xalatan Opht) 0 ml OU HS [facility] Last Admin: 06/19/18 21:51 Dose: Not Given Lorazepam (Ativan) 1 mg IVP Q6H PRN; Protocol PRN Reason: Anxiety Last Admin: 06/20/18 04:51 Dose: 1 mg Metoprolol Tartrate (Lopressor) 5 mg IVP Q6 PRN PRN Reason: Systolic Blood Pressure Last Admin: 06/19/18 06:35 Dose: 5 mg Metoprolol Tartrate (Lopressor) 50 mg PO BRKDIN [facility] Last Admin: 06/19/18 17:52 Dose: 50 mg Pantoprazole Sodium (Protonix Ec Tab) 40 mg PO 0600 [facility] Last Admin: 06/20/18 05:56 Dose: Not Given Pilocarpine HCl (Isopto Carpine 1% Opht Soln) 0 ml OD QID [facility] Last Admin: 06/19/18 21:51 Dose: Not Given Polyethylene Glycol (Miralax) 17 gm PO DAILY PRN PRN Reason: Constipation Rivaroxaban (Xarelto) 20 mg PO DAILY [facility] PRN Reason: Protocol Last Admin: 06/19/18 10:17 Dose: 20 mg Trazodone HCl (Desyrel) 100 mg PO HS [facility] Last Admin: 06/19/18 21:51 Dose: Not Given - Labs Labs: 06/17/18 07:00 06/16/18 06:30 PT 19.5 SECONDS (9.4-12.5) H 06/13/18 01:25 INR 1.69 (0.93-1.08) H 06/13/18 01:25 APTT 35.8 Seconds (25.1-36.5) 06/13/18 01:25 Attending/Attestation - Attestation I have personally seen and examined this patient.: Yes I have fully participated in the care of the patient.: Yes I have reviewed all pertinent clinical information, including history, physical exam and plan: Yes Notes (Text): Patient seen and examined by me at 10:45AM 06/19/18 with resident. Case including HPI, physical exam, and assessment and plan discussed with resident. Agree with above with following additions/corrections. Patient is deaf and partially blind. Also with developmental delay. Unable to obtain review of systems from patient. Patient is on one to one. Per nurse, diarrhea resolved. Patient febrile today. Physical exam: Gen: Awake and alert sitting up in chair in no acute distress HEENT: Normocephalic atraumatic. Neck is supple. Unable to examine oral pharynx as patient is not opening mouth. Patient is deaf and partially blind Cardiovascular: Tachycardic S1, S2. Positive systolic murmur. No rubs or gallops appreciated Pulmonary: Normal respiratory effort. No rhonchi, rales or wheezing appreciated. Gastrointestinal: Soft, nontender, nondistended, positive bowel sounds all 4 quadrants, no guarding Musculoskeletal: Moves all extremities. Positive lower extremity edema Central nervous system: Unable to evaluate as patient is deaf and blind and not following commands Dermatologic: Skin warm and dry Assessment and plan: Patient is a 47-year-old female with past medical history significant for developmental delay, autism, congenital rubella syndrome, deafness, blindness, aortic insufficiency, atrial fibrillation maintained Xarelto, glaucoma, and mitral regurgitation that presented to the emergency room with exertional dyspnea, cyanosis, and cough. 1. Fever. Unclear etiology. Follow up chest xray, blood cultures, cbc, and urinalysis. Will hold off on antibiotics for now. Will need to start if spikes fever again or studies are positive for infection 2. Exertional dyspnea, cyanosis, and cough. Likely secondary to valvular disease vs anemia. ?diastolic CHF. Symptoms resolved. S/P 2 units PRBCs. Continue with O2 via nasal cannula as needed. Patient ambulating well. Continue Cardiology following, recommendations appreciated. 2. Anemia. Stool for occult blood negative. Pending blood work. H&H improved status post 2 units PRBC. Pelvic ultrasound showed trace endometrial fluid. Patient to have close outpatient follow up with manager of photography. Continue ferrous gluconate daily. 3. Constipation. Resolved. Miralax and colace held for now. Continue to monitor 4. Diarrhea. Resolved. Continue to hold miralax and Colace for now. 5. Paroxysmal Atrial Fibrillation. Currently in Sinus rhythm. Patient intermittently refusing PO medications. Continue Xarelto and Metoprolol. Cardiology following, recommendations appreciated 6. Severe aortic stenosis/aortic regurgitation. Seen on echo. Cardiology following, recommendations appreciated. [facility] contacted for records, pending consent. 7. Psychiatric disorder/Developemental Delay/Congenital Rubella Syndrome. Continue Buspar, Klonopin, prozac, and trazodone. Continue one to one. 8. Glaucoma/blindness. Continue home eye drops. 9. GI/DVT prophylaxis. Protonix and Xarelto. Discussed with patients critical care technician. Per patients critical care technician, health care proxy is patients father who is also deaf but will come to the hospital tomorrow. In the past, father has only wanted comfort care for patient, no intervention for aortic stenosis. Will follow up with father tomorrow to confirm.
[2018-06-19] MEDS: ALPHAGAN P 0.1% OU SCH ×3 (10:16→17:53)
[2018-06-19] MEDS: Pilocarpine 1% Opht (15ml) OD SCH ×4 (10:16→21:51)
[2018-06-19] MEDS: Dorzolamide 2% Opht Sol 10ml OU SCH ×3 (10:17→17:54)
--- NOTE | 2018-06-19 14:08 | RAD ---
Date of service: 06/19/2018 HISTORY: fever COMPARISON: 06/15/2018 FINDINGS: LUNGS: No consolidation. Probable thread-like discoid atelectasis and/or thread-like scarring left lung base -similar PLEURA: No significant pleural effusion identified, no pneumothorax apparent. CARDIOVASCULAR: Mild cardiomegaly-similar OSSEOUS STRUCTURES: Scoliosis -mid thoracic leftward convexity and generalized osteopenia VISUALIZED UPPER ABDOMEN: Normal. OTHER FINDINGS: None. IMPRESSION: No interval pathology noted
--- NOTE | 2018-06-19 16:50 | PN ---
Copied To: Yuriy Rg MD Attending MD: Yuriy Rg MD. DATE: 06/19/2018 CARDIOLOGY FOLLOWUP SUBJECTIVE: The patient is no longer dyspneic, is ambulating on the floor with intermittent episodes of tachycardia. PHYSICAL EXAMINATION: VITAL SIGNS: BP is 124/62 with the heart rate is again sinus tachycardia versus SVT. LABORATORY DATA: Echocardiogram reveals aortic stenosis. IMPRESSION: 1. Still awaiting report from [facility], which is still not available. 2. Critical aortic stenosis. 3. Dyspnea, which is now resolved. 4. Intermittent supraventricular tachycardia and palpitations and tachycardia. PLAN: Given these findings, we will discuss with her primary care team about talking the care to her healthcare proxy to see how far we are going to go in terms of her cardiac disease. Yuriy Rg MD
[2018-06-19 20:12] LABS: URINE APPEARANCE CLEAR (CLEAR); URINE BILIRUBIN NEGATIVE (NEGATIVE); URINE BLOOD LARGE (NEGATIVE); URINE COLOR LIGHT YELLOW (YELLOW); URINE GLUCOSE (UA) NEGATIVE (NEGATIVE); URINE LEUKOCYTE ESTERASE MODERATE Leu/uL (NEGATIVE); URINE PROTEIN NEGATIVE mg/dL (<30 mg/dL); URINE UROBILINOGEN 0.2 E.U./dL (<1 E.U./dL)
[2018-06-19 20:20] LABS: URINE BACTERIA MANY (NEG); URINE RBC 15 - 20 /hpf (0-2)
[2018-06-19] MEDS: Latanoprost 2.5 ml Opht Soln OU SCH (21:51)
[2018-06-20] MEDS: Pantoprazole 40 mg EC Tab PO SCH (05:56)
--- NOTE | 2018-06-20 06:58 | CP.PCM.PN ---
<Fernanda Casillas - Last Filed: 06/20/18 15:38> Subjective - Date & Time of Evaluation Date of Evaluation: 06/20/18 Time of Evaluation: 15:17 - Subjective Subjective: Yolanda Martell PGY-[address] Cassandra Vivas [facility]. Due to her condition, verbal communication was not achieved and most history was gathered from nursing and nursing aides. They reported that the pt was very agitated over night, pacing in and out of her room and seeking coffee. She did not sleep over night, and was given ativan in the morning. Pt's father and brother were present today for a family of meeting to discuss goals of care and discharge. Her father is Ms. Wong's health care proxy. Recommendations of stent placement in the future were communicated to the family , but the father refused this. He did however sign a consent form to [facility]. The father did not agree to surgical intervention at this time and wishes to continue with medical treatment at home for the patient. Objective - Vital Signs/Intake and Output Vital Signs (last 24 hours): Temp Pulse Resp BP Pulse Ox 98 F 133 H 20 126/100 H 92 L 06/20/18 12:00 06/20/18 12:00 06/20/18 12:00 06/20/18 12:00 06/20/18 00:01 - Medications Medications: Current Medications Acetaminophen (Tylenol 325mg Tab) 650 mg PO Q6H PRN PRN Reason: Fever >100.4 F Last Admin: 06/19/18 11:27 Dose: 650 mg Buspirone HCl (Buspar) 30 mg PO DAILY [facility] Last Admin: 06/20/18 09:05 Dose: 30 mg Clonazepam (Klonopin) 1 mg PO BID [facility] PRN Reason: Protocol Last Admin: 06/20/18 09:05 Dose: 1 mg Dorzolamide HCl (Trusopt) 0 ml OU TID [facility] Last Admin: 06/20/18 13:38 Dose: 1 drop Ferrous Gluconate (Fergon) 324 mg PO DAILY [facility] Last Admin: 06/20/18 11:40 Dose: Not Given Fluoxetine HCl (Prozac) 10 mg PO DAILY [facility] Last Admin: 06/20/18 09:05 Dose: 10 mg Home Med (Home Med) 0 unit OU TID [facility] Last Admin: 06/20/18 13:38 Dose: 1 unit Ceftriaxone Sodium (Rocephin 1 Gram Ivpb) 1 gm in 100 mls @ 100 mls/hr IVPB DAILY [facility] PRN Reason: Protocol Last Admin: 06/20/18 10:24 Dose: Not Given Latanoprost (Xalatan Opht) 0 ml OU HS [facility] Last Admin: 06/19/18 21:51 Dose: Not Given Lorazepam (Ativan) 1 mg IVP Q6H PRN; Protocol PRN Reason: Anxiety Last Admin: 06/20/18 11:34 Dose: 1 mg Metoprolol Tartrate (Lopressor) 5 mg IVP Q6 PRN PRN Reason: Systolic Blood Pressure Last Admin: 06/20/18 11:33 Dose: 5 mg Metoprolol Tartrate (Lopressor) 50 mg PO BRKDIN [facility] Last Admin: 06/20/18 09:04 Dose: 50 mg Pantoprazole Sodium (Protonix Ec Tab) 40 mg PO 0600 [facility] Last Admin: 06/20/18 05:56 Dose: Not Given Pilocarpine HCl (Isopto Carpine 1% Opht Soln) 0 ml OD QID [facility] Last Admin: 06/20/18 13:39 Dose: 1 drop Polyethylene Glycol (Miralax) 17 gm PO DAILY [facility] PRN Reason: Constipation Rivaroxaban (Xarelto) 20 mg PO DAILY [facility] PRN Reason: Protocol Last Admin: 06/20/18 11:41 Dose: Not Given Trazodone HCl (Desyrel) 100 mg PO HS [facility] Last Admin: 06/19/18 21:51 Dose: Not Given - Labs Labs: 06/17/18 07:00 06/16/18 06:30 PT 19.5 SECONDS (9.4-12.5) H 06/13/18 01:25 INR 1.69 (0.93-1.08) H 06/13/18 01:25 APTT 35.8 Seconds (25.1-36.5) 06/13/18 01:25 - Constitutional Appears: Well, No Acute Distress - Head Exam Head Exam: ATRAUMATIC, NORMOCEPHALIC - Eye Exam Eye Exam: EOMI - ENT Exam ENT Exam: Mucous Membranes Moist - Neck Exam Neck Exam: Full ROM - Respiratory Exam Respiratory Exam: Clear to Ausculation Bilateral, NORMAL BREATHING PATTERN. absent: Rales, Rhonchi, Wheezes - Cardiovascular Exam Cardiovascular Exam: REGULAR RHYTHM, +S1, +S2 Additional comments: systolic ejection murmur best heard at R sternal border. - GI/Abdominal Exam GI & Abdominal Exam: Soft, Normal Bowel Sounds. absent: Distended, Firm - Extremities Exam Extremities Exam: Normal Inspection. absent: Pedal Edema - Back Exam Back Exam: NORMAL INSPECTION - Neurological Exam Neurological Exam: Alert, Awake Assessment and Plan - Assessment and Plan (Free Text) Assessment: Ms. Wong is a 47 year old female with a PMHx of significant for developmental delay, deafness, autism, congenital rubella syndrome, glaucoma, mitral regurgitation, aortic insufficiency, and atrial fibrillation anticoagulated w/ xarleto who was admitted for evaluation and treatment of exertional dyspnea, cyanosis, and cough. Plan: Exertional Dyspnea - resolved - Echocardiogram (06/13): LVEF 68%, aortic valve bicuspid, severe aortic regurg, severe valvular aortic stenosis, MR moderate - Patient's father, Nathan, is the patient's health care proxy and was present today along with patient's brother to discuss goals of care in terms of cardiac disease. Father and brother are both deaf, communication was achieved through writing. He did not agree to future surgical intervention for the pt. - consent obtained from pt's father for medical records from [facility] if necessary - Palliative care consulted to discuss goals of care - Cardiology Dr. Rg consulted- no longer requires medical records, recommends Lopressor 25mg bid Fever: - resolved, temp today 98 - Tmax of 101.2 on 06/19 - Rocephin 1mg - not given today, pt refused - Tylenol prn for temp - CXR 06/19: unremarkable - UA (06/19): mod leuk esterase, large blood - f/u blood cx, urine cx, procal Hx of Atrial Fibrillation: - continue to monitor on TELE - due to hypotension, Lopressor adjusted to 25mg bid. - Lopressor 5mg q6h ivp prn - Xarelto 20mg po qd for anticoagulation - not given today, pt refused Constipation: - resolved - Pelvic US 06/13: constipation - given fleet oil enema as per recommendations of Dr. Darden Normocytic Anemia: - s/p 2U PRBC - Most likely chronic etiology- unknown baseline - continue home Fe pills - not given today, pt refused - Iron studies as follows Iron: 21 TIBC: 322 %sat: 6 Ferritin: 14.2 B12: 510 Folate: 15.7 - Pelvic US (06/13): trace endometrial fluid - TVUS not done due to patient agitation - Data Warehousing Engineer Dr. Walker recommended f/u outpatient Deconditioning - physical therapy consulted, does not recommend services at this time Hx of Developmental Delay/ Psychiatric Disorder - agitated overnight, asking for multiple cups of coffee and not sleeping - current regimen: Buspirone 30mg QD - clonazepam 1mg BID - prozac 10mg QD - Trazadone 100mg HS - Psych on board- reccs appreciated GI ppx: Protonix - not given today, pt refused DVT ppx: patient is ambulating and OOB to chair; on home med of Xarelto - not given today, pt refused Diet: HHD Case discussed with attending Dr. Cassandra Vivas <Yolanda Martell - Last Filed: 06/20/18 18:59> Objective - Vital Signs/Intake and Output Vital Signs (last 24 hours): Temp Pulse Resp BP Pulse Ox 97.2 F L 98 H 18 95/65 L 92 L 06/20/18 00:01 06/20/18 06:00 06/20/18 00:01 06/20/18 00:01 06/20/18 00:01 - Medications Medications: Current Medications Acetaminophen (Tylenol 325mg Tab) 650 mg PO Q6H PRN PRN Reason: Fever >100.4 F Last Admin: 06/19/18 11:27 Dose: 650 mg Buspirone HCl (Buspar) 30 mg PO DAILY [facility] Last Admin: 06/19/18 10:15 Dose: 30 mg Clonazepam (Klonopin) 1 mg PO BID [facility] PRN Reason: Protocol Last Admin: 06/19/18 17:52 Dose: 1 mg Dorzolamide HCl (Trusopt) 0 ml OU TID [facility] Last Admin: 06/19/18 17:54 Dose: 2 drop Ferrous Gluconate (Fergon) 324 mg PO DAILY [facility] Last Admin: 06/19/18 10:15 Dose: 324 mg Fluoxetine HCl (Prozac) 10 mg PO DAILY [facility] Last Admin: 06/19/18 10:17 Dose: 10 mg Home Med (Home Med) 0 unit OU TID [facility] Last Admin: 06/19/18 17:53 Dose: 1 unit Ceftriaxone Sodium (Rocephin 1 Gram Ivpb) 1 gm in 100 mls @ 100 mls/hr IVPB DAILY [facility] PRN Reason: Protocol Latanoprost (Xalatan Opht) 0 ml OU HS [facility] Last Admin: 06/19/18 21:51 Dose: Not Given Lorazepam (Ativan) 1 mg IVP Q6H PRN; Protocol PRN Reason: Anxiety Last Admin: 06/20/18 04:51 Dose: 1 mg Metoprolol Tartrate (Lopressor) 5 mg IVP Q6 PRN PRN Reason: Systolic Blood Pressure Last Admin: 06/19/18 06:35 Dose: 5 mg Metoprolol Tartrate (Lopressor) 50 mg PO BRKDIN [facility] Last Admin: 06/19/18 17:52 Dose: 50 mg Pantoprazole Sodium (Protonix Ec Tab) 40 mg PO 0600 [facility] Last Admin: 06/20/18 05:56 Dose: Not Given Pilocarpine HCl (Isopto Carpine 1% Opht Soln) 0 ml OD QID [facility] Last Admin: 06/19/18 21:51 Dose: Not Given Polyethylene Glycol (Miralax) 17 gm PO DAILY [facility]N PRN Reason: Constipation Rivaroxaban (Xarelto) 20 mg PO DAILY [facility] PRN Reason: Protocol Last Admin: 06/19/18 10:17 Dose: 20 mg Trazodone HCl (Desyrel) 100 mg PO HS [facility] Last Admin: 06/19/18 21:51 Dose: Not Given - Labs Labs: 06/17/18 07:00 06/16/18 06:30 PT 19.5 SECONDS (9.4-12.5) H 06/13/18 01:25 INR 1.69 (0.93-1.08) H 06/13/18 01:25 APTT 35.8 Seconds (25.1-36.5) 06/13/18 01:25 <Vivas,Cassandra R - Last Filed: 06/22/18 07:33> Objective - Vital Signs/Intake and Output Vital Signs (last 24 hours): Temp Pulse Resp BP Pulse Ox 97.6 F 142 H 20 130/83 97 06/21/18 06:00 06/21/18 21:36 06/21/18 21:36 06/21/18 21:36 06/21/18 21:36 Intake and Output: 06/22/18 06/22/18 06:59 18:59 Intake Total 1380 Balance 1380 - Medications Medications: Current Medications Acetaminophen (Tylenol 325mg Tab) 650 mg PO Q6H PRN PRN Reason: Fever >100.4 F Last Admin: 06/19/18 11:27 Dose: 650 mg Buspirone HCl (Buspar) 30 mg PO DAILY [facility] Last Admin: 06/21/18 09:33 Dose: 30 mg Clonazepam (Klonopin) 1 mg PO BID [facility] PRN Reason: Protocol Last Admin: 06/21/18 18:51 Dose: 1 mg Dorzolamide HCl (Trusopt) 0 ml OU TID [facility] Last Admin: 06/21/18 18:52 Dose: Not Given Ferrous Gluconate (Fergon) 324 mg PO DAILY [facility] Last Admin: 06/21/18 09:33 Dose: 324 mg Fluoxetine HCl (Prozac) 10 mg PO DAILY [facility] Last Admin: 06/21/18 09:35 Dose: 10 mg Home Med (Home Med) 0 unit OU TID [facility] Last Admin: 06/21/18 18:50 Dose: Not Given Ceftriaxone Sodium (Rocephin 1 Gram Ivpb) 1 gm in 100 mls @ 100 mls/hr IVPB DAILY [facility] PRN Reason: Protocol Last Admin: 06/21/18 09:35 Dose: Not Given Latanoprost (Xalatan Opht) 0 ml OU HS [facility] Last Admin: 06/20/18 21:48 Dose: Not Given Lorazepam (Ativan) 1 mg IVP Q6H PRN; Protocol PRN Reason: Anxiety Last Admin: 06/20/18 21:43 Dose: 1 mg Metoprolol Tartrate (Lopressor) 5 mg IVP Q6 PRN PRN Reason: Systolic Blood Pressure Last Admin: 06/20/18 11:33 Dose: 5 mg Metoprolol Tartrate (Lopressor) 25 mg PO BID [facility] Last Admin: 06/21/18 18:51 Dose: Not Given Pantoprazole Sodium (Protonix Ec Tab) 40 mg PO 0600 [facility] Last Admin: 06/22/18 05:34 Dose: 40 mg Pilocarpine HCl (Isopto Carpine 1% Opht Soln) 0 ml OD QID [facility] Last Admin: 06/21/18 18:51 Dose: Not Given Polyethylene Glycol (Miralax) 17 gm PO DAILY [facility] PRN Reason: Constipation Rivaroxaban (Xarelto) 20 mg PO DAILY [facility] PRN Reason: Protocol Last Admin: 06/21/18 09:36 Dose: 20 mg Trazodone HCl (Desyrel) 100 mg PO HS [facility] Last Admin: 06/21/18 21:09 Dose: 100 mg - Labs Labs: 06/17/18 07:00 06/16/18 06:30 PT 19.5 SECONDS (9.4-12.5) H 06/13/18 01:25 INR 1.69 (0.93-1.08) H 06/13/18 01:25 APTT 35.8 Seconds (25.1-36.5) 06/13/18 01:25 Attending/Attestation - Attestation I have personally seen and examined this patient.: Yes I have fully participated in the care of the patient.: Yes I have reviewed all pertinent clinical information, including history, physical exam and plan: Yes Notes (Text): Patient seen and examined by me at 12:20PM 06/20/18 with resident. Case including HPI, physical exam, and assessment and plan discussed with resident. Agree with above with following additions/corrections. Patient is deaf and has developmental delay. Patient's home pipe cleaning machine operator at bedside. Per patient's home pipe cleaning machine operator, patient does normally take her medications at home when given to her. Patient has been refusing and spitting out her medications here. Per patient's pipe cleaning machine operator, patient only understands the sign language that the use in the home which is different from the normal sign language. Unable to obtain review of systems from patient. Patient is on one to one. Patient is afebrile today. She was agitated overnight and was in and out of her room. Patient has been asking for coffee. Physical exam: Gen: Awake and alert sitting up in chair in no acute distress HEENT: Normocephalic atraumatic. Neck is supple. Unable to examine oral pharynx as patient is not opening mouth. Patient is deaf. Cardiovascular: Tachycardic S1, S2. Positive systolic murmur. No rubs or gallops appreciated Pulmonary: Normal respiratory effort. No rhonchi, rales or wheezing appreciated. Gastrointestinal: Soft, nontender, nondistended, positive bowel sounds all 4 quadrants, no guarding Musculoskeletal: Moves all extremities. Positive lower extremity edema Central nervous system: Unable to evaluate as patient is deaf not following commands Dermatologic: Skin warm and dry Assessment and plan: Patient is a 47-year-old female with past medical history significant for developmental delay, autism, congenital rubella syndrome, deafness, blindness, aortic insufficiency, atrial fibrillation maintained Xarelto, glaucoma, and mitral regurgitation that presented to the emergency room with exertional dyspnea, cyanosis, and cough. 1. Fever secondary to UTI. Urine culture pending. Fever resolved. Started on Rocephin 1 g IV piggyback daily. Chest x-ray did not show any acute process. Patient refused blood work. 2. Exertional dyspnea, cyanosis, and cough. Likely secondary to valvular disease and aortic stenosis vs anemia. ?diastolic CHF. Symptoms resolved. S/P 2 units PRBCs. Continue with O2 via nasal cannula as needed. Patient ambulating well. Cardiology following, recommendations appreciated. 2. Anemia. Stool for occult blood negative. H&H improved status post 2 units PRBC. Pelvic ultrasound showed trace endometrial fluid. Patient to have close outpatient follow up with gas pit worker. Continue ferrous gluconate daily. Patient has been refusing blood work 3. Constipation. Resolved. Miralax and colace held for now. Continue to monitor 4. Diarrhea. Resolved. Continue to hold miralax and Colace for now. 5. Paroxysmal Atrial Fibrillation. Currently in Sinus rhythm. Patient intermittently refusing PO medications. Continue Xarelto and Metoprolol. Metoprolol dose decreased to 25 mg by mouth twice a day as discussed with cardiology. Cardiology following, recommendations appreciated 6. Severe aortic stenosis/aortic regurgitation. Seen on echo. Cardiology following, recommendations appreciated. Discussed with patient's father, patient 's healthcare proxy. They do not want any aggressive treatment or surgeries. Patient's father wants conservative management. 7. Psychiatric disorder/Developemental Delay/Congenital Rubella Syndrome. Continue Buspar, Klonopin, prozac, and trazodone. Continue one to one. 8. Glaucoma/blindness. Continue home eye drops. 9. GI/DVT prophylaxis. Protonix and Xarelto. Case was discussed in detail with the patient's caregiver and father at bedside regarding current diagnosis and treatment plan
[2018-06-20] MEDS: cefTRIAXone 1 gm 1 GM/100 ML BAG IVPB SCH ×2 (09:05→10:24)
[2018-06-20] MEDS ORDERED: cefTRIAXone 1 gm 1 GM/100 ML BAG IVPB SCH (10:00)
--- NOTE | 2018-06-20 11:11 | CP.PCM.CON ---
History of Present Illness - History of Present Illness History of Present Illness: Palliative consult note for Emily Montenegro Reason for consult: goal of care Ms Wong is a 47 y/o Female with PMHX of developmental delay, congenital rubella, deafness, autism, glaucoma, mitral regurgitation, aortic insufficiency , and a-fib on xarelto whom initially presented [place] [facility] due to dyspnea of exertion and shortness of breath. Patient was noted to have symptomatic anemia with hgb of 7.8-8s. Patient's last lab was obtained from patient's primary care doctor, and as per the record patient's last hgb was 14 in January 2018. Patient was transfused 2 units of prbc, improving patient's symptoms. In addition, patient underwent cardiac work up and was found to have bicuspid aortic valve with severe aortic stenosis and regurgitation. Credit Front Office Developer evaluated patient, awaiting report from [facility] for decisions. Patient is deaf and autistic, lives in a [place] [facility]. Patient's father and brother are also deaf, and doesn't reside with the patient. Palliative is being consulted for goals of care, and advance directives. Mrs Emily Montenegro had a lengthy conversation with Celeste Zamora, the sponsored dependent from the [place] [facility], yesterday and she mentioned patient's father is not interested in any aggressive measures in terms of patient's cardiac conditions. The importance of advance directives was discussed with Celeste, however Patient's father is the decision maker. Furthermore, patient development hyperthermia and is currently being worked up for SIRS/sepsis. PMHx: Developmental delay, deafness, autism, congenital rubella syndrome, glaucoma, mitral regurgitation, aortic insufficiency, atrial fibrillation on xarelto. PSHx: heart surgery FMHx: Mother , was deaf, mother and brother are deaf Social: Lives in [place] [facility] [place], able to ambulate unassisted. Home meds: please chart for full medication list. Allergy: bee venom, NSAIDS. Review of Systems - Review of Systems Review of Systems: Limited due to mental status, otherwise not in distress, no complaints of pain, no diaphoresis, no dyspnea noted, nodded no to chest pain, abdominal pain, able to eat lunch, and no complaints of nausea. Past Patient History - Tetanus Immunizations Tetanus Immunization: Unknown - Past Social History Smoking Status: Never Smoked Alcohol: None Drugs: Denies Home Situation {Lives}: Other (skilled nursing.) - CARDIAC Hx Cardiac Disorders: Yes - NEUROLOGICAL Other/Comment: autism, congential rubella syndrome - HEENT Hx HEENT Problems: Yes Hx Blind: Yes Hx Deafness: Yes Hx Glaucoma: Yes - MUSCULOSKELETAL/RHEUMATOLOGICAL Hx Falls: Yes - GENITOURINARY/GYNECOLOGICAL Hx Genitourinary Disorders: Yes (neurogenic bladder) - PSYCHIATRIC Hx Substance Use: No - SURGICAL HISTORY Hx Surgeries: Yes (open heart) Meds Allergies/Adverse Reactions: Allergies Allergy/AdvReac Type Severity Reaction Status Date / Time bee venom protein (honey bee) AdvReac ANAPHYLAXIS Verified 06/13/18 14:09 NSAIDS (Non-Steroidal AdvReac NAUSEA Verified 06/13/18 14:09 Anti-Inflamma - Medications Medications: Current Medications Acetaminophen (Tylenol 325mg Tab) 650 mg PO Q6H PRN PRN Reason: Fever >100.4 F Last Admin: 06/19/18 11:27 Dose: 650 mg Buspirone HCl (Buspar) 30 mg PO DAILY [facility] Last Admin: 06/20/18 09:05 Dose: 30 mg Clonazepam (Klonopin) 1 mg PO BID [facility] PRN Reason: Protocol Last Admin: 06/20/18 09:05 Dose: 1 mg Dorzolamide HCl (Trusopt) 0 ml OU TID [facility] Last Admin: 06/19/18 17:54 Dose: 2 drop Ferrous Gluconate (Fergon) 324 mg PO DAILY [facility] Last Admin: 06/19/18 10:15 Dose: 324 mg Fluoxetine HCl (Prozac) 10 mg PO DAILY [facility] Last Admin: 06/20/18 09:05 Dose: 10 mg Home Med (Home Med) 0 unit OU TID [facility] Last Admin: 06/19/18 17:53 Dose: 1 unit Ceftriaxone Sodium (Rocephin 1 Gram Ivpb) 1 gm in 100 mls @ 100 mls/hr IVPB DAILY [facility] PRN Reason: Protocol Last Admin: 06/20/18 10:24 Dose: Not Given Latanoprost (Xalatan Opht) 0 ml OU HS [facility] Last Admin: 06/19/18 21:51 Dose: Not Given Lorazepam (Ativan) 1 mg IVP Q6H PRN; Protocol PRN Reason: Anxiety Last Admin: 06/20/18 04:51 Dose: 1 mg Metoprolol Tartrate (Lopressor) 5 mg IVP Q6 PRN PRN Reason: Systolic Blood Pressure Last Admin: 06/19/18 06:35 Dose: 5 mg Metoprolol Tartrate (Lopressor) 50 mg PO BRKDIN [facility] Last Admin: 06/20/18 09:04 Dose: 50 mg Pantoprazole Sodium (Protonix Ec Tab) 40 mg PO 0600 [facility] Last Admin: 06/20/18 05:56 Dose: Not Given Pilocarpine HCl (Isopto Carpine 1% Opht Soln) 0 ml OD QID [facility] Last Admin: 06/19/18 21:51 Dose: Not Given Polyethylene Glycol (Miralax) 17 gm PO DAILY [facility] PRN Reason: Constipation Rivaroxaban (Xarelto) 20 mg PO DAILY [facility] PRN Reason: Protocol Last Admin: 06/19/18 10:17 Dose: 20 mg Trazodone HCl (Desyrel) 100 mg PO HS [facility] Last Admin: 06/19/18 21:51 Dose: Not Given Physical Exam - Constitutional Appears: No Acute Distress, Older Than Stated Age, Chronically Ill - Head Exam Head Exam: ATRAUMATIC, NORMAL INSPECTION, NORMOCEPHALIC - Eye Exam Additional comments: Eyes: right sided with mild chronic erythema, and watery discharge. Normal eyes on the left. - ENT Exam ENT Exam: Mucous Membranes Moist - Neck Exam Neck exam: Positive for: Normal Inspection - Respiratory Exam Respiratory Exam: Clear to Auscultation Bilateral, NORMAL BREATHING PATTERN. absent: Rales, Rhonchi, Wheezes, Respiratory Distress, Stridor - Cardiovascular Exam Cardiovascular Exam: Diastolic murmur, REGULAR RHYTHM, +S1, +S2, Systolic Murmur - GI/Abdominal Exam GI & Abdominal Exam: Normal Bowel Sounds, Soft. absent: Distended, Tenderness - Extremities Exam Extremities exam: Positive for: normal inspection - Back Exam Back exam: NORMAL INSPECTION - Neurological Exam Additional comments: Mute and deaf, otherwise alert to person. - Psychiatric Exam Psychiatric exam: Flat Affect - Skin Skin Exam: Dry, Warm Results - Vital Signs Recent Vital Signs: Last Vital Signs Temp 97.2 F L 06/20/18 00:01 Pulse 85 06/20/18 09:04 Resp 18 06/20/18 00:01 BP 116/64 06/20/18 09:04 Pulse Ox 92 L 06/20/18 00:01 - Labs Result Diagrams: 06/17/18 07:00 06/16/18 06:30 Labs: Laboratory Results - last 24 hr 06/19/18 20:07 Urine Color Light yellow Urine Appearance Clear Urine pH 6.0 Ur Specific [place] <= 1.005 Urine Protein Negative Urine Glucose (UA) Negative Urine Ketones Negative Urine Blood Large H Urine Nitrate Negative Urine Bilirubin Negative Urine Urobilinogen 0.2 Ur Leukocyte Esterase Moderate H Urine RBC 15 - 20 Urine WBC 10 - 15 Ur Epithelial Cells 4 - 5 Urine Bacteria Many Assessment & Plan - Assessment and Plan (Free Text) Assessment: 47 y/o Female with PMHX of developmental delay, congenital rubella, deafness, autism, glaucoma, mitral regurgitation, aortic insufficiency, and a-fib on xarelto presented with dyspnea on exertion, treated for symptomatic anemia s/p 2 units of prbc transfusion. Patient was found to have severe valvular disease. Palliative is consulted for goal of care and advance directives. Plan: Goal of care discussion: Had extensive discussion with the father, Mr Judith Evans at bedside, via the science interpreter Celeste, father understands the ramifications of DNI/DNR, and father signed the POLST form. Symptomatic anemia: s/p 2 units of prbc, management as per medical team. Aortic insufficiency and Severe Aortic stenosis- patient's father doesn't want intervention Sirs r/o sepsis- on abx as per primary. Afib- on xarelto Developmental and psych disorder: continue with ativan prn, buspar, klonopin, prozac, trozodone. On ppi for gi prophylaxis. Patient seen, examined and case discussed with Merle Montenegro. - Date & Time Date: 06/20/18 Time: 16:00
[2018-06-20] MEDS: Metoprolol 1 mg/ml Inj IVP PRN (11:33)
[2018-06-20] MEDS: ALPHAGAN P 0.1% OU SCH ×2 (11:40→13:38)
[2018-06-20] MEDS: Pilocarpine 1% Opht (15ml) OD SCH ×3 (11:40→21:48)
[2018-06-20] MEDS: Dorzolamide 2% Opht Sol 10ml OU SCH ×2 (11:41→13:38)
--- NOTE | 2018-06-20 18:52 | PN ---
Copied To: Yuriy Rg MD Attending MD: Yuriy Rg MD DATE: 06/20/2018 CARDIOLOGY FOLLOWUP SUBJECTIVE: The patient is running around, but refused to take her pills. According to her primary care doctor, her healthcare proxy decided no invasive procedures should be done. Her aortic valve disease was noted in the . PHYSICAL EXAMINATION: VITAL SIGNS: Blood pressure 126/100, patient varies from heart rate of 85 to 130 during SVT. NECK: Negative JVD. LUNGS: Without rales. HEART: Reveals S1, S2. EXTREMITIES: Without edema. LABORATORY DATA: Hemoglobin is 10.8. Chemistries, BUN and creatinine unremarkable. IMPRESSION: 1. Aortic stenosis. 2. Learning disability. 3. Recurrent supraventricular tachycardia. 4. The patient's refusal for taking medications. PLAN: Given these findings, we changed her beta-shey to a lower dose. We will discontinue telemetry today. Yuriy Rg MD
[2018-06-20] MEDS: Latanoprost 2.5 ml Opht Soln OU SCH (21:48)
[2018-06-21] MEDS: Pantoprazole 40 mg EC Tab PO SCH (05:01)
--- NOTE | 2018-06-21 07:29 | CP.PCM.PN ---
<Yolanda Martell - Last Filed: 06/21/18 13:35> Subjective - Date & Time of Evaluation Date of Evaluation: 06/21/18 Time of Evaluation: 13:48 - Subjective Subjective: Yolanda Martell PGY1 Progress Note for Dr. Cassandra Vivas Ms. Wong was examined at bedside this morning. She was resting comfortably in bed. Overnight events were reported from nurses and aides, as the pt is nonverbal. Staff reported agitation over night, with pacing in and out of room and requesting coffee. Pt removed IV access and refused several PO meds as well as AM labs. Objective - Vital Signs/Intake and Output Vital Signs (last 24 hours): Temp Pulse Resp BP Pulse Ox 97.6 F 111 H 17 104/73 95 06/21/18 06:00 06/21/18 06:00 06/21/18 06:00 06/21/18 06:00 06/21/18 06:00 - Medications Medications: Current Medications Acetaminophen (Tylenol 325mg Tab) 650 mg PO Q6H PRN PRN Reason: Fever >100.4 F Last Admin: 06/19/18 11:27 Dose: 650 mg Buspirone HCl (Buspar) 30 mg PO DAILY [facility] Last Admin: 06/20/18 09:05 Dose: 30 mg Clonazepam (Klonopin) 1 mg PO BID [facility] PRN Reason: Protocol Last Admin: 06/20/18 18:09 Dose: 1 mg Dorzolamide HCl (Trusopt) 0 ml OU TID [facility] Last Admin: 06/20/18 13:38 Dose: 1 drop Ferrous Gluconate (Fergon) 324 mg PO DAILY [facility] Last Admin: 06/20/18 11:40 Dose: Not Given Fluoxetine HCl (Prozac) 10 mg PO DAILY [facility] Last Admin: 06/20/18 09:05 Dose: 10 mg Home Med (Home Med) 0 unit OU TID [facility] Last Admin: 06/20/18 13:38 Dose: 1 unit Ceftriaxone Sodium (Rocephin 1 Gram Ivpb) 1 gm in 100 mls @ 100 mls/hr IVPB DAILY [facility] PRN Reason: Protocol Last Admin: 06/20/18 10:24 Dose: Not Given Latanoprost (Xalatan Opht) 0 ml OU HS [facility] Last Admin: 06/20/18 21:48 Dose: Not Given Lorazepam (Ativan) 1 mg IVP Q6H PRN; Protocol PRN Reason: Anxiety Last Admin: 06/20/18 21:43 Dose: 1 mg Metoprolol Tartrate (Lopressor) 5 mg IVP Q6 PRN PRN Reason: Systolic Blood Pressure Last Admin: 06/20/18 11:33 Dose: 5 mg Metoprolol Tartrate (Lopressor) 25 mg PO BID [facility] Last Admin: 06/20/18 18:09 Dose: 25 mg Pantoprazole Sodium (Protonix Ec Tab) 40 mg PO 0600 [facility] Last Admin: 06/21/18 05:01 Dose: Not Given Pilocarpine HCl (Isopto Carpine 1% Opht Soln) 0 ml OD QID [facility] Last Admin: 06/20/18 21:48 Dose: Not Given Polyethylene Glycol (Miralax) 17 gm PO DAILY PRN PRN Reason: Constipation Rivaroxaban (Xarelto) 20 mg PO DAILY [facility] PRN Reason: Protocol Last Admin: 06/20/18 11:41 Dose: Not Given Trazodone HCl (Desyrel) 100 mg PO HS [facility] Last Admin: 06/20/18 21:48 Dose: 100 mg - Labs Labs: 06/17/18 07:00 06/16/18 06:30 PT 19.5 SECONDS (9.4-12.5) H 06/13/18 01:25 INR 1.69 (0.93-1.08) H 06/13/18 01:25 APTT 35.8 Seconds (25.1-36.5) 06/13/18 01:25 - Constitutional Appears: Well, No Acute Distress - Head Exam Head Exam: ATRAUMATIC, NORMOCEPHALIC - Eye Exam Eye Exam: EOMI - ENT Exam ENT Exam: Mucous Membranes Moist - Neck Exam Neck Exam: Full ROM - Respiratory Exam Respiratory Exam: Clear to Ausculation Bilateral, NORMAL BREATHING PATTERN - Cardiovascular Exam Cardiovascular Exam: REGULAR RHYTHM, +S1, +S2 Additional comments: systolic ejection murmur best heard at right sternal border - GI/Abdominal Exam GI & Abdominal Exam: Soft, Normal Bowel Sounds. absent: Distended, Guarding, Tenderness - Neurological Exam Neurological Exam: Alert, Awake - Skin Skin Exam: Normal Color Assessment and Plan - Assessment and Plan (Free Text) Assessment: Ms. Wong is a 47 year old female with a PMHx of significant for developmental delay, deafness, autism, congenital rubella syndrome, glaucoma, mitral regurgitation, aortic insufficiency, and atrial fibrillation anticoagulated w/ xarleto who was admitted for evaluation and treatment of exertional dyspnea, cyanosis, and cough. Plan: Exertional Dyspnea - resolved - Echocardiogram (06/13): LVEF 68%, aortic valve bicuspid, severe aortic regurg, severe valvular aortic stenosis, MR moderate - Patient's father, Nathan, is the patient's health care proxy and was present yesterday along with patient's brother to discuss goals of care in terms of cardiac disease. Father and brother are both deaf, communication was achieved through writing. He did not agree to future surgical intervention for the pt. - consent obtained from pt's father for medical records from [facility] and [facility] if necessary - Palliative care on board, had meeting with father as well and obtained signed POLST from him - Cardiology Dr. Rg on board no longer requires medical records, continue Lopressor 25mg bid Fever: - resolved, temp today 97.6 - Tmax of 101.2 on 06/19 - Rocephin 1mg - not given today, pt took out IV access and refused - Tylenol prn for temp - CXR 06/19: unremarkable - UA (06/19): mod leuk esterase, large blood - UCx: Gram + cocci >100,000 CFU, sensitivities to be known tomorrow as per [facility] Hx of Atrial Fibrillation: - d/c TELE - continue Lopressor 5mg q6h ivp prn - Xarelto 20mg po qd for anticoagulation - not given today, pt took out IV access and refused Constipation: - resolved - Pelvic US 06/13: constipation - given fleet oil enema as per recommendations of Dr. Darden Normocytic Anemia: - s/p 2U PRBC - Most likely chronic etiology- unknown baseline - continue home Fe pills - Iron studies as follows Iron: 21 TIBC: 322 %sat: 6 Ferritin: 14.2 B12: 510 Folate: 15.7 - Pelvic US (06/13): trace endometrial fluid - TVUS not done due to patient agitation - Autom[employer] In[employer] Dr. Walker recommended f/u outpatient Deconditioning - physical therapy consulted, does not recommend services at this time Hx of Developmental Delay/ Psychiatric Disorder - agitated again overnight, asking for multiple cups of coffee and not sleeping - current regimen: Buspirone 30mg QD - clonazepam 1mg BID - prozac 10mg QD - Trazadone 100mg HS - Psych on board- reccs appreciated GI ppx: Protonix - not given today, pt refused DVT ppx: patient is ambulating and OOB to chair; on home med of Xarelto Diet: HHD Case discussed with attending Dr. Cassandra Vivas <Cassandra Vivas R - Last Filed: 06/22/18 07:40> Objective - Vital Signs/Intake and Output Vital Signs (last 24 hours): Temp Pulse Resp BP Pulse Ox 97.6 F 142 H 20 130/83 97 06/21/18 06:00 06/21/18 21:36 06/21/18 21:36 06/21/18 21:36 06/21/18 21:36 Intake and Output: 06/22/18 06/22/18 06:59 18:59 Intake Total 1380 Balance 1380 - Medications Medications: Current Medications Acetaminophen (Tylenol 325mg Tab) 650 mg PO Q6H PRN PRN Reason: Fever >100.4 F Last Admin: 06/19/18 11:27 Dose: 650 mg Buspirone HCl (Buspar) 30 mg PO DAILY [facility] Last Admin: 06/21/18 09:33 Dose: 30 mg Clonazepam (Klonopin) 1 mg PO BID [facility] PRN Reason: Protocol Last Admin: 06/21/18 18:51 Dose: 1 mg Dorzolamide HCl (Trusopt) 0 ml OU TID [facility] Last Admin: 06/21/18 18:52 Dose: Not Given Ferrous Gluconate (Fergon) 324 mg PO DAILY [facility] Last Admin: 06/21/18 09:33 Dose: 324 mg Fluoxetine HCl (Prozac) 10 mg PO DAILY [facility] Last Admin: 06/21/18 09:35 Dose: 10 mg Home Med (Home Med) 0 unit OU TID [facility] Last Admin: 06/21/18 18:50 Dose: Not Given Ceftriaxone Sodium (Rocephin 1 Gram Ivpb) 1 gm in 100 mls @ 100 mls/hr IVPB DAILY [facility] PRN Reason: Protocol Last Admin: 06/21/18 09:35 Dose: Not Given Latanoprost (Xalatan Opht) 0 ml OU HS [facility] Last Admin: 06/20/18 21:48 Dose: Not Given Lorazepam (Ativan) 1 mg IVP Q6H PRN; Protocol PRN Reason: Anxiety Last Admin: 06/20/18 21:43 Dose: 1 mg Metoprolol Tartrate (Lopressor) 5 mg IVP Q6 PRN PRN Reason: Systolic Blood Pressure Last Admin: 06/20/18 11:33 Dose: 5 mg Metoprolol Tartrate (Lopressor) 25 mg PO BID [facility] Last Admin: 06/21/18 18:51 Dose: Not Given Pantoprazole Sodium (Protonix Ec Tab) 40 mg PO 0600 [facility] Last Admin: 06/22/18 05:34 Dose: 40 mg Pilocarpine HCl (Isopto Carpine 1% Opht Soln) 0 ml OD QID [facility] Last Admin: 06/21/18 18:51 Dose: Not Given Polyethylene Glycol (Miralax) 17 gm PO DAILY PRN PRN Reason: Constipation Rivaroxaban (Xarelto) 20 mg PO DAILY [facility] PRN Reason: Protocol Last Admin: 06/21/18 09:36 Dose: 20 mg Trazodone HCl (Desyrel) 100 mg PO HS [facility] Last Admin: 06/21/18 21:09 Dose: 100 mg - Labs Labs: 06/17/18 07:00 06/16/18 06:30 PT 19.5 SECONDS (9.4-12.5) H 06/13/18 01:25 INR 1.69 (0.93-1.08) H 06/13/18 01:25 APTT 35.8 Seconds (25.1-36.5) 06/13/18 01:25 Attending/Attestation - Attestation I have personally seen and examined this patient.: Yes I have fully participated in the care of the patient.: Yes I have reviewed all pertinent clinical information, including history, physical exam and plan: Yes Notes (Text): Patient seen and examined by me at 09:50AM 06/21/18 with resident. Case including HPI, physical exam, and assessment and plan discussed with resident. Agree with above with following additions/corrections. Patient is deaf and has developmental delay. Patient is on one-to-one. Per nurse patient was trying to go in and out of other people's rooms. Unable to obtain history from patient secondary to patient being deaf and unable to communicate. Patient has remained afebrile. Physical exam: Gen: Awake and alert sitting up in chair in no acute distress HEENT: Normocephalic atraumatic. Neck is supple. Unable to examine oral pharynx as patient is not opening mouth. Patient is deaf. Cardiovascular: Tachycardic S1, S2. Positive systolic murmur. No rubs or gallops appreciated Pulmonary: Normal respiratory effort. No rhonchi, rales or wheezing appreciated. Gastrointestinal: Soft, nontender, nondistended, positive bowel sounds all 4 quadrants, no guarding Musculoskeletal: Moves all extremities. Positive lower extremity edema Central nervous system: Unable to evaluate as patient is deaf not following commands Dermatologic: Skin warm and dry Assessment and plan: Patient is a 47-year-old female with past medical history significant for developmental delay, autism, congenital rubella syndrome, deafness, blindness, aortic insufficiency, atrial fibrillation maintained Xarelto, glaucoma, and mitral regurgitation that presented to the emergency room with exertional dyspnea, cyanosis, and cough. 1. Fever secondary to UTI. Urine culture positive for gram-positive cocci, sensitivities pending. Fever resolved. Continue Rocephin 1 g IV piggyback daily. Chest x-ray did not show any acute process. Patient refused blood work. 2. Exertional dyspnea, cyanosis, and cough. Likely secondary to valvular disease (severe aortic stenosis) versus anemia. ?diastolic CHF. Symptoms resolved. Continue with O2 via nasal cannula as needed. Patient ambulating well. Cardiology following, recommendations appreciated. S/P 2 units PRBCs. 3. Anemia. Stool for occult blood negative. H&H improved status post 2 units PRBC. Pelvic ultrasound showed trace endometrial fluid. Patient to have close outpatient follow up with automatic riveting machine operator as outpatient. Continue ferrous gluconate daily. Patient has been refusing blood work 4. Constipation. Resolved. Miralax and colace held for now. Continue to monitor 5. Diarrhea. Resolved. Continue to hold miralax and Colace for now. 6. Paroxysmal Atrial Fibrillation. Currently in Sinus rhythm. Patient intermittently refusing PO medications. Continue Xarelto and Metoprolol. Metoprolol dose decreased to 25 mg by mouth twice a day as discussed with cardiology. Cardiology following, recommendations appreciated 7. Severe aortic stenosis/aortic regurgitation. Seen on echo. Cardiology following, recommendations appreciated. Discussed with patient's father, patient 's healthcare proxy. Father does not want any aggressive treatment or surgeries. Patient's father wants conservative management. 8. Psychiatric disorder/Developmental Delay/Congenital Rubella Syndrome. Continue Buspar, Klonopin, prozac, and trazodone. Continue one to one. 9. Glaucoma/blindness. Continue home eye drops. 10. GI/DVT prophylaxis. Protonix and Xarelto. 11. Patient is a DNR/DNI Case was discussed with cardiology Dr. Rg
[2018-06-21] MEDS: Pilocarpine 1% Opht (15ml) OD SCH ×3 (09:34→18:51)
[2018-06-21] MEDS: ALPHAGAN P 0.1% OU SCH ×2 (09:34→18:50)
[2018-06-21] MEDS: cefTRIAXone 1 gm 1 GM/100 ML BAG IVPB SCH (09:35)
[2018-06-21] MEDS: Dorzolamide 2% Opht Sol 10ml OU SCH ×2 (09:36→18:52)
[2018-06-21 21:37] VITALS: RESP 20
[2018-06-22] MEDS: Pantoprazole 40 mg EC Tab PO SCH (05:34)
--- NOTE | 2018-06-22 06:54 | CP.PCM.PN ---
Objective - Vital Signs/Intake and Output Vital Signs (last 24 hours): Temp Pulse Resp BP Pulse Ox 97.6 F 142 H 20 130/83 97 06/21/18 06:00 06/21/18 21:36 06/21/18 21:36 06/21/18 21:36 06/21/18 21:36 Intake and Output: 06/21/18 06/22/18 18:59 06:59 Intake Total 1380 Balance 1380 - Medications Medications: Current Medications Acetaminophen (Tylenol 325mg Tab) 650 mg PO Q6H PRN PRN Reason: Fever >100.4 F Last Admin: 06/19/18 11:27 Dose: 650 mg Buspirone HCl (Buspar) 30 mg PO DAILY [facility] Last Admin: 06/21/18 09:33 Dose: 30 mg Clonazepam (Klonopin) 1 mg PO BID [facility] PRN Reason: Protocol Last Admin: 06/21/18 18:51 Dose: 1 mg Dorzolamide HCl (Trusopt) 0 ml OU TID [facility] Last Admin: 06/21/18 18:52 Dose: Not Given Ferrous Gluconate (Fergon) 324 mg PO DAILY [facility] Last Admin: 06/21/18 09:33 Dose: 324 mg Fluoxetine HCl (Prozac) 10 mg PO DAILY [facility] Last Admin: 06/21/18 09:35 Dose: 10 mg Home Med (Home Med) 0 unit OU TID [facility] Last Admin: 06/21/18 18:50 Dose: Not Given Ceftriaxone Sodium (Rocephin 1 Gram Ivpb) 1 gm in 100 mls @ 100 mls/hr IVPB DAILY [facility] PRN Reason: Protocol Last Admin: 06/21/18 09:35 Dose: Not Given Latanoprost (Xalatan Opht) 0 ml OU HS [facility] Last Admin: 06/20/18 21:48 Dose: Not Given Lorazepam (Ativan) 1 mg IVP Q6H PRN; Protocol PRN Reason: Anxiety Last Admin: 06/20/18 21:43 Dose: 1 mg Metoprolol Tartrate (Lopressor) 5 mg IVP Q6 PRN PRN Reason: Systolic Blood Pressure Last Admin: 06/20/18 11:33 Dose: 5 mg Metoprolol Tartrate (Lopressor) 25 mg PO BID [facility] Last Admin: 06/21/18 18:51 Dose: Not Given Pantoprazole Sodium (Protonix Ec Tab) 40 mg PO 0600 [facility] Last Admin: 06/22/18 05:34 Dose: 40 mg Pilocarpine HCl (Isopto Carpine 1% Opht Soln) 0 ml OD QID [facility] Last Admin: 06/21/18 18:51 Dose: Not Given Polyethylene Glycol (Miralax) 17 gm PO DAILY PRN PRN Reason: Constipation Rivaroxaban (Xarelto) 20 mg PO DAILY [facility] PRN Reason: Protocol Last Admin: 06/21/18 09:36 Dose: 20 mg Trazodone HCl (Desyrel) 100 mg PO HS [facility] Last Admin: 06/21/18 21:09 Dose: 100 mg - Labs Labs: 06/17/18 07:00 06/16/18 06:30 PT 19.5 SECONDS (9.4-12.5) H 06/13/18 01:25 INR 1.69 (0.93-1.08) H 06/13/18 01:25 APTT 35.8 Seconds (25.1-36.5) 06/13/18 01:25
[2018-06-22 07:35] VITALS: BP 105/55; PULSE 120; TEMP 98.4; O2SAT 94
[2018-06-22] MEDS: Pilocarpine 1% Opht (15ml) OD SCH (12:08)
[2018-06-22] MEDS: ALPHAGAN P 0.1% OU SCH (12:08)
[2018-06-22] MEDS: cefTRIAXone 1 gm 1 GM/100 ML BAG IVPB SCH (12:10)
[2018-06-22] MEDS: Dorzolamide 2% Opht Sol 10ml OU SCH (12:10)
--- NOTE | 2018-06-22 16:53 | CP.PCM.DIS ---
<Yolanda Martell - Last Filed: 06/22/18 18:16> Provider - Provider Date of Admission: 06/13/18 04:12 Attending physician: Cassandra Vivas DO Primary care physician: Kingsley Maradiaga MD Consults: Critical Care Cardiology MANAGER OF PURCHASING GI Palliative Care Time Spent in preparation of Discharge (in minutes): 70 Hospital Course - Lab Results Lab Results: Micro Results 06/19/18 20:07 Urine Urine Culture - Final Beta Hemolytic Strep Group B 06/13/18 09:15 Naris MRSA Culture (Admit) - Final MRSA NOT DETECTED Most Recent Lab Values WBC 5.6 10^3/ul (4.5-11.0) D 06/17/18 07:00 RBC 3.97 10^6/uL (3.5-6.1) 06/17/18 07:00 Hgb 10.8 g/dL (12.0-16.0) L 06/17/18 07:00 Hct 35.3 % (36.0-48.0) L 06/17/18 07:00 MCV 88.9 fl (80.0-105.0) 06/17/18 07:00 MCH 27.2 pg (25.0-35.0) 06/17/18 07:00 MCHC 30.6 g/dl (31.0-37.0) L 06/17/18 07:00 RDW 15.1 % (11.5-14.5) H 06/17/18 07:00 Plt Count 192 10^3/uL (120.0-450.0) 06/17/18 07:00 MPV 12.6 fl (7.0-11.0) H 06/17/18 07:00 Gran % 60.6 % (50.0-68.0) 06/17/18 07:00 Lymph % (Auto) 15.3 % (22.0-35.0) L 06/17/18 07:00 [place] % (Auto) 14.6 % (1.0-6.0) H 06/17/18 07:00 Eos % (Auto) 8.3 % (1.5-5.0) H 06/17/18 07:00 Baso % (Auto) 1.2 % (0.0-3.0) 06/17/18 07:00 Gran # 3.41 (1.4-6.5) 06/17/18 07:00 Lymph # (Auto) 0.9 (1.2-3.4) L 06/17/18 07:00 [place] # (Auto) 0.8 (0.1-0.6) H 06/17/18 07:00 Eos # (Auto) 0.5 (0.0-0.7) 06/17/18 07:00 Baso # (Auto) 0.07 K/mm3 (0.0-2.0) 06/17/18 07:00 PT 19.5 SECONDS (9.4-12.5) H 06/13/18 01:25 INR 1.69 (0.93-1.08) H 06/13/18 01:25 APTT 35.8 Seconds (25.1-36.5) 06/13/18 01:25 pCO2 43 mm/Hg (35-45) 06/13/18 05:43 pO2 332.0 mm/Hg (80-100) H 06/13/18 05:43 HCO3 25.4 mmol/L (21-28) 06/13/18 05:43 ABG pH 7.38 (7.35-7.45) 06/13/18 05:43 ABG Total CO2 26.7 mmol.L (22-28) 06/13/18 05:43 ABG O2 Saturation 99.8 % (95-98) H 06/13/18 05:43 ABG Base Excess 0.2 mmol/L (-2.0-3.0) 06/13/18 05:43 ABG Hemoglobin 8.0 g/dL (11.7-17.4) L 06/13/18 05:43 ABG Carboxyhemoglobin 2.0 % (0.5-1.5) H 06/13/18 05:43 POC ABG HHb (Measured) 0.2 % (0-5) 06/13/18 05:43 ABG Methemoglobin 1.2 % (0.0-3.0) 06/13/18 05:43 Hgb O2 Saturation 96.5 % (95.0-98.0) 06/13/18 05:43 Sodium 141 mmol/L (132-148) 06/16/18 06:30 Potassium 4.0 mmol/L (3.6-5.0) 06/16/18 06:30 Chloride 101 mmol/L (98-107) 06/16/18 06:30 Carbon Dioxide 29 mmol/L (21-33) 06/16/18 06:30 Anion Gap 15 (10-20) 06/16/18 06:30 BUN 7 mg/dL (7-21) 06/16/18 06:30 Creatinine 0.6 mg/dl (0.7-1.2) L 06/16/18 06:30 Est GFR ( Amer) > 60 06/16/18 06:30 Est GFR (Non-Af Amer) > 60 06/16/18 06:30 Random Glucose 91 mg/dL (70-110) 06/16/18 06:30 Calcium 9.1 mg/dL (8.4-10.5) 06/16/18 06:30 Iron 21 ug/dL (45-180) L 06/13/18 05:00 TIBC 322 ug/dL (265-497) 06/13/18 05:00 % Saturation 6 % (20-55) L 06/13/18 05:00 Ferritin 14.2 ng/mL 06/13/18 05:00 Total Bilirubin 0.8 mg/dL (0.2-1.3) 06/16/18 06:30 AST 28 U/L (14-36) 06/16/18 06:30 ALT 30 U/L (7-56) 06/16/18 06:30 Alkaline Phosphatase 76 U/L (38-126) 06/16/18 06:30 Lactate Dehydrogenase 523 U/L (333-699) 06/13/18 01:25 Total Creatine Kinase < 20 U/L (35-230) L 06/13/18 01:25 Troponin I < 0.01 ng/mL 06/13/18 01:25 NT-Pro-B Natriuret Pep 1180 pg/mL (0-450) H 06/13/18 01:25 Total Protein 7.0 g/dL (5.8-8.3) 06/16/18 06:30 Albumin 3.9 g/dL (3.0-4.8) 06/16/18 06:30 Globulin 3.0 gm/dL 06/16/18 06:30 Albumin/Globulin Ratio 1.3 (1.1-1.8) 06/16/18 06:30 Vitamin B12 510 pg/mL (239-931) 06/13/18 05:00 Folate 15.7 ng/mL 06/13/18 05:00 Procalcitonin < 0.05 NG/ML (0.19-0.49) L 06/21/18 06:00 Urine Color Light yellow (YELLOW) 06/19/18 20:07 Urine Appearance Clear (CLEAR) 06/19/18 20:07 Urine pH 6.0 (4.7-8.0) 06/19/18 20:07 Ur Specific [place] <= 1.005 (1.005-1.035) 06/19/18 20:07 Urine Protein Negative mg/dL (<30 mg/dL) 06/19/18 20:07 Urine Glucose (UA) Negative mg/dL (NEGATIVE) 06/19/18 20:07 Urine Ketones Negative mg/dL (NEGATIVE) 06/19/18 20:07 Urine Blood Large (NEGATIVE) H 06/19/18 20:07 Urine Nitrate Negative (NEGATIVE) 06/19/18 20:07 Urine Bilirubin Negative (NEGATIVE) 06/19/18 20:07 Urine Urobilinogen 0.2 E.U./dL (<1 E.U./dL) 06/19/18 20:07 Ur Leukocyte Esterase Moderate Kait/uL (NEGATIVE) H 06/19/18 20:07 Urine RBC 15 - 20 /hpf (0-2) 06/19/18 20:07 Urine WBC 10 - 15 /hpf (0-6) 06/19/18 20:07 Ur Epithelial Cells 4 - 5 /hpf (0-5) 06/19/18 20:07 Urine Bacteria Many (NEG) 06/19/18 20:07 Stool Occult Blood Negative (NEGATIVE) 06/14/18 14:30 Blood Type A POSITIVE 06/13/18 09:30 Blood Type Confirm A POSITIVE 06/13/18 09:45 Antibody Screen Negative 06/13/18 09:30 Crossmatch See Detail 06/13/18 09:30 BBK History Checked No verified bt 06/13/18 09:30 - Hospital Course Hospital Course: Ms. Wong is a 47F w/ a PMH significant for developmental delay, deafness, autism, congenital rubella syndrome, glaucoma, mitral regurgitation, aortic insufficiency, atrial fibrillation anticoagulated w/ xarleto who presented to [facility] on 06/13 w/ CC of exertional dyspnea, cyanosis, and cough. She is developmentally delayed, only communicates w/ sign language. Care givers noticed that patient has been less tolerant to ambulation and requires frequent stops when walking to catch breath since Monday. Patient was also noted to have increasing cough and wheezing; denies She was sent to [facility] ED and transferred subsequently to [facility] for admission. Per report, at [facility] pt had no LE DVT on US, CT chest angio showed no PE, did show R sided small pleural effusion; BNP elevated, and subsequently administered lasix. In ED patient was noted to be hypotensive 80s/50s HR in 80s with some runs of tachycardia in @ 115. Per daycare teacher pt has not had any decreased appetite, urinary complaints, bowel complaints, hematochezia, melena, sick contacts, recent travel, wt loss/gain, fever, chill, N/V/D/C. Remainder of ROS was unable to be assessed due to pt's baseline mentation. In the ED, EKG showed NSR @81 with a 1st degree AV block, LAD, and septal infarct. CXR showed mild venous congestion. CT Scan Abdomen Pelvis showed mild pleural effusion and stool in the colon. Labs showed a BNP of 1180. Patient was admitted to telemetry for possible CHF exacerbation. Critical Care was consulted and recommended Lasix 40mg. Upon admission, patient was also noted to have vaginal bleeding. A TVUS was ordered but refused by the patient. MANAGER OF PURCHASING was consulted and recommended outpatient follow up for vaginal bleeding as patient was non compliant with TVUS. Cardiology was consulted and recommended lopressor 25mg BID. GI was consulted and recommended fleet oil enema and two water enemas for constipation. Overnight on multiple occasions, patient was agitated, pacing in and out of her room and requesting coffee. She refused morning labs and PO medications on multiple occasions. Patient was given ativan upon episodes of agitation. The patient's father who is Ms. Wong's health proxy came in for a family meeting and expressed his wish to not proceed with surgical intervention for his daughter's condition and preferred medical management. Palliative care was consulted and recommended continuation with current medication regimen. Palliative care communicated with the patient's father who signed a POLST. UA showed moderate leukocyte esterase and large blood. Urine Culture and sensitivity was positive for Group B Streptococcus and was given a prescription for Augmentin for 5 days upon discharge. Instructions on medications and follow up appointments for discharge were given to the patient in a written document. Discharge Exam - Head Exam Head Exam: ATRAUMATIC, NORMOCEPHALIC - Eye Exam Eye Exam: EOMI - ENT Exam ENT Exam: Mucous Membranes Moist - Neck Exam Neck exam: Full Rom - Respiratory Exam Respiratory Exam: Clear to PA & Lateral, NORMAL BREATHING PATTERN. absent: Stridor - Cardiovascular Exam Cardiovascular Exam: REGULAR RHYTHM, +S1, +S2, Systolic Murmur - GI/Abdominal Exam GI & Abdominal Exam: Normal Bowel Sounds, Soft. absent: Tenderness - Extremities Exam Extremities exam: normal inspection - Back Exam Back exam: NORMAL INSPECTION - Neurological Exam Neurological exam: Alert, Oriented x3 Discharge Plan - Discharge Medications Prescriptions: Amoxicillin/Clavulanate [Augmentin 500 MG-125 MG] 1 tab PO BID #10 tab Lactobacillus Combination No.9 [Adult 50 + Probiotic] 1 each PO BID #20 capsule Metoprolol Tartrate [Lopressor] 25 mg PO BID #60 tab - Follow Up Plan Condition: STABLE Disposition: HOME/ ROUTINE Instructions: Hearing Loss in Adults, Heart Failure, Adult, Atrial Fibrillation , High Blood Pressure in Adults, Neurogenic Bladder in Adults, Preventing Falls in the Older Adult, Developmental Milestones, Heart Failure (DC), Heart Failure (GEN), Pacemaker (DC), Pacemaker (GEN), Pulmonary Edema (DC), Pulmonary Edema ( GEN), Ascites (DC), Ascites (GEN) Additional Instructions: Please follow up your primary care doctor within the next 3 to 5 days. Please follow up with a client evaluator within 1 to 2 weeks. Please follow up with a flagstone layer within 1 to 2 weeks. Please take the new prescriptions given to you as instructed: Augmentin 500mg twice a day for 5 days, Lactobacillus twice a day for 10 days, Lopressor 25mg twice a day. Please resume your home medications as prescribed. Please STOP taking your Atenolol. If symptoms return please return to the Emergency Department. Referrals: Kingsley Maradiaga MD [Primary Care Provider] - Maxime Walker MD [Staff Provider] - <Cassandra Vivas - Last Filed: 06/23/18 16:20> Provider - Provider Date of Admission: 06/13/18 04:12 Attending physician: Cassandra Vivas DO Primary care physician: Kingsley Maradiaga MD Hospital Course - Lab Results Lab Results: Micro Results 06/19/18 20:07 Urine Urine Culture - Final Beta Hemolytic Strep Group B 06/13/18 09:15 Naris MRSA Culture (Admit) - Final MRSA NOT DETECTED Most Recent Lab Values WBC 5.6 10^3/ul (4.5-11.0) D 06/17/18 07:00 RBC 3.97 10^6/uL (3.5-6.1) 06/17/18 07:00 Hgb 10.8 g/dL (12.0-16.0) L 06/17/18 07:00 Hct 35.3 % (36.0-48.0) L 06/17/18 07:00 MCV 88.9 fl (80.0-105.0) 06/17/18 07:00 MCH 27.2 pg (25.0-35.0) 06/17/18 07:00 MCHC 30.6 g/dl (31.0-37.0) L 06/17/18 07:00 RDW 15.1 % (11.5-14.5) H 06/17/18 07:00 Plt Count 192 10^3/uL (120.0-450.0) 06/17/18 07:00 MPV 12.6 fl (7.0-11.0) H 06/17/18 07:00 Gran % 60.6 % (50.0-68.0) 06/17/18 07:00 Lymph % (Auto) 15.3 % (22.0-35.0) L 06/17/18 07:00 [place] % (Auto) 14.6 % (1.0-6.0) H 06/17/18 07:00 Eos % (Auto) 8.3 % (1.5-5.0) H 06/17/18 07:00 Baso % (Auto) 1.2 % (0.0-3.0) 06/17/18 07:00 Gran # 3.41 (1.4-6.5) 06/17/18 07:00 Lymph # (Auto) 0.9 (1.2-3.4) L 06/17/18 07:00 [place] # (Auto) 0.8 (0.1-0.6) H 06/17/18 07:00 Eos # (Auto) 0.5 (0.0-0.7) 06/17/18 07:00 Baso # (Auto) 0.07 K/mm3 (0.0-2.0) 06/17/18 07:00 PT 19.5 SECONDS (9.4-12.5) H 06/13/18 01:25 INR 1.69 (0.93-1.08) H 06/13/18 01:25 APTT 35.8 Seconds (25.1-36.5) 06/13/18 01:25 pCO2 43 mm/Hg (35-45) 06/13/18 05:43 pO2 332.0 mm/Hg (80-100) H 06/13/18 05:43 HCO3 25.4 mmol/L (21-28) 06/13/18 05:43 ABG pH 7.38 (7.35-7.45) 06/13/18 05:43 ABG Total CO2 26.7 mmol.L (22-28) 06/13/18 05:43 ABG O2 Saturation 99.8 % (95-98) H 06/13/18 05:43 ABG Base Excess 0.2 mmol/L (-2.0-3.0) 06/13/18 05:43 ABG Hemoglobin 8.0 g/dL (11.7-17.4) L 06/13/18 05:43 ABG Carboxyhemoglobin 2.0 % (0.5-1.5) H 06/13/18 05:43 POC ABG HHb (Measured) 0.2 % (0-5) 06/13/18 05:43 ABG Methemoglobin 1.2 % (0.0-3.0) 06/13/18 05:43 Hgb O2 Saturation 96.5 % (95.0-98.0) 06/13/18 05:43 Sodium 141 mmol/L (132-148) 06/16/18 06:30 Potassium 4.0 mmol/L (3.6-5.0) 06/16/18 06:30 Chloride 101 mmol/L (98-107) 06/16/18 06:30 Carbon Dioxide 29 mmol/L (21-33) 06/16/18 06:30 Anion Gap 15 (10-20) 06/16/18 06:30 BUN 7 mg/dL (7-21) 06/16/18 06:30 Creatinine 0.6 mg/dl (0.7-1.2) L 06/16/18 06:30 Est GFR ( Amer) > 60 06/16/18 06:30 Est GFR (Non-Af Amer) > 60 06/16/18 06:30 Random Glucose 91 mg/dL (70-110) 06/16/18 06:30 Calcium 9.1 mg/dL (8.4-10.5) 06/16/18 06:30 Iron 21 ug/dL (45-180) L 06/13/18 05:00 TIBC 322 ug/dL (265-497) 06/13/18 05:00 % Saturation 6 % (20-55) L 06/13/18 05:00 Ferritin 14.2 ng/mL 06/13/18 05:00 Total Bilirubin 0.8 mg/dL (0.2-1.3) 06/16/18 06:30 AST 28 U/L (14-36) 06/16/18 06:30 ALT 30 U/L (7-56) 06/16/18 06:30 Alkaline Phosphatase 76 U/L (38-126) 06/16/18 06:30 Lactate Dehydrogenase 523 U/L (333-699) 06/13/18 01:25 Total Creatine Kinase < 20 U/L (35-230) L 06/13/18 01:25 Troponin I < 0.01 ng/mL 06/13/18 01:25 NT-Pro-B Natriuret Pep 1180 pg/mL (0-450) H 06/13/18 01:25 Total Protein 7.0 g/dL (5.8-8.3) 06/16/18 06:30 Albumin 3.9 g/dL (3.0-4.8) 06/16/18 06:30 Globulin 3.0 gm/dL 06/16/18 06:30 Albumin/Globulin Ratio 1.3 (1.1-1.8) 06/16/18 06:30 Vitamin B12 510 pg/mL (239-931) 06/13/18 05:00 Folate 15.7 ng/mL 06/13/18 05:00 Procalcitonin < 0.05 NG/ML (0.19-0.49) L 06/21/18 06:00 Urine Color Light yellow (YELLOW) 06/19/18 20:07 Urine Appearance Clear (CLEAR) 06/19/18 20:07 Urine pH 6.0 (4.7-8.0) 06/19/18 20:07 Ur Specific [place] <= 1.005 (1.005-1.035) 06/19/18 20:07 Urine Protein Negative mg/dL (<30 mg/dL) 06/19/18 20:07 Urine Glucose (UA) Negative mg/dL (NEGATIVE) 06/19/18 20:07 Urine Ketones Negative mg/dL (NEGATIVE) 06/19/18 20:07 Urine Blood Large (NEGATIVE) H 06/19/18 20:07 Urine Nitrate Negative (NEGATIVE) 06/19/18 20:07 Urine Bilirubin Negative (NEGATIVE) 06/19/18 20:07 Urine Urobilinogen 0.2 E.U./dL (<1 E.U./dL) 06/19/18 20:07 Ur Leukocyte Esterase Moderate Kait/uL (NEGATIVE) H 06/19/18 20:07 Urine RBC 15 - 20 /hpf (0-2) 06/19/18 20:07 Urine WBC 10 - 15 /hpf (0-6) 06/19/18 20:07 Ur Epithelial Cells 4 - 5 /hpf (0-5) 06/19/18 20:07 Urine Bacteria Many (NEG) 06/19/18 20:07 Stool Occult Blood Negative (NEGATIVE) 06/14/18 14:30 Blood Type A POSITIVE 06/13/18 09:30 Blood Type Confirm A POSITIVE 06/13/18 09:45 Antibody Screen Negative 06/13/18 09:30 Crossmatch See Detail 06/13/18 09:30 BBK History Checked No verified bt 06/13/18 09:30 Attending/Attestation - Attestation I have personally seen and examined this patient.: Yes I have fully participated in the care of the patient.: Yes I have reviewed all pertinent clinical information, including history, physical exam and plan: Yes Notes (Text): Patient seen and examined by me with resident at 10:00AM 06/22/18. Case including discharge plan discussed with resident. Agree with above with following additions/corrections Patient is a 47-year-old female with past medical history significant for developmental delay, autism, congenital rubella syndrome, deafness, blindness, aortic insufficiency, atrial fibrillation maintained Xarelto, glaucoma, and mitral regurgitation that presented to the emergency room with exertional dyspnea, cyanosis, and cough. Please see H&P for further details. Patient was admitted with exertional dyspnea and pulmonary edema. Patient initially went to [facility] emergency room and was subsequently transferred to [facility]. The patient had lower extremity venous Doppler which did not show DVT. She also had CT angiogram which did not show a PE, however, there was a right-sided pleural effusion. Patient was given Lasix. Patient was hypoxic. Patient was admitted to the ICU. Patient was found to be anemic and was transfused 2 units of packed red blood cells with improvement. Stool for occult blood was negative. Patient also had episodes of SVT and cardiology was consulted. Patient was started on Lopressor. 2-D echo was done which per flagstone layer showed aortic valve is bicuspid and moderately calcified, severe aortic regurgitation, severe aortic stenosis, moderate mitral regurgitation, mild to moderate pulmonary hypertension, ejection fraction within normal range (please see official read for full details ). Patient with deafness and developmental delay. Was unable to get any history throughout patient's stay in the hospital from patient. We did speak to the patient's website/blog editor multiple times. Patient's father who is also deaf and patient's healthcare proxy did present to the hospital. Palliative care was consulted. Patient was made a DNR/DNI. Father did not want any surgeries or further workup for valvular disease. Discussed with cardiology Dr. Rg, patient was continued on metoprolol. Patient was also found to have vaginal bleeding. She was seen by MANAGER OF PURCHASING and close outpatient follow-up was recommended. Patient's presenting symptoms were likely secondary to severe valvular disease versus diastolic CHF. Symptoms did improve. Patient was also maintained on Xarelto for paroxysmal atrial fibrillation. Patient intermittently refuse medications. Patient also refused lab work. She was also found to have constipation. Gastroenterology was consulted. She was given enemas and subsequently had diarrhea. This did resolve. She was continued on BuSpar, Klonopin, Prozac, and trazodone for psychiatric disorder. Patient was continued on one-to-one for history of developmental delay congenital rubella syndrome. She was continued on her home eyedrops for glaucoma. Patient also had an episode of fever. Found have a UTI. Urine culture was positive for beta hemolytic strep. Patient was discharged with Augmentin. Symptoms of exertional dyspnea, cough, and cyanosis resolved upon discharge. She was cleared for discharge by all consultants. On day of discharge, unable to obtain review of systems from patient secondary to patient being deaf. Sign language could not be used as patient did not understand. Per patient's website/blog editor at home they use a different sign language at home. Patient was afebrile on day of discharge Physical exam: Gen: Awake and alert sitting up in chair in no acute distress HEENT: Normocephalic atraumatic. Neck is supple. Unable to examine oral pharynx as patient is not opening mouth. Patient is deaf. Cardiovascular: Tachycardic S1, S2. Positive systolic murmur. No rubs or gallops appreciated Pulmonary: Normal respiratory effort. No rhonchi, rales or wheezing appreciated. Gastrointestinal: Soft, nontender, nondistended, positive bowel sounds all 4 quadrants, no guarding Musculoskeletal: Moves all extremities. Positive lower extremity edema Central nervous system: Unable to evaluate as patient is deaf not following commands Dermatologic: Skin warm and dry Please see chart for full details. Follow up instructions. Patient was given written instructions for website/blog editor and father. Patient follow-up with her primary care doctor within the next 3-5 days. Patient to follow-up with client evaluator within 1-2 weeks. Follow-up with her flagstone layer at [facility] and [facility] [place] within 1-2 weeks. Patient stop home atenolol and take new medications as prescribed. Patient to continue other home medications. Time spent in discharging the patient including chart review, medication reconciliation, discussion with the medical lab tech instructor, consultants, and nursing staff was approximately 40 minutes.
== END 2018-06-22 15:05 | disposition home or self-care (01) | DRG 307 ==
LOC: ED 00:21 → ERH 04:12 → 2RNO 06:25 → CCU 09:14 → 2RNO 06-15 12:42 → 5RNO 06-20 17:07
PROVIDERS: ADMIT Internal Medicine; ATTEND Hospitalist
PROC: 30233N1 Transfusion of Nonautologous Red Blood Cells into Peripheral Vein, Percutaneous Approach (ICD-10-PCS; principal; 2018-06-13)
DX: I35.2 Nonrheumatic aortic (valve) stenosis with insufficiency (principal); I50.30 Unspecified diastolic (congestive) heart failure; D64.9 Anemia, unspecified; F84.0 Autistic disorder; I47.1 Supraventricular tachycardia; N39.0 Urinary tract infection, site not specified; I11.0 Hypertensive heart disease with heart failure; R62.50 Unspecified lack of expected normal physiological development in childhood; I95.9 Hypotension, unspecified; I44.0 Atrioventricular block, first degree; K59.00 Constipation, unspecified; R09.02 Hypoxemia; I27.20 Pulmonary hypertension, unspecified; Z66 Do not resuscitate; I48.0 Paroxysmal atrial fibrillation; H91.3 Deaf nonspeaking, not elsewhere classified; I48.2 Chronic atrial fibrillation; N31.9 Neuromuscular dysfunction of bladder, unspecified; H40.9 Unspecified glaucoma; R19.7 Diarrhea, unspecified; F81.9 Developmental disorder of scholastic skills, unspecified; Z91.19 Patient's noncompliance with other medical treatment and regimen; Z79.01 Long term (current) use of anticoagulants